=== PATIENT | male | born 1970 | race African-American/Black ===

== ENCOUNTER 2019-06-20 14:03 | Outpatient (CLI) | payer MEDICARE, MEDICAID, SELFPAY ==
[2019-06-20 16:14] LABS: Prostate Specific Antigen 0.4 ng/mL (< OR = 4.0)
== END 2019-06-20 14:04 | disposition home or self-care (01) ==
PROVIDERS: PCP Family Medicine; Visit Provider Nurse Practitioner Family
DX: R97.20 Elevated prostate specific antigen [PSA] (principal); R30.0 Dysuria
CPT/HCPCS: 36415; 84153; G0103

== ENCOUNTER 2020-10-16 09:25 | Outpatient (CLI) | payer MEDICARE, MEDICAID, SELFPAY ==
--- NOTE | ~2020-10-16 | XR_ITS ---
EXAMINATION: XR chest 2V DATE: 10/16/2020 09:49 INDICATION: Tobacco use, hypertension TECHNIQUE: PA and lateral views of the chest are obtained. COMPARISON: 04/11/2018 FINDINGS: The lungs are free of acute opacities. There is no pleural effusion or pneumothorax. The ca rdiomediastinal silhouette is normal. There is mild thoracic spondylosis. IMPRESSION: 1. No acute cardiopulmonary abnormality. Reviewed, dictated and finalized at location A.
== END 2020-10-16 09:26 | disposition home or self-care (01) ==
PROVIDERS: PCP Emergency Medicine; Visit Provider Emergency Medicine
DX: Z72.0 Tobacco use (principal); I10 Essential (primary) hypertension
CPT/HCPCS: 71046

== ENCOUNTER 2021-02-13 09:46 | Emergency (ER) | payer MEDICARE, MEDICAID, SELFPAY ==
[2021-02-13 09:50] VITALS: BP 132/83; PULSE 78; RESP 18; TEMP 36.4; O2SAT 98
[2021-02-13 10:19] LABS: Basophils Absolute Auto 0.1 K/mm3 (0.0-0.1); Basophils Percent Auto 0.6 % (0.2-1.2); Eosinophils Absolute Auto 0.1 K/mm3 (0-0.3); Eosinophils Percent Auto 1.4 % (0-4.4); Hematocrit 46.3 % (42.0-52.0); Hemoglobin 15.9 g/dL (14.0-18.0); Immature Granulocyte Absolute 0.03 K/mm3 (0.00-0.031); Immature Granulocyte Percent A 0.3 % (0-0.5); Lymphocytes Absolute Auto 1.69 K/mm3 (0.9-3.2); Lymphocytes Percent Auto 17.7 % (18.3-44.2); Mean Corpuscular HGB Conc 34.3 g/dl (32-36); Mean Corpuscular Hemoglobin 29.3 pg (26-34); Mean Corpuscular Volume 85.3 fl (80-100); Mean Platelet Volume 9.9 fl (7.4-10.4); Monocytes Percent Auto 10.6 % (2.6-8.5); Neutrophils Absolute Auto 6.7 K/mm3 (1.3-6.7); Neutrophils Percent Auto 69.4 % (45.5-73.1); Platelet Count Result 213 k/mm3 (150-375); Red Blood Count 5.43 M/mm3 (4.6-6.20); Red Cell Distribution Width 14.2 % (11.5-14.5); White Blood Count 9.6 K/mm3 (4.5-10.0)
[2021-02-13] MEDS: BELLADONNA ALK/PHENOB ELIX 10 ML, MAG HYDROX/ALUMINUM HYD/SIMETH 30 ML, LIDOCAINE HCL 2... PO (11:12)
[2021-02-13 12:04] LABS: Add Urine Microscopic? YES; Appearance Urine Clear (Clear); Bilirubin Urine Negative (Negative); Blood Urine Negative (Negative); Color Urine Yellow (Yellow); Glucose Urine UA Negative (Negative); Ketones Urine Negative (Negative); Leukocyte Esterase Ur Negative LEU/UL (Negative); Mucus Urine Rare /lpf; Nitrate Urine Negative (Negative); Protein Urine 1+ mg/dL (Negative); Specific Grav Ur 1.026 (1.001-1.035); Squamous Epithelial Cell Urine Rare /hpf (Few)
[2021-02-13 12:47] VITALS: BP 137/97; PULSE 80; RESP 14; TEMP 36.3; O2SAT 99
--- NOTE | 2021-02-13 12:50 | PC.NURSE ---
Patient tells me that he is feeling better at this time. still has pain to report but it is better than when he came into the ED.
--- NOTE | 2021-02-13 12:55 | ED.ABDPAIN ---
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 Patient states that he is seeing his primary care Dr. Reed who told him to present to the emergency department if he felt the pain was bad. He saw him this morning. Patient is being managed by GI specialist Dr. Bear Wild in [place]. He states that he was started on famotidine and dicyclomine and has noted improvement in his symptoms. He states he has also noticed improvement in his symptoms by tailoring his diet to avoid spicy and other foods that he has noted or triggers. Patient reports that he had a CT abdomen pelvis performed on 02-09-21 in [place] but he is unsure of the results. Patient denies any fevers, chills, present vomiting or nausea. Patient denies any bloody or dark stools. <Bárbara Chang PA-C - Last Filed: 02/13/21 15:15> Related Data Home Medications: Home Medications Medication Instructions Recorded Confirmed amlodipine 10 mg tablet 10 mg PO DAILY 09/24/20 09/24/20 atorvastatin 40 mg tablet 40 mg PO DAILY 09/24/20 09/24/20 haloperidol decanoate 100 mg/mL 100 mg IM ONCE 09/24/20 09/24/20 intramuscular solution metoprolol succinate 50 mg 50 mg PO DAILY 09/24/20 09/24/20 tablet,extended release 24 hr risperidone 4 mg tablet 4 mg PO BID 09/24/20 09/24/20 trazodone 100 mg tablet 100 mg PO QHS 09/24/20 09/24/20 aspirin 81 mg PO DAILY 02/13/21 benztropine PO 02/13/21 dicyclomine mg 02/13/21 famotidine PO 02/13/21 <Bárbara Chang PA-C - Last Filed: 02/13/21 15:15> Allergies/Adverse Reactions: Allergies Allergy/AdvReac Type Severity Reaction Status Date / Time lisinopril Allergy Unknown Unknown Verified 02/13/21 09:53 NKDA,NO LATEX Allergy Unknown Unknown Uncoded 09/24/20 10:24 <Bárbara Chang PA-C - Last Filed: 02/13/21 15:15> Review of Systems Review of Systems: CONSTITUTIONAL: Denies fever, chills, or sweats. EYES: Denies visual changes, redness, or discharge. ENT: Denies rhinorrhea, congestion, sore throat, or otalgia. CARDIOVASCULAR: Denies chest pain, palpitations, or edema. RESPIRATORY: Denies cough or dyspnea. GASTROINTESTINAL: Reports intermittent epigastric pain denies abdominal pain, nausea, present vomiting, or diarrhea. GENITOURINARY: Denies dysuria or hematuria. SKIN: Denies rash or itching. MUSCULOSKELETAL: Denies back pain, joint pain, or myalgia. NEUROLOGIC: Denies headache, numbness, dizziness, or weakness. PSYCHIATRIC: Denies anxiety or depression. <Bárbara Chang PA-C - Last Filed: 02/13/21 15:15> [facility] Family History Family History: Family History (Updated 09/24/20 @ 10:28 by Kristy Lu CMA) Father Asthma Sibling Diabetes mellitus Hypertension Other Depression <Bárbara Chang PA-C - Last Filed: 02/13/21 15:15> Social History Social History: Social History (Updated 09/24/20 @ 10:28 by Kristy Lu CMA) Smoking status: Current every day smoker Tobacco type: cigarettes Alcohol intake: never Substance use: never Substance use type: does not use <Bárbara Chang PA-C - Last Filed: 02/13/21 15:15> Exam Narrative: GENERAL: Well-appearing, well-nourished, and in no acute distress. Well-appearing and nontoxic. No signs of discomfort H
--- NOTE | 2021-02-13 13:08 | PC.NURSE ---
Per [place] in lab, chem panel rejected due to hemolysis.
[2021-02-13 13:24] LABS: Alanine Aminotransferase 27 U/L (4-50); Albumin Level 4.8 g/dL (3.5-5.1); Alkaline Phosphatase 125 U/L (38-126); Anion Gap 7 mmol/L (8-16); Aspartate Amino Transferase 16 U/L (17-59); Bilirubin,Total 0.4 mg/dL (0.2-1.3); Blood Urea Nitrogen 10 mg/dL (9-20); Calcium 9.5 mg/dL (8.4-10.2); Carbon Dioxide 32 mmol/L (22-30); Chloride 100 mmol/L (98-107); Estimated CRCL calculation 109 ml/min; Estimated Glomerular Filt Rate > 60; Glucose 126 mg/dL (65-110); Lipase 21 U/L (23-300); Potassium 4.2 mmol/L (3.4-5.0); Sodium 139 mmol/L (137-145)
[2021-02-13 14:14] VITALS: BP 132/91; PULSE 80; RESP 19; TEMP 36.6; O2SAT 97
== END 2021-02-13 14:14 | disposition home or self-care (01) ==
PROVIDERS: Emergency Provider Emergency Medicine; PCP Emergency Medicine
DX: K29.70 Gastritis, unspecified, without bleeding (principal); F17.210 Nicotine dependence, cigarettes, uncomplicated
CPT/HCPCS: 36415; 80053; 81001; 83690; 85025; 99283; A9270

== ENCOUNTER 2021-05-07 12:56 | Outpatient (CLI) | payer MEDICARE, MEDICAID, SELFPAY ==
--- NOTE | ~2021-05-07 | XR_ITS ---
EXAMINATION: XR chest 2V DATE: 05/07/2021 13:10 INDICATION: History of tobacco use TECHNIQUE: PA and lateral views of the chest are obtained. COMPARISON: 10/16/2020 FINDINGS: The lungs are free of acute opacities. There is no pleural effusion or pneumothorax. The ca rdiomediastinal silhouette is normal. There is mild thoracic spondylosis. IMPRESSION: 1. No acute cardiopulmonary abnormality. Reviewed, dictated and finalized at location A. NG MAKER
== END 2021-05-07 12:57 | disposition home or self-care (01) ==
PROVIDERS: PCP Emergency Medicine; Visit Provider Emergency Medicine
DX: Z87.891 Personal history of nicotine dependence (principal); M47.814 Spondylosis without myelopathy or radiculopathy, thoracic region
CPT/HCPCS: 71046

== ENCOUNTER 2022-02-03 09:20 | Outpatient (CLI) | payer MEDICARE, MEDICAID, SELFPAY ==
--- NOTE | ~2022-02-03 | XR_ITS ---
EXAMINATION: XR hip BI 2V w AP pelvis DATE: 02/03/2022 10:35 INDICATION: Pelvic fracture. TECHNIQUE: An anteroposterior view of the pelvis and 2 views of each hip were obtained. COMPARISON: None. FINDINGS: Bone alignment is normal. No fracture. There is mild osteoarthritis of the hips. IMPRESSION: 1. Mild osteoarthritis of the hips. Reviewed, dictated and finalized at location A.
[2022-02-03 11:18] LABS: Creatinine Urine 145.9 mg/dL
[2022-02-03 11:19] LABS: Creatine Kinase 100 U/L (55-170)
[2022-02-03 11:22] LABS: MALB Creatinine Ratio 16.2 mg/g (0-30); Microalbumin Urine Random 23.6 mg/L (0-16.7)
[2022-02-03 11:22] LABS: Rheumatoid Factor < 8.6 IU/ML (<12)
[2022-02-03 12:01] LABS: HIV 1/2 Ab P24 Ag Result Negative (Negative)
[2022-02-03 12:14] LABS: Hepatitis B Surface Antigen Negative (Negative)
[2022-02-03 12:20] LABS: HAV RESULT Negative (Negative); Hepatitis B Core IgM Result Negative (Negative)
[2022-02-03 12:26] LABS: Folic Acid 7.6 ng/mL (2.76->20)
[2022-02-03 12:32] LABS: Hepatitis C Virus Antibody Negative (Negative)
[2022-02-04 15:56] LABS: Rapid Plasma Reagin Non-Reactive (NonReactive)
== END 2022-02-03 09:21 | disposition home or self-care (01) ==
PROVIDERS: PCP Emergency Medicine; Visit Provider Emergency Medicine
DX: N28.9 Disorder of kidney and ureter, unspecified (principal); M19.071 Primary osteoarthritis, right ankle and foot; F20.9 Schizophrenia, unspecified; M16.0 Bilateral primary osteoarthritis of hip
CPT/HCPCS: 36415; 73521; 80074; 82043; 82306; 82550; 82607; 82746; 86038; 86430; 86592; 86703; 87491; 87591; G0432

== ENCOUNTER 2022-02-16 13:12 | Outpatient (CLI) | payer MEDICARE, MEDICAID, SELFPAY ==
[2022-02-16 14:51] LABS: HIV 1/2 Ab P24 Ag Result Negative (Negative)
[2022-02-16 14:53] LABS: Hepatitis B Surface Antigen Negative (Negative)
[2022-02-16 15:00] LABS: HAV RESULT Negative (Negative); Hepatitis B Core IgM Result Negative (Negative)
[2022-02-16 15:11] LABS: Hepatitis C Virus Antibody Negative (Negative)
== END 2022-02-16 13:13 | disposition home or self-care (01) ==
LOC: ANHLAB 13:16
PROVIDERS: PCP Emergency Medicine; Visit Provider Emergency Medicine
DX: Z00.00 Encounter for general adult medical examination without abnormal findings (principal)
CPT/HCPCS: 36415; 80074; 86703; G0432

== ENCOUNTER 2024-06-28 14:29 | Outpatient (CLI) | payer MEDICARE, MEDICAID, SELFPAY ==
--- OUTSIDE RECORDS SUMMARY | 2024-06-21 10:05 | XMS_ITS | CONTINUITY OF CARE DOCUMENT ---
Author Name andriy humbertopeter Address Unknown Organization [facility] Address [address] [place] [address] Phone [phone] Care Team Providers Care Custodian Athletic Equipment Name Role Phone Dariana DIALLO, Gabe Unavailable BRITTNEY SANTANA MD Unavailable [phone] BRITTNEY SANTANA MD Unavailable PROBLEMS Condition Status Date Provider Notes Long-term (current) use of other medications active Leon Jorgensen RN Microalbuminuria active Eyad Dunbar MD Exposure to SARS-associated coronavirus;NEG SWAB active Eyad Dunbar MD Dyspnea completed - Eyad Dunbar MD Diastolic dysfunction active Eyad Dunbar MD Sleep apnea active Eyad Dunbar MD Chest pain, atypical active Eyad Campbell Sinus tachycardia completed - Eyad Dunbar MD Schizophrenia, chronic active Eyad Dunbar MD B12 deficiency active Eyad Dunbar MD Vitamin D deficiency active Eyad Campbell HTN essential active Eyad Dunbar MD angioedema;DUE TO IRENE active Eyad Dunbar MD Tobacco dependence, continuous active Eyad Dunbar MD Hyperlipidemia; with high crp active Eyad Dunbar MD Screening active Eyad Dunbar MD neg tsh and a1c Obesity active Eyad Dunbar MD ENCOUNTERS Date Type Provider Location Encounter Diag nosis - In-person encounter Office Visit Gabe Westbrook MD [facility] - In-person encounter Office Visit Gabe Westbrook MD [facility] - In-person encounter Office Visit Eyad Dunbar MD [facility] Sinus tachycardiaChest pain, atypicalDiastolic dysfunctionDyspnea - In-person encounter Office Visit Eyad Dunbar MD [facility] ObesityScreeningHyperlipi demia; with high crpTobacco dependence, continuousangioedema;DUE TO ACEHTN essentialVitamin D [id number] deficiencySchizophrenia, chronicChest pain, atypicalSleep apnea VITAL SIGNS Date Observation Value Provider Body Mass Index (Ratio) 42.18 kg/m2 Brittney Westbrook MD blood pressure, cuff size regular [facility] blood pressure, diastolic 89 mm[Hg] Ja et blood pressure, systolic 137 mm[Hg] [facility] pulse rate 73 /min Georgi respiratory rate E&M 12 /min Georgi oxygen saturation, oximetry 95 % Georgi weight E&M 294 [lb_av] Georgi height E&M 70 [in_i] Georgi weight E&M 313 [lb_av] Kylee dsouza Body Mass Index (Ratio) 44.91 kg/m2 Brittney Westbrook MD blood pressure, cuff size large Ke rri Timueana blood pressure, diastolic 80 mm[Hg] Ke rri Timueana blood pressure, systolic 144 mm[Hg] Ker ri Timuenenfelder oxygen saturation, oximetry 98 % Izabel Gruenenfelder respiratory rate E&M 12 /min Izabel G ruenenfelder pulse rate 91 /min Izabel Gruenenfe lder weight E&M 313 [lb_av] Izabel Gruenenfe lder height E&M 70 [in_i] Izabel Gruenenfe lder Body Mass Index (Ratio) 41.89 kg/m2 Marylou Dunbar MD blood pressure, diastolic 83 mm[Hg] Ca therine Dora blood pressure, systolic 155 mm[Hg] Cat herine John oxygen saturation, oximetry 97 % Brooklyn John respiratory rate E&M 18 /min Catheri ne Dora pulse rate 102 /min Brooklyn John weight E&M 292 [lb_av] Brooklyn John blood pressure, cuff size regular Ca therine Dora height E&M 70 [in_i] Brooklyn John weight E&M 313 [lb_av] Solomon galarza Body Mass Index (Ratio) 44.91 kg/m2 Marylou Dunbar MD blood pressure, cuff size large Ke rri Gruenenfelder blood pressure, diastolic 80 mm[Hg] Ke rri Gruenenfelder blood pressure, systolic 120 mm[Hg] Kendra ri Gruenenfelder oxygen saturation, oximetry 94 % Izabel Gruenenfelder respiratory rate E&M 16 /min Izabel G ruenenfelder pulse rate 113 /min Izabel Gruenenfe lder weight E&M 313 [lb_av] Izabel Gruenenfe lder height E&M 70 [in_i] Izabel Taylorneishacharles lder ALLERGIES Allergy Name Onset Date Reaction Criticality Status LISINOPRIL Low Criticality active RESULTS Date Observation Value Provider Reference Range Interpretation Location hemoglobin A1C, blood, as % of total hemoglobin 5.6 % OF TOTAL HGB [facility] <5.7 Normal C-reactive protein, by highly sensitive test 3.3 mg/L [facility] High calcium, serum 9.4 mg/dL [facility] 8.6-10.3 Normal carbon dioxide, venous blood 29 mmol/L [facility] 20-32 Normal chloride, serum 101 mmol/L [facility] 98-110 Normal potassium, serum 4.3 mmol/L [facility] 3.5-5.3 Normal sodium, serum 138 mmol/L [facility] 135-146 Normal urea nitrogen/creatinine ratio, serum NOT APPLICABLE (calc) [facility] 6-22 Estimated Glomerular Filtration Rate (calc) 104 mL/min/{1.73_ m2} [facility] > OR = 60 Normal creatinine, serum 0.98 mg/dL [facility] 0.70-1.33 Normal urea nitrogen, blood 9 mg/dL [facility] 7-25 Normal blood glucose, random 92 mg/dL [facility] 65-99 Normal thyroid stimulating hormone, serum 2.19 u[IU]/mL [facility] 0.40-4.50 Normal free thyroxine index 2.6 [facility] 1.4-3.8 Normal thyroxine, serum, total 8.0 ug/dL [facility] 4.9-10.5 Normal triiodothyronine resin uptake 32 % [facility] 22-35 Normal microalbumin/creati nine ratio, urine 79 MCG/MG CREAT [facility] <30 High microalbumin/total urine volume 77 mg/L [facility] Units converted. See lab report for original value. Normal creatinine, random, urine 98 mg/dL [facility] 20-320 Normal cholesterol, non-HDL, total 71 MG/DL (CALC) [facility] <130 Normal cholesterol/HDL ratio, serum, percent 2.7 (calc) [facility] <5.0 Normal LDL cholesterol, serum 53 MG/DL (CALC) [facility] Normal triglyceride, serum, fasting 95 mg/dL [facility] <150 Normal HDL cholesterol, serum 43 mg/dL [facility] > OR = 40 Normal cholesterol, serum 114 mg/dL [facility] <200 Normal pro brain natriuretic peptide 19 pg/mL [facility] 0-121 HISTORY OF MEDICATION USE Medication Status Instructions Dates Provider Indications Com ments aspirin 81 mg tablet,chewable active Eyad Dunbar MD metoprolol tartrate 50 mg tablet active TAKE 1 TABLET BY MOUTH TWICE A DAY WITH MEALS Erin Fan HTN essential omeprazole 20 mg tablet,delayed release (/EC) completed once a day - Eyad Dunbar MD ASPIRIN 81 81 MG ORAL TABLET DELAYED RELEASE completed 1 tablet by mouth once a day - Eyad Dunbar MD Vitamin B-12 1,000 mcg tablet active 1 tablet once a day Izabel Youssef Risperdal 4 mg tablet active Take 1 twice a day Izabel Youssef benztropine 1 mg tablet active Take 1 twice a day Izabel Youssef metoprolol tartrate 50 mg tablet completed one tab. twice daily - Izabel Youssef cholecalciferol (vitamin D3) 50 mcg (2,000 unit) capsule active 1 tablet by mouth once a day Eyad Dunbar MD amlodipine 10 mg tablet active 1 tablet by mouth once a day Izabel Youssef Haldol Decanoate 100 mg/mL solution active 1 every two weeks Izabel Youssef trazodone 100 mg tablet active 3 every night Izabel Youssef Lipitor 40 mg tablet active 1 tablet once a day Izabel Youssef SOCIAL HISTORY Date Observation Value Provider drug use no Gabe Westbrook MD alcohol use, average drinks per day social Gabe Westbrook MD alcohol use yes Gabe Westbrook MD social history E&M S moking History: P atient currently smokes every day. P atient has been counseled to quit. Gabe Westbrook MD social history reviewed E&M revi ewed - no changes required Gabe Westbrook MD smoking/tobacco cess ation, patient education and counseling yes Gabe Westbrook MD smoking status Current every day smoker U natalia Westbrook MD social history E&M S moking History: P atient currently smokes every day. P atient has been counseled to quit. Eyad Dunbar MD social history reviewed E&M revi ewed - no changes required Eyad Dunbar MD smoking/tobacco cess ation, patient education and counseling yes Brooklyn John number of years as a smoker 33 a Brooklyn John smoking history, tot al pack/day 1 ppd Brooklyn Dora cigarette use yes Brooklyn Dora smoking status Current every day smoker C atherine John smoking/tobacco cess ation, patient education and counseling yes Eyad Dunbar MD social history E&M S moking History: P atient currently smokes every day. Eyad Dunbar MD social history reviewed E&M revi ewed - no changes required Eyad Dunbar MD number of years as a smoker 33 a Izabel Gruenenfelder smoking history, tot al pack/day 1 ppd Izabel Youssef cigarette use yes Izabel saab smoking status Current every day smoker K jennifer Youssef INSURANCE PROVIDERS Payer name Policy type / Coverage type [employer] party ID [facility] CHRONIC COMPLETE ASSURE (PPO C-SNP) Medicare [id number] [facility] Medicaid 1 [id number] ADVANCE DIRECTIVES Name Date DISCUSSED - NO DECISION MADE TREATMENT PLAN Date Name Performer [id number],C, B P today: 137/89 P rior BP: 144/80 (10/11/2022) Labs Reviewed: C reat: 0.98 (08/26/2021) C hol: 114 (08/26/2021) HDL: 43 (08/26/2021) LDL: 53 MG/DL (CALC) (08/26/2021) T (08/26/2021) His updated medication list for this problem includes: Aspirin 81 Mg Tablet,chewable (Aspirin) Amlodipine 10 Mg Tablet (Amlodipine) ..... 1 tablet by mouth once a day Metoprolol Tartrate 50 Mg Tablet (Metoprolol tartrate) ..... Take 1 tablet by mouth twice a day with meals Gabe Westbrook MD [id number],C,H is stress test showed no evidence for ischemia depsite going for only 3 minutes on the treadmill. no noted ST changes Gabe Westbrook MD [id number],C,check UACR Us yelena Westbrook MD [id number],C,T he Patient was reencouraged to stop smoking. Gabe Westbrook MD [id number],B, B P today: 144/80 P rior BP: 155/83 (08/06/2021) Labs Reviewed: C reat: 0.98 (08/26/2021) C hol: 114 (08/26/2021) HDL: 43 (08/26/2021) LDL: 53 MG/DL (CALC) (08/26/2021) T (08/26/2021) Gabe Westbrook MD [id number],C,I t is atypical and i will get his latest labs and schedule him for a stress test and an echo Gabe Westbrook MD [id number],C,76 Eyad nino MD [id number],B, Eyad Serot a [id number],S,DID NOT WANT RX OR SURGERY Eyad Dunbar MD [id number],C, H is updated medication list for this problem includes: Lipitor 40 Mg Tablet (Atorvastatin) ..... 1 tablet once a day Eyad Dunbar MD [id number],S, Eyad Serot a [id number],B, Eyad Serot a [id number],B, Eyad Serot a [id number],S, neg ct pe, NEG HOTLERW Eyad Dunbar MD [id number],S, Eyad Serot a [id number],S,NEG STRESS Ball paula Dunbar MD [id number],S,PRO 19 Eyad Dunbar MD [id number],S, Eyad Serot a [id number],S, m od t o get tietarton Eyad Dunbar MD [id number],C,mod Eyad lane MD Cardiology: B P today: 137/89 P rior BP: 144/80 (10/11/2022) Labs Reviewed: C reat: 0.98 (08/26/2021) C hol: 114 (08/26/2021) HDL: 43 (08/26/2021) LDL: 53 MG/DL (CALC) (08/26/2021) T (08/26/2021) His updated medication list for this problem includes: Aspirin 81 Mg Tablet,chewable (Aspirin) Amlodipine 10 Mg Tablet (Amlodipine) ..... 1 tablet by mouth once a day Metoprolol Tartrate 50 Mg Tablet (Metoprolol tartrate) ..... Take 1 tablet by mouth twice a day with meals Gabe Westbrook MD Cardiology:His stres s test showed no evidence for ischemia depsite going for only 3 minutes on the treadmill. no noted ST changes Gabe Westbrook MD Cardiology:check UACR Gabe brito MD Cardiology:The Patient was reenc ouraged to stop smoking. Gabe Westbrook MD Cardiology: B P today: 144/80 P rior BP: 155/83 (08/06/2021) Labs Reviewed: C reat: 0.98 (08/26/2021) C hol: 114 (08/26/2021) HDL: 43 (08/26/2021) LDL: 53 MG/DL (CALC) (08/26/2021) T (08/26/2021) Gabe Westbrook MD Cardiology:It is aty pical and i will get his latest labs and schedule him for a stress test and an echo Gabe Westbrook MD :76 Eyad Dunbar MD Cardiology Eyad Dunbar MD Cardiology:DID NOT WANT RX OR ZAMBRANO RGERY Eyad Dunbar MD Cardiology: H is updated medication list for this problem includes: Lipitor 40 Mg Tablet (Atorvastatin) ..... 1 tablet once a day Eyad Dunbar MD Cardiology Eyad Dunbar MD Cardiology Eyad Dunbar MD Cardiology Eyad Dunbar MD Cardiology: neg ct p e, NEG HOTLERW Eyad Dunbar MD Cardiology Eyad Dunbar MD Cardiology:NEG STRESS Eyad nino MD Cardiology:PRO 19 Eyad Dunbar MD Cardiology Eyad Dunbar MD Cardiology: daisy bonillatayadiel Dunbar MD sleep titration ordered:zhen Dunbar MD :pro [address] pe Eyad Dunbar MD Cardiology New Patient Eyad lane MD Cardiology New Patient Eyad Se domingo DIALLO Cardiology New Patient Eyad Se domingo DIALLO Cardiology New Patient Eyad Se domingo DIALLO Cardiology New Patient Eyadkelley lane MD Cardiology New Patient Eyad Se domingo DIALLO Cardiology New Patient Eyad Se domingo DIALLO Cardiology New Patient Eyad lane MD Cardiology New Patient Eyad lane MD Cardiology New Patient Eyad Se domingo DIALLO Cardiology New Patient :eng ct p e Eyad Dunbar MD Date Name Microalb/Creatinine Urine, Random Complete Echo Complete Echo Stress Routine TSH, free T4, total T3 LIPID PANEL CRP, high sensitivit y BASIC METABOLIC PANE L W/EGFR Microalb/Creatinine Urine, Random HEMOGLOBIN A1c Complete Echo RPM (remote patient monitoring) CT, Coronary Calcium Score Sleep Study Titratio n Stress Routine Sleep Study Home Holter Monitor 24 Hr PROBNP, N TERMINAL CT, Coronary Calcium Score Complete Echo CXR- PA/Lat HISTORY OF PROCEDURES Procedure Date Procedure Name Provider Procedure Notes S tatus BAKARI Westbrook MD completed Nika, 24 or 48 Eyad Dunbar MD co mpleted BAKARI Dunbar MD complete d
--- OUTSIDE RECORDS SUMMARY | 2024-06-21 10:06 | XMS_ITS | Data Portability ---
[facility] [address] [address] Care Team Providers Care Title Clerk Automobile Name Role Phone [facility] Psychia trist KEN MANDUJANO Slate Handler Assessment No assessment recorded. Plan of Treatment Reminders Order Date Submit Date Provider Last Modified By Organization Details Last Modified Time Details Appointments ANY 15 2024 02:00P Carlos A Gregg MD Not available Not available Not available Lab HbA1c (hemoglob in A1c), blood 2022 023 [facility], [address], [place], [address], 04/27/2023 16:02:00 lipid panel, serum 2022 023 [facility], [address], [place], [address], 04/27/2023 16:02:00 TSH, ultra-sen sitive, serum 2023 024 [facility], [address], [place], [address], 10/05/2023 17:24:19 PSA, total, serum or plasma 2023 024 [facility], [address], [place], [address], 10/05/2023 17:24:19 basic metabolic 1998 panel, serum or plasma 2023 024 [facility], [address], [place], [address], 10/05/2023 15:34:51 CBC 2023 024 [facility], [address], [place], [address], 10/05/2023 17:24:19 HbA1c (hemoglob in A1c), blood 2023 024 [facility], [address], [place], [address], 10/05/2023 17:24:19 lipid panel, serum 2023 024 [facility], [address], [place], [address], 10/05/2023 17:24:19 albumin/c reatinine , mass ratio, urine 2023 024 [facility], [address], [place], [address], 10/05/2023 17:24:19 HbA1c (hemoglob in A1c), blood 2023 024 [facility], [address], [place], [address], 03/31/2024 06:26:44 lipid panel, serum 2023 024 [facility], [address], [place], [address], 2024 12:35:44 Referral dentist referral - Poor dentition 2022 023 becka Simental, [address] [place] [address], [address], 05/27/2023 15:34:28 sleep medicine referral - KETAN 2022 023 becka Kirby MD, [address] [place], [address], 02/15/2024 10:45:02 diabetic ophthalmo logy referral - HBA1C 5.7% 2023 024 becka Matchup, [address] , [place], [address], 07/15/2023 12:46:20 Procedures None recorded. Surgeries None recorded. Imaging LDCT, chest, for lung cancer screening 2022 023 [facility] ([facility]), [address] [place], [address], 04/21/2023 14:51:07 LDCT, chest, for lung cancer screening 2023 025 [facility] (Imaging), [address], [place], [address], 06/19/2024 15:53:15 Medication Orders metformin ER 500 mg tablet,ex tended release 24 hr 2022 023 [facility], [address] [place] [address] , [address], [place], [place], [id number], 02/21/2024 12:43:22 OneTouch Ultra Test strips 2022 023 [facility], [address] [place] [address] , [address], [place], [place], [id number], 03/29/2023 12:28:28 losartan 25 mg tablet 2023 024 [facility], [address] [place] [address] , [address], [place], [place], [id number], 05/25/2023 12:30:08 Patient TargetsNo targets recorded. Patient Instructions Encounter Date Encounter Id Patient Instructions Last Modified By Organization Details Last Modified Time 11/24/2022 [id number] type 2 diabetes: care instructions oajao Not available 11/24/2022 15:43:20 Start Metformin, side effects were discussed Colonoscopy report from ? (A clinic in [place]) CXR report from Dentist Records Stop smoking Cardiology as referred Follow up in 6 weeks oajao Not available 11/24/2022 16:42:23 03/29/2023 [id number] Quitting Tobacco : Care Instructions oajao Not available 03/29/2023 12:32:03 body mass index: care instructions oajao Not available 03/29/2023 12:32:52 learning about healthy weight oajao Not available 03/29/2023 12:32:52 sleep apnea: car e instructions oajao Not available 03/29/2023 19:28:[address] Vyas i Note from the C T Tech at [facility] Sleep medicine LDCT Stop smoking Follow up in 3 months and PRN oajao Not available 03/29/2023 12:32:27 05/25/2023 [id number] type 2 diabetes: care instructions oajao Not available 05/25/2023 12:25:50 high blood pressure: care instructions oajao Not available 05/25/2023 12:25:50 learning about h igh blood pressure oajao Not available 05/25/2023 12:25:50 Schedule a follo w up appointment with your orthopedic surgeon,, Dr Ernst Start Losartan Follow up in 3-4 weeks oajao Not available 05/25/2023 12:31:00 07/15/2023 [id number] body mass index: care instructions oajao Not available 07/15/2023 13:00:55 learning about healthy weight oajao Not available 07/15/2023 13:00:55 Sleep medicine a s previously referred Labs in Sep, 2023 Follow up in 6 months and PRN oajao Not available 07/15/2023 13:00:00 The form was completed and faxed, Mr Montanez was also given a copy. I see no reason why he cannot donate plasma but the decision is the medical staff specialist's. oajao Not available 07/15/2023 14:20:47 02/21/2024 [id number] hip arthritis: c are instructions oamaggeio Not available 02/21/2024 12:48:21 Labs LDCT in 03/2024 Sleep medicine as referred Follow up in 5 months and PRN oayazmin Not available 02/21/2024 12:50:32 Reason for Referral Dentist Referral for Impaire d dentition Poor dentition Poor dentition Referring Physician: Timbo Gregg, Internal Medicine, Encounter Date: 11/24/2022 Sleep Medicine Referral for Obstructive sleep apnea syndrome KETAN Referring Physician: Timbo Gregg, Internal Medicine, Encounter Date: 03/29/2023 Diabetic Ophthalmology Refer ral for Type 2 diabetes mellitus without complication HBA1C 5.7% HBA1C 5.7% Referring Physician: Timbo Gregg Internal Medicine, Encounter Date: 05/25/2023 Results Created Date Observation Date Name Description Value Unit Range Abnormal Flag Note LastModifiedBy Organization Detail LastModifiedTime 11/25/1905/07/2021 XR, chest No observ ation record ed. [address], [place], [address], 03/29/2023 12:23:10 12/31/19 23 12/30/2022 XR, chest , 2 view No observ ation record ed. [facility] [address] [place], [address], 03/29/2023 12:23:10 02/23/20 23 02/22/2023 cardi ac stres s test No observ ation record ed. [facility] [address], [place], [address], 03/29/2023 12:23:10 02/23/20 23 02/22/2023 cardi ac stres s test No observ ation record ed. [facility] [address], [place], [address], 03/29/2023 12:23:10 02/23/20 23 02/22/2023 trans -thor acic echoc ardio gram (TTE) (PROC ) No observ ation record ed. [facility] [address], [place], [address], 03/29/2023 12:23:10 04/21/20 23 04/21/2023 LDCT, chest , for lung cance r scree benitez No observ ation record ed. [facility] [address], [place], [address], 05/25/2023 12:17:34 11/09/19 24 02/03/2022 XR, hip + pelvi s, bilat eral No observ ation record ed. [facility] [address], [place], [address], 02/21/2024 12:36:42 Result Notes None recorded. Problems Name Problem SNOMED Code Status Onset Date Resolution Date Notes Provider Name and Address Organization Details Recorded Time History of pneumonia 102291563 Active 2022 Timbo Gregg MD Attn: Corey gee,[address] [place], [address], [facility] 3 14:13:01 Type 2 diabetes mellitus without complicatio n 563740274 Active 2022 Timbo Gregg MD Attn: Corey gee,[address] [place], [address], [place] [facility] 5 10:18:59 SARS-CoV-2 vaccination declined 6680541244 Active 2022 Timbo Gregg MD Attn: Corey gee,[address] [place], [address], [facility] 3 14:32:24 Vaccination declined 0338990662 Active 2022 Timbo Gregg MD Attn: Corey gee,[address] [facility], [place], [address], [place] [facility] 3 14:32:38 Smoker 28664295 Active 2022 Timbo Gregg MD Attn: Corey gee,[address] [facility], [place], [address], [place] [facility] 3 14:32:54 Schizophren ia 78814352 Active 2022 Timbo Gregg MD Attn: Accountagustina g,[address] [facility], [place], [address], [place] [facility] 3 18:56:24 Obstructive sleep apnea syndrome 66987263 Active 2022 Timbo Gregg MD Attn: Loriagustina gee,[address] [facility], [place], [address], [place] [facility] 3 18:56:26 Family history of malignant tumor of hypopharynx 3547923756148 4106 Active 2022 Timbo Gregg MD Attn: Corey gerard,[address] [facility], [place], [address], [place] [facility] 3 15:49:14 Family history of malignant neoplasm of lung 087359522 Active 2022 Timbo Gregg MD Attn: Loriagustina gee,[address] [facility], [place], [address], [place] [facility] 3 15:49:15 Benign essential hypertensio n 5914712 Active 2023 Timbo Gregg MD Attn: Corey gee,[address] [facility], [place], [address], [place] [facility] 5 10:19:06 Influenza vaccination declined 279052559 Active 2023 Timbo Gregg MD Attn: Corey g,[address] [facility], [place], [address], [place] [facility] 4 13:00:18 Osteoarthri tis of hip 555809279 Active 2023 Timbo Gregg MD Attn: Accountagustina gee,[address], [place], [address], [facility] 13:00:20 Problem Notes None recorded. Procedures Surgical History Date Name Laterality Status Provider Name and Address Organization Details Recorded Time 07/15/19 24 Diabetic Foot Exam completed Timbo Gregg MD Attn: Accounting,[address] [facility], [place], [address], [facility] 07/15/2023 13:01:36 05/25/19 24 Diabetic Foot Exam completed Timbo Gregg MD Attn: Accounting,[address] [facility], [place], [address], [facility] 05/25/2023 13:52:53 03/29/20 23 Diabetic Foot Exam completed Timbo Gregg MD Attn: Accounting,[address] [facility], [place], [address], [facility] 03/29/2023 19:25:46 07/09/19 22 colonoscopy completed Timbo Gregg MD Attn: Accounting,[address] [facility], [place], [address], [facility] 12/07/2022 13:25:32 incision completed Tmibo Gregg MD Attn: Accounting,[address] [facility], [place], [address], [facility] 10/06/2022 14:09:42 anterior tracheostomy completed Timbo Gregg MD Attn: Accounting,[address] [facility], [place], [address], [facility] 10/06/2022 14:10:11 procedure on lymph node completed Timbo Gregg MD Attn: Accounting,[address] [facility], [place], [address], [facility] 11/24/2022 15:41:10 Imaging Results Imaging Date Name Status LastModified by Organization Details LastModified Time 05/07/2021 XR, chest completed [facility] [address], [place], [address], 03/29/2023 12:23:10 12/30/2022 XR, chest, [address] [facility] [address] [place], [address], 03/29/2023 12:23:10 02/22/2023 cardiac stress test completed [facility] [address], [place], [address], 03/29/2023 12:23:10 02/22/2023 cardiac stress test completed [facility] [address], [place], [address], 03/29/2023 12:23:10 02/22/2023 trans-thoracic echocardiogram (TTE) (PROC) completed [facility] [address], [place], [address], 03/29/2023 12:23:10 04/21/2023 LDCT, chest, for lung cancer screening completed [facility] [address] [place], [address], 05/25/2023 12:17:34 02/03/2022 XR, hip + pelvis, bilateral completed [address] [place] [address], [address], 02/21/2024 12:36:42 Procedure Notes None recorded. Medical Equipment None Reported. Allergies Allergen ID Allergen Name Allergen Category Reaction Reaction Severity Criticality Documentation Date Start Date Code Code System Note Provider Name and Address Organization Details Recorded Time [id number] lisinopri l medicatio n anaphylax is Not available high 10/06/2022 31080 RxNorm Not Available Not Available Not Available [id number] 546s4 Product containin g angiotens in-conver ting enzyme inhibitor (product) medicatio n anaphylax is severe Not available 10/06/2022 27291 009 SNOMED Not Available Not Available Not Available Medications Name Sig Start Date Stop Date Status Note LastModified by Organization Details LastModified Time atorvasta tin 40 mg tablet TAKE 1 TABLET BY MOUTH EVERY EVENING 2023 active Not Available Not Available Not Avai lable risperido ne 4 mg tablet active Not Available Not Available Not Available haloperid ol decanoate 100 mg/mL intramusc ular solution 11/24 completed Not Available Not Available Not Available triamcino lone acetonide 0.1 % topical cream active Not Available Not Available Not Available OneTouch Ultra Test strips Take 1 strip every day by [employer]. route around the clock for 90 days. active Not Available Not Available No t Available amlodipin e 10 mg tablet TAKE 1 TABLET BY MOUTH DAILY 2024 active Not Available Not Available Not Avai lable trazodone 150 mg tablet active Not Available Not Available Not Available haloperid ol 10 mg tablet active Not Available Not Available Not Available losartan 25 mg tablet TAKE 1 TABLET BY MOUTH DAILY DIRECTED active Not Available Not Available No t Available benztropi ne 1 mg tablet active Not Available Not Available Not Available metoprolo l tartrate 50 mg tablet TAKE 1 TABLET BY MOUTH TWICE A DAY WITH MEALS 2024 active Not Available Not Available Not Avai lable haloperid ol decanoate 50 mg/mL intramusc ular solution 11/24 completed Not Available Not Available Not Available hydroxyzi ne HCl 25 mg tablet active Not Available Not Available No t Available metformin ER 500 mg tablet,ex tended release 24 hr TAKE 1 TABLET BY MOUTH DAILY 02/20 completed I stopped taking the Metformi n 02/21/20 24 Not Available Not Available Not Available peg 3350-elec trolytes 236 gram-22.7 4 gram-6.74 gram-5.86 gram solution active Not Available Not Available Not Available Vitals Date Recorded Body height Provider Name an d Address Organization Details Last Updated DateTime 11/24/2022 175.26 cm Sweetie Blake MA [facility] 023 15:33:37 Date Recorded Body mass index (BMI) Body weight Provider Name and Address Organization Details Last Updated DateTime 11/24/2022 45.3 kg/m2 133387.86 g Sweetie Blake MA [facility] 11/24/2022 15:34:55 Date Recorded Heart rate Provider Name an d Address Organization Details Last Updated DateTime 11/24/2022 70 /min Sweetie Blake MA [facility] 023 15:37:04 Date Recorded Oxygen saturation Oxygen saturation in Arterial blood by Pulse oximetry Provider Name and Address Organization Details Last Updated DateTime 11/24/2022 94 % 94 % Sweetie Blake MA [facility] 11/24/2022 15:37:06 Date Recorded Respiratory rate Provider Name a nd Address Organization Details Last Updated DateTime 11/24/2022 16 /min Sweetie HaydenKARLENE hurd [facility] 023 15:37:08 Date Recorded Body height Provider Name an d Address Organization Details Last Updated DateTime 03/29/2023 175.26 cm Sweetie Blake MA [facility] 023 12:00:53 Date Recorded Body mass index (BMI) Body weight Provider Name and Address Organization Details Last Updated DateTime 03/29/2023 42.9 kg/m2 137356.66 g Sweetie Blake MA [facility] 03/29/2023 12:01:00 Date Recorded Oxygen saturation Oxygen saturation in Arterial blood by Pulse oximetry Provider Name and Address Organization Details Last Updated DateTime 03/29/2023 95 % 95 % Sweetie Blake MA [facility] 03/29/2023 12:05:07 Date Recorded Heart rate Provider Name an d Address Organization Details Last Updated DateTime 03/29/2023 84 /min Sweetie [place] [facility] 023 12:05:10 Date Recorded Respiratory rate Provider Name a nd Address Organization Details Last Updated DateTime 03/29/2023 18 /min Sweetie HaydenKARLENE hurd [facility] 023 12:05:11 Date Recorded Body height Provider Name an d Address Organization Details Last Updated DateTime 05/25/2023 175.26 cm Sweetie Blake MA [facility] 024 11:50:59 Date Recorded Body mass index (BMI) Body weight Provider Name and Address Organization Details Last Updated DateTime 05/25/2023 43.9 kg/m2 312589.93 g KARLENE [facility] 05/25/2023 11:51:11 Date Recorded Oxygen saturation Oxygen saturation in Arterial blood by Pulse oximetry Provider Name and Address Organization Details Last Updated DateTime 05/25/2023 97 % 97 % KARLENE [facility] 05/25/2023 11:52:47 Date Recorded Heart rate Provider Name an d Address Organization Details Last Updated DateTime 05/25/2023 72 /min Sweetie Blake MA [facility] 11:52:48 Date Recorded Body temperature Provider Name a nd Address Organization Details Last Updated DateTime 05/25/2023 97.8 [degF] Sweetie Blake MA [facility] 2023 11:53:19 Date Recorded Body height Provider Name an d Address Organization Details Last Updated DateTime 07/15/2023 175.26 cm Sweetie Blake MA [facility] 12:35:55 Date Recorded Body mass index (BMI) Body weight Provider Name and Address Organization Details Last Updated DateTime 07/15/2023 43.9 kg/m2 671274.93 g Sweetie Blake MA [facility] 07/15/2023 12:36:03 Date Recorded Oxygen saturation Oxygen saturation in Arterial blood by Pulse oximetry Provider Name and Address Organization Details Last Updated DateTime 07/15/2023 95 % 95 % Sweetie Blake MA [facility] 07/15/2023 12:38:09 Date Recorded Heart rate Provider Name an d Address Organization Details Last Updated DateTime 07/15/2023 74 /min Sweetie HaydenKARLENE hurd [facility] 12:38:13 Date Recorded Respiratory rate Provider Name a nd Address Organization Details Last Updated DateTime 07/15/2023 20 /min Sweetie HaydenKARLENE hurd [facility] 12:38:23 Date Recorded Body height Provider Name an d Address Organization Details Last Updated DateTime 02/21/2024 175.26 cm Sweetie Blake MA [facility] 12:32:08 Date Recorded Body mass index (BMI) Body weight Provider Name and Address Organization Details Last Updated DateTime 02/21/2024 44.7 kg/m2 326045.41 g Sweetie Blake MA [facility] 02/21/2024 12:33:30 Date Recorded Heart rate Provider Name an d Address Organization Details Last Updated DateTime 02/21/2024 72 /min Sweetie Blake KARLENE [facility] 12:34:39 Date Recorded Oxygen saturation Oxygen saturation in Arterial blood by Pulse oximetry Provider Name and Address Organization Details Last Updated DateTime 02/21/2024 95 % 95 % Sweetie Blake MA [facility] 02/21/2024 12:34:42 Date Recorded Respiratory rate Provider Name a nd Address Organization Details Last Updated DateTime 02/21/2024 18 /min Sweetie Blake MA [facility] 12:34:50 Date Recorded Systolic blood pressure Diastolic blood pressure Provider Name and Address Organization Details Last Updated DateTime 11/24/2022 116 mm[Hg] 80 mm[Hg] Sweetie Blake MA [facility] 11/24/2022 15:36:39 Date Recorded Systolic blood pressure Diastolic blood pressure Provider Name and Address Organization Details Last Updated DateTime 03/29/2023 124 mm[Hg] 80 mm[Hg] Sweetie Blake MA [facility] 03/29/2023 12:05:05 Date Recorded Systolic blood pressure Diastolic blood pressure Provider Name and Address Organization Details Last Updated DateTime 05/25/2023 130 mm[Hg] 90 mm[Hg] Sweetie [place] [facility] 05/25/2023 11:52:46 Date Recorded Systolic blood pressure Diastolic blood pressure Provider Name and Address Organization Details Last Updated DateTime 07/15/2023 126 mm[Hg] 80 mm[Hg] Sweetie Blake KARLENE [facility] 07/15/2023 12:38:14 Date Recorded Systolic blood pressure Diastolic blood pressure Provider Name and Address Organization Details Last Updated DateTime 02/21/2024 124 mm[Hg] 84 mm[Hg] Sweetie Blake MA [facility] 02/21/2024 12:34:36 Social History Question Answer Notes LastModified by Organizat ion Details LastModified Time Tobacco Smoking Status Current Some Day Smoker Sweetie Blake MA null [facility] 07/15/2023 12:36:29 What Is Your Level Of Alcohol Consumption? Occasional Information not available 10/06/2022 How Many Years Have You Consumed Alcohol? 15 Information not available 03/29/2023 What Is Your Level Of Caffeine Consumption? Moderate Information not available 10/06/2022 What Type Of Diet Are You Following? REGULAR Information not available 10/06/2022 What Was The Date Of Your Most Recent Tobacco Screening? 02/21/2024 Information not available 02/21/2024 What Is Your Current Pack Years? 30ormorepackye ars Information not available 03/29/2023 Do You Use Your Seat Belt Or Car Seat Routinely? Yes Information not available 10/06/2022 At What Age Did You Start Smoking Tobacco? 16 Information not available 03/29/2023 How Much Tobacco Do You Smoke? 1 PPD Information not available 10/06/2022 Do You Use Any Illicit Or Recreational Drugs? No Information not available 10/06/2022 Has Tobacco Cessation Counseling Been Provided? Yes Information not available 10/06/2022 On What Date Was Tobacco Cessation Counseling Provided? 02/21/2024 Information not available 02/21/2024 How Many Years Have You Smoked Tobacco? 35 Information not available 10/06/2022 Do You Or Have You Ever Used Any Other Forms Of Tobacco Or Nicotine? No Information not available 03/29/2023 Sex: Unknown Functional Status None recorded. Mental Status None recorded. Family History Nothing Reported. Medical History Condition Response Coronary Artery Disease N Other Y Atrial Fibrillation N High Blood Pressure Y Kidney or Bladder Problems N Thyroid Problems N GI Problems N Depression N COPD N Blood Clots N Skin Problems N Anemia N Heart Attack ([place]) N Anxiety Disorder Y Diabetes Y Muscle, Joint, or Bone Problems N Seizures/Epilepsy N Acid Reflux (GERD) N Cancer N Stroke N Asthma N Allergies N High Cholesterol Y Hepatitis N Liver Disease N Headaches N Heart Failure N Osteoporosis N Past Encounters Encounter ID Performer Location Encounter Start Date Encounter Closed Date Diagnosis/Indication Diagnosis SNOMED-CT Code Diagnosis ICD10 Code Diagnosis Note [id number] Timbo Gregg MD [facility] ([facility]) [address] [place] [id number] 10/06/2022 13:08:09 10/08/2022 12:20:16 General examination of patient 887332938 Z00.01 Type 2 esha betes mellitus without complication 213828472 E11.9 SARS-CoV-2 vaccination declined 3932963431 Z28.21 History of pneumonia 161 015620 Z87.01 Schizophrenia 28418582 F 20.9 Obstructiv e sleep apnea syndrome 61720219 G47.33 Screening for malignant neoplasm of prostate 347100291 Z12.5 Immunization advised 310 004647 Z71.9 Vaccination declined 893 1962459 Z28.21 Smoker 54910243 F17.200 Chest pain 01762047 R07. 9 [id number] MD [facility] (Adult Med) [address] [place] [id number] 11/24/2022 14:58:11 11/25/2022 12:17:31 Type 2 diabetes mellitus without complication 555607400 E11.9 HBA1C 6.4%Restar t Metformin ER 500 mg Family his tory of malignant neoplasm of lung 935113123 Z80.1 Family his tory of malignant tumor of hypopharynx 3657476491 4358194 Z80.8 Impaired dentition 24053 4008 K03.9 Screening for cancer 158 82214 Z19.1 CXR 2021 (The report is pending)Co lonoscopy 2021 (The report is pending)PS A 09/23/2022 nl [id number] Timbo Gregg MD [facility] (Adult Med) [address] [place] [id number] 03/29/2023 11:31:48 03/30/2023 12:52:06 Type 2 diabetes mellitus without complication 680439207 E11.9 Labs OV 11/24/2022 HBA1C 6.4%Restar t Metformin ER 500 mg Screening for cancer [id number] Z19.1 Colonoscop y 07/09/2021, Q 5 years OV 11/24/2022 CXR 2021 (The report is pending)Co lonoscopy 2021 (The report is pending)PS A 09/23/2022 nl Nicotine dependence 5629 4008 Z87.891 Body mass index 40+ - severely obese 693694842 Z68.41 Obstructiv e sleep apnea syndrome 46110023 G47.33 [id number] MD Serena Sterling (Adult Med) [address] [place] [phone] 05/25/2023 11:43:28 05/26/2023 09:34:07 Benign essential hypertension 8007892 I10 Uncontroll edAdd Losartan 25 mg po daily, side effects were discussedC ontinue Amlodipine and Metoprolol Type 2 esha betes mellitus without complication [id number] E11.9 Labs OV 11/24/2022 HBA1C 6.4%Restar t Metformin ER 500 mg [id number] MD Serena Sterling (Adult Med) [address] [place] [phone] 07/15/2023 12:00:31 07/18/2023 16:43:34 Benign essential hypertension 5112810 I10 Stable OV 05/25/2023Un controlled Add Losartan 25 mg po daily, side effects were discussedC ontinue Amlodipine and Metoprolol Type 2 esha betes mellitus without complication 563797769 E11.9 Labs OV 05/25/2023La bs OV 11/24/2022 HBA1C 6.4%Restar t Metformin ER 500 mg Medication monitoring 39 4929466 Z51.81 Screening for malignant neoplasm of prostate 324097364 Z12.5 Body mass index 40+ - severely obese 883982572 Z68.41 [id number] MD Serena Sterling (Adult Med) [address] [place] [phone] 02/21/2024 12:22:45 02/24/2024 08:11:56 Benign essential hypertension 2725768 I10 StableOV 07/15/2023S table OV 05/25/2023Un controlled Add Losartan 25 mg po daily, side effects were discussedC ontinue Amlodipine and Metoprolol Type 2 esha betes mellitus without complication [id number] E11.9 He has discontinu ed his Metformin on his own. I really don't think I need it, my sugar is okay OV 07/15/2023L abs OV 05/25/2023La bs OV 11/24/2022 HBA1C 6.4%Restar t Metformin ER 500 mg Influenza vaccination declined [id number] Z28.21 Osteoarthritis of hip 23 0756466 M16.9 History of nicotine dependence [id number] 42603305 Z87.891 [place] Tobacco QuitlineHe has failed the Nicotine patch Health Concerns Section Related Observation LastModified by Organization Detai ls LastModified Time None Recorded Concern Status LastModified by Organization Details LastModified Time None Recorded Advance Directives Directive None Recorded Payers Encounter Date Sequence Insurance Name Policy Number Policy Whitaker Covered Member ID Whitaker Member ID Guarantor Name 11/24/2022 2 [place] WHEN [place]ARE OR MEDICARE REPLACEMENT PRIMARY) Arsh Montanez [id number] Arsh Tarik 11/24/2022 1 [facility] (MEDICARE REPLACEMENT/AD VANTAGE - PPO) [id number] Arsh Montanez [id number] Arsh Montanez 03/29/2023 2 [place] MEDICARE REPLACEMENT PRIMARY) Arsh Montanez [id number] Arsh Tarik 03/29/2023 1 [facility] (MEDICARE REPLACEMENT/AD VANTAGE - PPO) [id number] Arsh Montanez [id number] Arsh Montanez 05/25/2023 2 [place] MEDICARE REPLACEMENT PRIMARY) Arsh Montanez [id number] Arsh Tarik 05/25/2023 1 [facility] (MEDICARE REPLACEMENT/AD VANTAGE - PPO) [id number] Arsh Montanez [id number] Arsh Tarik 07/15/2023 2 [place] MEDICARE REPLACEMENT PRIMARY) Arsh Montanez [id number] Arsh Tarik 07/15/2023 1 [facility] (MEDICARE REPLACEMENT/AD VANTAGE - PPO) [id number] Arsh Montanez [id number] Arsh Tarik 02/21/2024 2 [place] OR MEDICARE REPLACEMENT PRIMARY) Arsh Montanez [id number] Arsh Tarik 02/21/2024 1 [facility] (MEDICARE REPLACEMENT/AD VANTAGE - PPO) [id number] Arsh Montanez [id number] Arsh Montanez Notes Date Note Type Note Provider Name and Address Organization Details Recorded Time 11/24/2022 text/html Diabetes F/URepo rted bypatient.Labs:last A1C result: 6.4 Context:taking aspirin daily; not missing doses of medications; no side effects from medications Associated Symptoms:no weight gain; no dizziness; no sweats; no headaches; no confusion; no increased thirst; no increased appetite; no increased urination; no blurred vision; no numbness of feet; no calluses on feet;weight loss (6 lbs) I want to get checked for Cancer It was a white spot, it healed up Mr Tarik brooks, he is unable to get seen by the fitness plan coordinator unless he settles his outstanding bill. He would like to get screened for cancer, he had a lesion on the inner part of the mouth (Lower lip) that has since healed, he has a strong FHX. of cancer and he had A CXR and a colonoscopy last year. Timbo Gregg MD Attn: Accounting,[address], [place], [address], [facility] 11/24/2022 16:43:24 03/29/2023 text/html Diabetes F/URepo rted bypatient.Labs:last A1C result: 6.4 Context:normal range of home blood sugars (in the low 100s); seeing eye doctor regularly; checking feet regularly Associated Symptoms:no weight gain; no weight loss; no dizziness; no sweats; no headaches; no confusion; no increased thirst; no increased appetite; no increased urination; no blurred vision; no numbness of feet; no calluses on feetHypertension F/UReported bypatient.Associated Symptoms:no dizziness; no lightheadedness; no chest pain; no shortness of breath; no palpitations; no edema; no calf pain with exertion Lifestyle:regular exercise; limiting/avoiding salt Medications:taking medications as directed; no side effects from medication It is unclear how reliable a historian he is. Follow up My A1C was 5.8% Dr Dorsey, he said I had cancer but he didn't say where. He also said HIV but it came back negative Mr Tarik brooks, he claims that his PCP mentioned that he had cancer and HIV and later on said that he did not. He has KETAN but never followed up for his repeat tests or CPAP. He has been compliant with his medications and apparently had his eye exam Timbo Gregg MD Attn: Accounting,[address] , [place], [phone], [facility] 03/29/2023 19:30:14 05/25/2023 text/html AnkleReported bypatient.Location:jess ateral (L>R) Quality:aching Severity:moderate; pain level 2/10; worst pain 5/10 Duration:years Timing:chronic Context:cannot identify; I did it in the service, I got tackled playing football Associated Symptoms:no weakness; no numbness; no tingling; no swelling; no redness; no warmth; no ecchymosis; no catching/locking; no popping/clicking; no buckling; no grinding; no instability; no radiation down leg; no drainage; no fever; no chills; no weight loss; no change in bowel/bladder habits Previous Surgery:none Prior Imaging:x ray Previous Injections:none Previous PT:none Work Related:no Working:noDiabetes F/UReported bypatient.Labs:last A1C result: 5.7 Context:taking aspirin daily; not missing doses of medications; no side effects from medications Associated Symptoms:no weight loss; no dizziness; no sweats; no headaches; no confusion; no increased thirst; no increased appetite; no increased urination; no blurred vision; no numbness of feet; no calluses on feet;weight gain (7 lbs)Hypertension F/UReported bypatient.Associated Symptoms:no dizziness; no lightheadedness; no chest pain; no shortness of breath; no palpitations; no edema; no calf pain with exertion Lifestyle:regular exercise; limiting/avoiding salt Medications:taking medications as directed; no side effects from medication; checks blood pressure at home, range: (120/95) I sent you the letter to see if the arthritis in my knees and arthritis......[facility] to see if the problem in my left ankle has caused the other areas to deteriorate? Mr Montanez returns, he is applying for disability based on his chronic bilateral ankle pain. There was an injury to the left ankle while he was serving and the right ankle was sprained. He had seen an orthopedic surgeon at [facility] for this issue and recently requested that I provide a letter, my suggestion was that his records be forwarded. Timbo Gregg MD Attn: Accounting,[address] [place], [address], [place] [facility] 05/25/2023 13:54:31 07/15/2023 text/html Hypertension F/UReported bypatient.Associated Symptoms:no dizziness; no lightheadedness; no chest pain; no shortness of breath; no palpitations; no edema; no calf pain with exertion Lifestyle:regular exercise; limiting/avoiding salt Medications:taking medications as directed; no side effects from medication Not so bad Doing a follow up I am supposed to be doing an evaluation to see if I can get plasma drawn Timbo Gregg MD Attn: Accounting,[address] [facility], [place], [address], [facility] 07/15/2023 14:21:10 02/21/2024 text/html Diabetes F/URepo rted bypatient.Labs:last A1C result: 5.7% (10/05/2023) Context:normal range of home blood sugars (in the low 100s); seeing eye doctor regularly; checking feet regularly; taking aspirin daily; not missing doses of medications; no side effects from medications Associated Symptoms:no weight loss; no dizziness; no sweats; no headaches; no confusion; no increased thirst; no increased appetite; no increased urination; no blurred vision; no numbness of feet; no calluses on feet;weight gain (5 lbs)Medicare Annual Wellness VisitReported bypatient.Diet and Nutrition:healthy diet; discussed vitamin and supplement use Fracture Risk:no history of fractures; no recent explained fracture; no sudden unexplained fractures; no previous musculoskeletal injuries Physical Activity:good physical condition; discussed weightbearing activities; discussed exercise habits Depression Risk:never feels sad, empty, or tearful; no loss of interest in activities; no significant changes in weight; no sleep disturbances or insomnia; no agitation; no loss of energy; no feelings of worthlessness or guilt; no thoughts of suicide; no history of depression;history of mood disorders Orientation:no disorientation to time; no disorientation to date; no disorientation to place Concentration and Memory:no decreased concentrating ability; no memory lapses or loss; does not forget words Hearing:no loss of hearing Vision:worse both distance and near Activities of Daily Living:able to bathe with limited or no assistance; able to contol urination and bowels; able to dress with limited or no assistance; able to feed self with limited or no assistance; able to get out of chair or bed with limited or no assistance; able to groom with limited or no assistance; able to toilet with limited or no assistance Instrumental Activities of Daily Living:able to do house work with limited or no assistance; able to grocery shop with limited or no assistance; able to manage medications with limited or no assistance; able to manage money with limited or no assistance; able to prepare meals with limited or no assistance; able to use the phone with limited or no assistance Falls Risk Assessment:no frequent falls while walking; no fall in the past year; no fall since last visit; no dizziness/vertigo Home Safety:no unsafe david hazzards; no unsafe stairs; no unsafe gas appliances; working smoke/CO detectors; wears protective head gear for biking/high velocity; use of seatbelts; no vision or hearing loss while driving; has hand bars in the bathroom/shower; good lighting in the home No so bad I didn't do that sleep study I was trying to do something with it Mr Montanez had his HBA1C done elsewhere and it was 6.1%, he has stopped his Metformin. He was hoping to have his hip, knee and ankle pain considere service related and was to have some forms completed. 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 Timbo Gregg MD Attn: Accounting,[address] [facility], [place], [address], [facility] 02/21/2024 13:01:21
--- OUTSIDE RECORDS SUMMARY | 2024-06-21 10:06 | XMS_ITS | Patient Health Summary ---
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 This disclosure is being madepursuant to the Care Everywhere program and may not contain all information available regarding this patient. Last updated 18.[facility] Allergies * Lisinopril(Angioedema) -High Criticality Medications * Be aware that medications may not be up to date on this document. Alwaysverify current medications with the patient. * amLODIPine (Norvasc) 10 MG tablet(Started 10/13/2022) Take 1 (one) tablet by mouth once daily * haloperidol (Haldol) 10 MG tablet(Started 10/20/2022) Take 1 (one) tablet by mouth 2 times daily * hydrOXYzine HCl (Atarax) 25 MG tablet(Started 10/12/2022) Take 1 (one) tablet by mouth as directed * benztropine (Cogentin) 1 MG tablet(Started 10/12/2022) Take 1 (one) tablet by mouth as directed * atorvastatin (Lipitor) 40 MG tablet(Started 09/28/2022) Take 1 (one) tablet by mouth at bedtime * metoprolol tartrate IR (Lopressor) 50 MG tablet(Started 09/29/2022) Take 1 (one) tablet by mouth 2 times daily * risperiDONE (RisperDAL) 4 MG tablet(Started 10/08/2022) Take 1 (one) tablet by mouth 2 times daily * traZODone (Desyrel) 150 MG tablet(Started 10/12/2022) Take 2 (two) tablets by mouth nightly as needed for Insomnia * Multiple Vitamin (Multi-Vitamin Daily) TABS Ended Medications* haloperidol decanoate (Haldol Decanoate) 100 MG/ML injection (Started 10/12/2022)(Discontinued) Inject 1 mL into muscle as directed * haloperidol decanoate (Haldol Decanoate) 50 MG/ML injection(Started 10/12/2022) (Discontinued) Inject 1 mL into muscle as directed * Fish Oil-Cholecalciferol ([place]-3 Fish Oil/Vitamin D3) 8481-9815 MG-UNIT CAPS (Discontinued) Take 1,000 mg by mouth once daily * Cyanocobalamin 500 MCG(Discontinued) Dissolve 500 mcg under the tongue once daily * Cholecalciferol 50 MCG (2000 UT)(Discontinued) Take 2,000 Units by mouth once daily * aspirin EC (Ecotrin) 81 MG tablet(Discontinued) Take 1 (one) tablet by mouth once daily * Ascorbic Acid 500 MG(Discontinued) Take 500 mg by mouth once daily Active Problems Problem Noted Date Diagnosed Date Arterial hypotension 10/21/2022 10/21/2022 Arthralgia 10/21/2022 10/21/2022 Undifferentiated schizophrenia 10/21/2022 0 10/21/2022 Schizophrenia, unspecified 10/21/202210/21 Psychotic disorder 10/21/2022 10/21/2022 Schizophrenia 10/21/2022 10/21/2022 Hypersomnia with sleep apnea 10/21/202205/2022 Obesity 10/21/2022 10/21/2022 Tobacco user 10/21/2022 10/21/2022 Type 2 diabetes mellitus without complication 10/21/2022 Bipolar disorder with depression 11/18/2021 10/21/2022 Mixed hyperlipidemia 11/18/2021 10/21/2022 Morbid obesity with BMI of 40.0-44.9, adult 10/2210/21/2022 Other senior living (current) drug therapy 10/21/2022 Microalbuminuria 08/26/2021 10/21/2022 Exposure to SARS-associated coronavirus 08/12/19 22 10/21/2022 Diastolic dysfunction 11/26/2020 10/21/2022 B12 deficiency 09/25/2020 10/21/2022 Chest pain, atypical 09/25/2020 10/21/2022 Chronic schizophrenia 09/25/2020 10/21/2022 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 0 10/21/2022 Encounter for health-related screening 10/21/2022 Hypertension, essential 09/25/2020 10/22/19 23 Other and unspecified hyperlipidemia 09/25/2020 10/21/2022 Obesity 09/25/2020 10/21/2022 Sleep apnea 09/25/2020 10/21/2022 Vitamin D deficiency 09/25/2020 10/21/2022 Tobacco use disorder, continuous 09/25/2020 10/21/2022 Other specified postprocedural states 01/07/2015 History of tracheostomy 01/07/2015 10/22/19 23 Immunizations * FLU VACCINE TRI IIV3 SPLIT PF IM (FLUVIRIN)(Given 06/21/2014) * HEP A/HEP B(Given 08/20/2013, 10/09/2010, 05/25/2010) * INFLUENZA VACCINE(Given 07/20/2012, 06/03/2011) * PNEUMOCOCCAL PPV VACCINE(Given 07/20/2012) * TDAP (7yrs+)(Given 02/23/2010) Social History Tobacco Use Types Packs/Day Years Used Date Smoking Tobacco: Light Smoker Smokeless Tobacco: Never Tobacco Cessation:Ready to Q uit: Not Asked; Counseling Given: Not Answered Alcohol Use Standard Drinks/Week Comments No 0 (1 standard drink = 0.6 oz pur e alcohol) PHQ-2 Answer Date Recorded Patient Health Questionnaire-2 Score 2 06/13/2024 Sex and Gender Information Value Date Recorded Sex Assigned at Not on file Gender Identity Not on file Sexual Orientation Not on file Last Filed Vital Signs Vital Sign Reading Time Taken Comments Blood Pressure 124/80 06/13/2024 1:11 PM [employer]CHO[employer] TE[employer] Pulse 70 06/13/2024 1:11 PM [employer] Temperature 36.1 ??C (97 ??F) 06/13/2024 1:11 PM [employer] Respiratory Rate 16 06/13/2024 1:11 PM [employer] Oxygen Saturation 95% 06/13/2024 1:11 PM [employer] Inhaled Oxygen Concentration - - Weight 129.3 kg (285 lb) 06/13/2024 1:11 PM [employer] Height 175.3 cm (5' 9 ) 06/13/2024 1:11 PM [employer] Body Mass Index 42.09 06/13/2024 1:11 PM [employer] Procedures * XR PELVIS W BILAT HIP 1VW(Performed 06/13/2024) Performed for Chronic left hip pain * XR KNEE BILAT 2VW OR LESS(Performed 06/13/2024) Performed for Chronic pain of left knee * XR LUMBAR SPINE 4VW OR MORE(Performed 06/13/2024) Performed for Chronic midline low back pain without sciatica * ERYTHROCYTE SEDIMENTATION RATE(Performed 06/13/2024) Performed for Polyarthralgia * LUPUS ANTICOAGULANT PANEL W RFLX(Performed 06/13/2024) Performed for Positive TRE (antinuclear antibody) * CARDIOLIPIN ANTIBODY IGA/IGG/IGM PANEL(Performed 06/13/2024) Performed for Positive TRE (antinuclear antibody) * TRE PANEL COMPREHENSIVE(Performed 06/13/2024) Performed for Positive TRE (antinuclear antibody) * TRE BLOOD SCREEN W/REFLEX TITER(Performed 06/13/2024) Performed for Positive RTE (antinuclear antibody) * RIBOSOMAL P PROTEIN ANTIBODY(Performed 06/13/2024) Performed for Positive TRE (antinuclear antibody) * COMPLEMENT C3 C4 PANEL(Performed 06/13/2024) Performed for Positive TRE (antinuclear antibody) * XR KNEE LEFT 4VW OR MORE(Performed 10/05/2023) Performed for Bilateral hip pain * XR KNEE RIGHT 4VW OR MORE(Performed 10/05/2023) Performed for Bilateral hip pain * XR HIP LEFT 2VW OR MORE(Performed 10/05/2023) Performed for Bilateral hip pain * XR PELVIS W RIGHT HIP 2VW(Performed 10/05/2023) Performed for Bilateral hip pain * XR FOOT RIGHT WT BEARING 3VW(Performed 10/05/2023) Performed for Orthopedic aftercare * XR FOOT LEFT WT BEARING 3VW(Performed 10/05/2023) Performed for Orthopedic aftercare * XR FOOT LEFT WT BEARING 3VW(Performed 10/21/2022) Performed for Arthralgia of both ankles * XR FOOT RIGHT WT BEARING 3VW(Performed 10/21/2022) Performed for Arthralgia of both ankles * XR ANKLE LEFT 3VW OR MORE(Performed 10/21/2022) Performed for Arthralgia of both ankles * XR ANKLE RIGHT 3VW OR MORE(Performed 10/21/2022) Performed for Arthralgia of both ankles * LAB MICROBIOLOGY - HPF HISTORICAL(Performed 07/09/2011) * LAB MICROBIOLOGY - HPF HISTORICAL(Performed 07/08/2011) Results * XR Pelvis W Bilat Hip 1Vw (06/13/2024 3:34 PM H[employer]) Anatomical Region Laterality Modality Pelvis Radiographic Marissa ging 06/13/2024 5:09 PM H[employer] TE[employer]ER Impressions 06/13/2024 5:12 PM [employer] TE[employer]ER IMPRESSION: 1. ??No significant hip findings. 2. 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 Indication: M25.552: Pain in left hip G89.29: Other chronic pain Additional History: COMPARISON: None. Findings: The femoral acetabular joint spaces are symmetric and preserved. ??There are small bilateral acetabular spurs. ??Pubic symphysis and sacroiliac joints are unremarkable. ??Incidentally noted are bilateral articulations between the L5 transverse processes and the sacrum raising the possibility of Bertolotti syndrome, in the appropriate clinical scenario. Procedure Note Sarah Mchugh MD - 06/13/2024 PROCEDURE: XR PELVIS W BILAT HIP 1VW DATE/TIME OF EXAM: 06/13/2024 3:35 PM CLINICAL INFORMATION: None relevant/not provided if blank. Indication: M25.552: Pain in left hip G89.29: Other chronic pain Additional History: COMPARISON: None. Findings: The femoral acetabular joint spaces are symmetric and preserved. Thereare small bilateral acetabular spurs. Pubic symphysis and sacroiliac joints are unremarkable. Incidentally noted are bilateral articulationsbetween the L5 transverse processes and the sacrum raising the possibility of Bertolotti syndrome, in the appropriate clinical scenario. IMPRESSION: 1. No significant hip findings. 2. 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 ??No acute findings. 2. ??Mild bilateral knee primary osteoarthritis > Interpreting Provider: Sarah Mchugh MD on 06/13/2024 5:13 PM Narrative 06/13/2024 5:13 PM H[employer] S[employer] BUSINESS TE[employer]ER PROCEDURE: ??XR KNEE BILAT 2VW OR LESS DATE/TIME OF EXAM: ??06/13/2024 3:35 PM CLINICAL INFORMATION: None relevant/not provided if blank. Indication: M25.562: Pain in left knee G89.29: Other chronic pain Additional History: COMPARISON: None. FINDINGS: Findings: In both knees there is slight narrowing of the medial compartment suggesting some degree of cartilage loss. ??The remaining knee compartments are unremarkable and there is no fracture or joint effusion. Procedure Note Sarah Mchugh MD - 06/13/2024 PROCEDURE: XR KNEE BILAT 2VW OR LESS DATE/TIME OF EXAM: 06/13/2024 3:35 PM CLINICAL INFORMATION: None relevant/not provided if blank. Indication: M25.562: Pain in left knee G89.29: Other chronic pain Additional History: COMPARISON: None. FINDINGS: Findings: In both knees there is slight narrowing of the medial compartment suggesting some degree of cartilage loss. The remaining kneecompartments are unremarkable and there is no fracture or joint effusion. IMPRESSION: 1. No acute findings. 2. Mild bilateral knee primary osteoarthritis > Interpreting Provider: Sarah Mchugh MD on 06/13/2024 5:13 PM Panchito Finnegan DO DIAGNOSTIC IMAGING O RDERABLES * XR Lumbar Spine 4Vw or More (06/13/2024 3:34 PM H[employer] TE[employer]ER) Anatomical Region Laterality Modality Spine Radiographic Marissa ging 06/13/2024 5:08 PM H[employer] TE[employer]ER Impressions 06/13/2024 5:09 PM [employer] TE[employer]ER IMPRESSION: 1. ??L3-L4 grade 1-2 degenerative subluxation > Interpreting Provider: Sarah Mchugh MD on 06/13/2024 5:09 PM Narrative 06/13/2024 5:09 PM [employer] TE[employer]ER PROCEDURE: ??XR LUMBAR SPINE 4VW OR MORE DATE/TIME OF EXAM: ??06/13/2024 3:35 PM CLINICAL INFORMATION: None relevant/not provided if blank. Indication: M54.50: Low back pain, unspecified G89.29: Other chronic pain Additional History: COMPARISON: None. Findings: At L3-L4 there is 9 mm of grade 1-2 anterior subluxation of L3 relative to L4 due to chronic facet arthropathy. ??Facet hypertrophy is noted between L2 and S1. ??There is no fracture and interspace heights are preserved. Sacroiliac joints are unremarkable. Procedure Note Sarah Mchugh MD - 06/13/2024 PROCEDURE: XR LUMBAR SPINE 4VW OR MORE DATE/TIME OF EXAM: 06/13/2024 3:35 PM CLINICAL INFORMATION: None relevant/not provided if blank. Indication: M54.50: Low back pain, unspecified G89.29: Other chronic pain Additional History: COMPARISON: None. Findings: At L3-L4 there is 9 mm of grade 1-2 anterior subluxation of L3 relativeto L4 due to chronic facet arthropathy. Facet hypertrophy is noted betweenL2 and S1. There is no fracture and interspace heights are preserved. Sacroiliac joints are unremarkable. IMPRESSION: 1. L3-L4 grade 1-2 degenerative subluxation > Interpreting Provider: Sarah Mchugh MD on 06/13/2024 5:09 PM Panchito Finnegan DO DIAGNOSTIC IMAGING O RDERABLES * CARDIOLIPIN ANTIBODY IGA/IGG/IGM PANEL (06/13/2024 2:38 PM [employer]) Cardiolipin Antibody IgG <9 0 - 14 GPL U/mL [facility] ACCOUNT BILL Comment: ?Negative: ?<15 ?Indeterminate: ? 15 - 20 ?Low-Med Positive: >20 - 80 ?High Positive: ? >80 Cardiolipin Antibody IgM <9 0 - 12 MPL U/mL [facility] ACCOUNT BILL Comment: ?Negative: ?<13 ?Indeterminate: ? 13 - 20 ?Low-Med Positive: >20 - 80 ?High Positive: ? >80 Cardiolipin Antibody IgA <9 0 - 11 APL U/mL [facility] ACCOUNT BILL Comment: ?Negative: ?<12 ?Indeterminate: ? 12 - 20 ?Low-Med Positive: >20 - 80 ?High Positive: ? >80 Blood BLOOD SPECIMEN / Unknown 06/13/2024 2:38 PM H[employer] TE[employer]ER 06/13/2024 Narrative [facility] ACCOUNT BILL - 06/14/2024 5:07 PM H[employer] TE[employer]ER Performed at: ??01 - [facility] [address] [place], [place] ??[id number] Maintenance Mechanic Engine: Tacho Shoemaker PhD, Phone: ??[phone] Panchito Finnegan DO LAB - SEROLOGY ORDER EVI [facility] ACCOUNT BILL [address] [place] [address] * TRE PANEL COMPREHENSIVE (06/13/2024 2:38 PM H[employer] TE[employer]ER) Anti-dsDNA Quantitative <1 0 - 9 IU/mL [facility] ACCOUNT BILL Comment: ? Negative ?<5 ? Equivocal ??5 - 9 ? Positive ?>9 CASER IN Antibody <0.2 0.0 - 0.9 AI [facility] ACCOUNT BILL Melo (DOMENICO) Antibody <0.2 0.0 - 0.9 AI [facility] ACCOUNT BILL Antiscleroderma-70 Antibody 0.2 0.0 - 0.9 AI [facility] ACCOUNT BILL Sjogren's Antibodies (SSA) <0.2 0.0 - 0.9 AI [facility] ACCOUNT BILL Sjogren's Antibodies (SSB) <0.2 0.0 - 0.9 AI [facility] ACCOUNT BILL Antichromatin Antibodies <0.2 0.0 - 0.9 AI [facility] ACCOUNT BILL Josefina-1 Antibody <0.2 0.0 - 0.9 AI [facility] ACCOUNT BILL Centromere B Antibody <0.2 0.0 - 0.9 AI [facility] ACCOUNT BILL See Below Comment [facility] ACCOUNT BILL Comment: Autoantibody ? Disease Association ?Condition ?Frequency ? --------- Antinuclear Antibody, ?SLE, mixed connective Direct (TRE-D) ? tissue diseases ? --------- dsDNA ?SLE ?40 - 60% ? --------- Chromatin ?Drug induced SLE ?90% ? SLE ?48 - 97% ? --------- SSA (Ro) ? SLE ?25 - 35% ? Sjogren's Syndrome ? 40 - 70% ? Lupus ? 100% ? --------- SSB (La) ? SLE ? 10% ? Sjogren's Syndrome ?30% ?--------- Sm (anti-Melo) ?SLE ?15 - 30% ?--------- CASER IN ?Mixed Connective Tissue ? Disease ? 95% (U1 nRNP, ?SLE ?30 - 50% anti-ribonucleoprotein) ??Polymyositis and/or ? Dermatomyositis ? 20% ? --------- Scl-70 (antiDNA ?Scleroderma (diffuse) ?20 - 35% topoisomerase) ? Crest ? 13% ? --------- Josefina-1 ? Polymyositis and/or ? Dermatomyositis ?20 - 40% ? --------- Centromere B ? Scleroderma - Crest ? variant ? 80% Blood BLOOD SPECIMEN / Unknown 06/13/2024 2:38 PM H[employer]ER 06/13/2024 Narrative [facility] ACCOUNT BILL - 06/14/2024 3:08 PM [employer] Performed at: ??01 - [facility] [address], [place], [place] ??[id number] Maintenance Mechanic Engine: Tacho Shoemaker PhD, Phone: ??[phone] Panchito Finnegan DO LAB - SEROLOGY ORDER EVI Performing Organization Address City/State/[facility] Co de Phone Number [facility] ACCOUNT BILL [address] [place] [address] * LUPUS ANTICOAGULANT PANEL W RFLX (06/13/2024 2:38 PM [employer]) PTT-LA 37.3 0.0 - 43.5 sec [facility] ACCOUNT BILL dRVVT 30.7 0.0 - 47.0 sec [facility] ACCOUNT BILL Interpretation Comment: [facility] ACCOUNT BILL Comment:No lupus anticoagula nt was detected. Blood BLOOD SPECIMEN / Unknown 06/13/2024 2:38 PM [employer]ER 06/13/2024 Narrative [facility] ACCOUNT BILL - 06/14/2024 7:07 PM [employer]ER Performed at: ??01 - [facility] [address] ??[id number] Maintenance Mechanic Engine: Jorge Romero MD, Phone: ??[phone] Panchito Finnegan DO LAB - HEMATOLOGY ORD ERICA Performing Organization Address [facility] de Phone Number [facility] ACCOUNT BILL [address] [place] [address] * TRE BLOOD SCREEN W/REFLEX TITER (06/13/2024 2:38 PM [employer]) TRE Negative [facility] ACCOUNT BILL Comment: ? Negative ?? <1:80 ? Borderline ??1:80 ? Positive ?? >1:80 ICAP nomenclature: AC-0 For more information about Hep-2 cell patterns use ANApatterns.org, the official website for the International Consensus on Antinuclear Antibody (TRE) Patterns (ICAP). Blood BLOOD SPECIMEN / Unknown 06/13/2024 2:38 PM H[employer] TE[employer]ER 06/13/2024 Narrative [facility] ACCOUNT BILL - 06/15/2024 7:07 PM H[employer]ER Performed at: ??01 - [facility] [address] ??[id number] Maintenance Mechanic Engine: Tacho Shoemaker PhD, Phone: ??[phone] Panchito Finnegan DO LAB - CHEMISTRY BECKI BUTT Performing Organization Address [facility] Co de Phone Number [facility] ACCOUNT BILL [address] [place] [address] * (ABNORMAL) SED RATE AUTO (ESR) (06/13/2024 2:38 PM [employer]) Erythrocyte Sedimentation Rate Westergren 44(H) 0 - 30 mm/hr [facility] ACCOUNT BILL Blood BLOOD SPECIMEN / Unknown 06/13/2024 2:38 PM [employer]ER 06/13/2024 Narrative [facility] ACCOUNT BILL - 06/14/2024 7:09 AM [employer]ER Performed at: ??01 - [facility] [address] ??[id number] Maintenance Mechanic Engine: Tacho Shoemaker PhD, Phone: ??[phone] Panchito Finnegan DO LAB - HEMATOLOGY ORD ERABLES [facility] ACCOUNT BILL [address] [place] [address] * RIBOSOMAL P PROTEIN ANTIBODY (06/13/2024 2:37 PM [employer]) Antiribosomal P Antibody <0.2 0.0 - 0.9 AI [facility] ACCOUNT BILL Blood BLOOD SPECIMEN / Unknown 06/13/2024 2:37 PM [employer]ER 06/13/2024 Narrative [facility] ACCOUNT BILL - 06/14/2024 1:08 PM [employer]ER Performed at: ??01 - [facility] [address] ??[id number] Maintenance Mechanic Engine: Tacho Shoemaker PhD, Phone: ??[phone] Panchito Finnegan DO LAB - CHEMISTRY ORDE RABLES Performing Organization Address [facility] de Phone Number [facility] ACCOUNT BILL [address] [place] [address] * (ABNORMAL) COMPLEMENT C3 C4 PANEL (06/13/2024 2:37 PM [employer]) Complement C3 178(H) 82 - 167 mg/dL [facility] ACCOUNT BILL Complement C4 41(H) 12 - 38 mg/dL [facility] ACCOUNT BILL Blood BLOOD SPECIMEN / Unknown 06/13/2024 2:37 PM [employer]ER 06/13/2024 Narrative [facility] ACCOUNT BILL - 06/14/2024 1:08 PM [employer] TE[employer]ER Performed at: ??01 - [facility] [address] ??[id number] Maintenance Mechanic Engine: Tacho Shoemaker PhD, Phone: ??[phone] Panchito Finnegan DO LAB - CHEMISTRY BECKI [place] Organization Address City/State/ZIP Co de Phone Number [facility] [place] [address] * XR FOOT RIGHT WT BEARING 3VW (10/05/2023 2:07 PM CDT) Only the most recent of2 resultswithin the time period is included. Anatomical Region Laterality Modality Ankle / Foot Radiographic Marissa ging 10/05/2023 2:10 PM CDT Impressions 10/05/2023 2:14 PM CDT IMPRESSION: No acute osseous abnormality. > Interpreting Provider: Aleks Cabral MD on 10/05/2023 2:14 PM Narrative 10/05/2023 2:14 PM CDT PROCEDURE: ??XR FOOT RIGHT WT BEARING 3VW, XR KNEE LEFT 4VW OR MORE, XR KNEE RIGHT 4VW OR MORE, XR HIP LEFT 2VW OR MORE, XR PELVIS W RIGHT HIP 2VW, XR FOOT LEFT WT BEARING 3VW DATE/TIME OF EXAM: ??10/05/2023 2:07 PM CLINICAL INFORMATION: None relevant/not provided if blank. Indication: Z47.89: Orthopedic aftercare Additional History: COMPARISON: Left foot x-rays dated 10/21/2022. FINDINGS: Right hip: There is no fracture or dislocation. The joint space is normal. A subchondral cyst is suspected in the superior acetabulum. There is a small femoral head osteophyte. There is a transitional vertebra at the lumbosacral junction. Left hip: There is no fracture or dislocation. The joint space is normal. Subchondral cysts are suspected in the superior acetabulum. There is a small femoral head osteophyte. Right knee: No acute fracture or dislocation is present. The joint spaces are normal. No erosions are seen. There is no effusion. ?? There are subchondral cysts in the lateral facet of the trochlea. There is a small lateral patellar osteophyte. Left knee: No acute fracture or dislocation is present. The joint spaces are normal. No erosions are seen. There is no effusion. Right foot: No fracture or dislocation is present. The joint spaces are normal. There is a dorsal talar neck spur. The soft tissues are normal. Left foot: No fracture or dislocation is present. The joint spaces are normal. There are small osteophytes at the first metatarsophalangeal joint. The soft tissues are normal. Procedure Note Aleks Cabral MD - 10/05/2023 PROCEDURE: XR FOOT RIGHT WT BEARING 3VW, XR KNEE LEFT 4VW OR MORE, XRKNEE RIGHT 4VW OR MORE, XR HIP LEFT 2VW OR MORE, XR PELVIS W RIGHT HIP 2VW,XR FOOT LEFT WT BEARING 3VW DATE/TIME OF EXAM: 10/05/2023 2:07 PM CLINICAL INFORMATION: None relevant/not provided if blank. Indication: Z47.89: Orthopedic aftercare Additional History: COMPARISON: Left foot x-rays dated 10/21/2022. FINDINGS: Right hip: There is no fracture or dislocation. The joint space is normal. A subchondral cyst is suspected in the superior acetabulum. There is asmall femoral head osteophyte. There is a transitional vertebra at the lumbosacral junction. Left hip: There is no fracture or dislocation. The joint space is normal.Subchondral cysts are suspected in the superior acetabulum. There is a small femoral head osteophyte. Right knee: No acute fracture or dislocation is present. The joint spaces arenormal. No erosions are seen. There is no effusion. There are subchondralcysts in the lateral facet of the trochlea. There is a small lateral patellar osteophyte. Left knee: No acute fracture or dislocation is present. The joint spaces arenormal. No erosions are seen. There is no effusion. Right foot: No fracture or dislocation is present. The joint spaces are normal.There is a dorsal talar neck spur. The soft tissues are normal. Left foot: No fracture or dislocation is present. The joint spaces are normal.There are small osteophytes at the first metatarsophalangeal joint. The soft tissues are normal. IMPRESSION: No acute osseous abnormality. > Interpreting Provider: Aleks Cabral MD on 10/05/2023 2:14 PM Fabrizio Ernst MD DIAGNOSTIC IMAGING O RDERABLES * XR PELVIS W RIGHT HIP 2VW (10/05/2023 2:07 PM CDT) Anatomical Region Laterality Modality Pelvis Radiographic Marissa ging 10/05/2023 2:10 PM CDT Impressions 10/05/2023 2:14 PM CDT IMPRESSION: No acute osseous abnormality. > Interpreting Provider: Aleks Cabral MD on 10/05/2023 2:14 PM Narrative 10/05/2023 2:14 PM CDT PROCEDURE: ??XR FOOT RIGHT WT BEARING 3VW, XR KNEE LEFT 4VW OR MORE, XR KNEE RIGHT 4VW OR MORE, XR HIP LEFT 2VW OR MORE, XR PELVIS W RIGHT HIP 2VW, XR FOOT LEFT WT BEARING 3VW DATE/TIME OF EXAM: ??10/05/2023 2:07 PM CLINICAL INFORMATION: None relevant/not provided if blank. Indication: Z47.89: Orthopedic aftercare Additional History: COMPARISON: Left foot x-rays dated 10/21/2022. FINDINGS: Right hip: There is no fracture or dislocation. The joint space is normal. A subchondral cyst is suspected in the superior acetabulum. There is a small femoral head osteophyte. There is a transitional vertebra at the lumbosacral junction. Left hip: There is no fracture or dislocation. The joint space is normal. Subchondral cysts are suspected in the superior acetabulum. There is a small femoral head osteophyte. Right knee: No acute fracture or dislocation is present. The joint spaces are normal. No erosions are seen. There is no effusion. ?? There are subchondral cysts in the lateral facet of the trochlea. There is a small lateral patellar osteophyte. Left knee: No acute fracture or dislocation is present. The joint spaces are normal. No erosions are seen. There is no effusion. Right foot: No fracture or dislocation is present. The joint spaces are normal. There is a dorsal talar neck spur. The soft tissues are normal. Left foot: No fracture or dislocation is present. The joint spaces are normal. There are small osteophytes at the first metatarsophalangeal joint. The soft tissues are normal. Procedure Note Aleks Cabral MD - 10/05/2023 PROCEDURE: XR FOOT RIGHT WT BEARING 3VW, XR KNEE LEFT 4VW OR MORE, XRKNEE RIGHT 4VW OR MORE, XR HIP LEFT 2VW OR MORE, XR PELVIS W RIGHT HIP 2VW,XR FOOT LEFT WT BEARING 3VW DATE/TIME OF EXAM: 10/05/2023 2:07 PM CLINICAL INFORMATION: None relevant/not provided if blank. Indication: Z47.89: Orthopedic aftercare Additional History: COMPARISON: Left foot x-rays dated 10/21/2022. FINDINGS: Right hip: There is no fracture or dislocation. The joint space is normal. A subchondral cyst is suspected in the superior acetabulum. There is asmall femoral head osteophyte. There is a transitional vertebra at the lumbosacral junction. Left hip: There is no fracture or dislocation. The joint space is normal.Subchondral cysts are suspected in the superior acetabulum. There is a small femoral head osteophyte. Right knee: No acute fracture or dislocation is present. The joint spaces arenormal. No erosions are seen. There is no effusion. There are subchondralcysts in the lateral facet of the trochlea. There is a small lateral patellar osteophyte. Left knee: No acute fracture or dislocation is present. The joint spaces arenormal. No erosions are seen. There is no effusion. Right foot: No fracture or dislocation is present. The joint spaces are normal.There is a dorsal talar neck spur. The soft tissues are normal. Left foot: No fracture or dislocation is present. The joint spaces are normal.There are small osteophytes at the first metatarsophalangeal joint. The soft tissues are normal. IMPRESSION: No acute osseous abnormality. > Interpreting Provider: Aleks Cabral MD on 10/05/2023 2:14 PM Fabrizio Ernst MD DIAGNOSTIC IMAGING O RDERABLES * XR KNEE RIGHT 4VW OR MORE (10/05/2023 2:07 PM CDT) Anatomical Region Laterality Modality Lower Extremity Radiographic Marissa ging 10/05/2023 2:10 PM CDT Impressions 10/05/2023 2:14 PM CDT IMPRESSION: No acute osseous abnormality. > Interpreting Provider: Aleks Cabral MD on 10/05/2023 2:14 PM Narrative 10/05/2023 2:14 PM CDT PROCEDURE: ??XR FOOT RIGHT WT BEARING 3VW, XR KNEE LEFT 4VW OR MORE, XR KNEE RIGHT 4VW OR MORE, XR HIP LEFT 2VW OR MORE, XR PELVIS W RIGHT HIP 2VW, XR FOOT LEFT WT BEARING 3VW DATE/TIME OF EXAM: ??10/05/2023 2:07 PM CLINICAL INFORMATION: None relevant/not provided if blank. Indication: Z47.89: Orthopedic aftercare Additional History: COMPARISON: Left foot x-rays dated 10/21/2022. FINDINGS: Right hip: There is no fracture or dislocation. The joint space is normal. A subchondral cyst is suspected in the superior acetabulum. There is a small femoral head osteophyte. There is a transitional vertebra at the lumbosacral junction. Left hip: There is no fracture or dislocation. The joint space is normal. Subchondral cysts are suspected in the superior acetabulum. There is a small femoral head osteophyte. Right knee: No acute fracture or dislocation is present. The joint spaces are normal. No erosions are seen. There is no effusion. ?? There are subchondral cysts in the lateral facet of the trochlea. There is a small lateral patellar osteophyte. Left knee: No acute fracture or dislocation is present. The joint spaces are normal. No erosions are seen. There is no effusion. Right foot: No fracture or dislocation is present. The joint spaces are normal. There is a dorsal talar neck spur. The soft tissues are normal. Left foot: No fracture or dislocation is present. The joint spaces are normal. There are small osteophytes at the first metatarsophalangeal joint. The soft tissues are normal. Procedure Note Aleks Cabral MD - 10/05/2023 PROCEDURE: XR FOOT RIGHT WT BEARING 3VW, XR KNEE LEFT 4VW OR MORE, XRKNEE RIGHT 4VW OR MORE, XR HIP LEFT 2VW OR MORE, XR PELVIS W RIGHT HIP 2VW,XR FOOT LEFT WT BEARING 3VW DATE/TIME OF EXAM: 10/05/2023 2:07 PM CLINICAL INFORMATION: None relevant/not provided if blank. Indication: Z47.89: Orthopedic aftercare Additional History: COMPARISON: Left foot x-rays dated 10/21/2022. FINDINGS: Right hip: There is no fracture or dislocation. The joint space is normal. A subchondral cyst is suspected in the superior acetabulum. There is asmall femoral head osteophyte. There is a transitional vertebra at the lumbosacral junction. Left hip: There is no fracture or dislocation. The joint space is normal.Subchondral cysts are suspected in the superior acetabulum. There is a small femoral head osteophyte. Right knee: No acute fracture or dislocation is present. The joint spaces arenormal. No erosions are seen. There is no effusion. There are subchondralcysts in the lateral facet of the trochlea. There is a small lateral patellar osteophyte. Left knee: No acute fracture or dislocation is present. The joint spaces arenormal. No erosions are seen. There is no effusion. Right foot: No fracture or dislocation is present. The joint spaces are normal.There is a dorsal talar neck spur. The soft tissues are normal. Left foot: No fracture or dislocation is present. The joint spaces are normal.There are small osteophytes at the first metatarsophalangeal joint. The soft tissues are normal. IMPRESSION: No acute osseous abnormality. > Interpreting Provider: Aleks Cabral MD on 10/05/2023 2:14 PM Fabrizio Ernst MD DIAGNOSTIC IMAGING O RDERABLES * XR KNEE LEFT 4VW OR MORE (10/05/2023 2:07 PM CDT) Anatomical Region Laterality Modality Lower Extremity Radiographic Marissa ging 10/05/2023 2:10 PM CDT Impressions 10/05/2023 2:14 PM CDT IMPRESSION: No acute osseous abnormality. > Interpreting Provider: Aleks Cabral MD on 10/05/2023 2:14 PM Narrative 10/05/2023 2:14 PM CDT PROCEDURE: ??XR FOOT RIGHT WT BEARING 3VW, XR KNEE LEFT 4VW OR MORE, XR KNEE RIGHT 4VW OR MORE, XR HIP LEFT 2VW OR MORE, XR PELVIS W RIGHT HIP 2VW, XR FOOT LEFT WT BEARING 3VW DATE/TIME OF EXAM: ??10/05/2023 2:07 PM CLINICAL INFORMATION: None relevant/not provided if blank. Indication: Z47.89: Orthopedic aftercare Additional History: COMPARISON: Left foot x-rays dated 10/21/2022. FINDINGS: Right hip: There is no fracture or dislocation. The joint space is normal. A subchondral cyst is suspected in the superior acetabulum. There is a small femoral head osteophyte. There is a transitional vertebra at the lumbosacral junction. Left hip: There is no fracture or dislocation. The joint space is normal. Subchondral cysts are suspected in the superior acetabulum. There is a small femoral head osteophyte. Right knee: No acute fracture or dislocation is present. The joint spaces are normal. No erosions are seen. There is no effusion. ?? There are subchondral cysts in the lateral facet of the trochlea. There is a small lateral patellar osteophyte. Left knee: No acute fracture or dislocation is present. The joint spaces are normal. No erosions are seen. There is no effusion. Right foot: No fracture or dislocation is present. The joint spaces are normal. There is a dorsal talar neck spur. The soft tissues are normal. Left foot: No fracture or dislocation is present. The joint spaces are normal. There are small osteophytes at the first metatarsophalangeal joint. The soft tissues are normal. Procedure Note Aleks Cabral MD - 10/05/2023 PROCEDURE: XR FOOT RIGHT WT BEARING 3VW, XR KNEE LEFT 4VW OR MORE, XRKNEE RIGHT 4VW OR MORE, XR HIP LEFT 2VW OR MORE, XR PELVIS W RIGHT HIP 2VW,XR FOOT LEFT WT BEARING 3VW DATE/TIME OF EXAM: 10/05/2023 2:07 PM CLINICAL INFORMATION: None relevant/not provided if blank. Indication: Z47.89: Orthopedic aftercare Additional History: COMPARISON: Left foot x-rays dated 10/21/2022. FINDINGS: Right hip: There is no fracture or dislocation. The joint space is normal. A subchondral cyst is suspected in the superior acetabulum. There is asmall femoral head osteophyte. There is a transitional vertebra at the lumbosacral junction. Left hip: There is no fracture or dislocation. The joint space is normal.Subchondral cysts are suspected in the superior acetabulum. There is a small femoral head osteophyte. Right knee: No acute fracture or dislocation is present. The joint spaces arenormal. No erosions are seen. There is no effusion. There are subchondralcysts in the lateral facet of the trochlea. There is a small lateral patellar osteophyte. Left knee: No acute fracture or dislocation is present. The joint spaces arenormal. No erosions are seen. There is no effusion. Right foot: No fracture or dislocation is present. The joint spaces are normal.There is a dorsal talar neck spur. The soft tissues are normal. Left foot: No fracture or dislocation is present. The joint spaces are normal.There are small osteophytes at the first metatarsophalangeal joint. The soft tissues are normal. IMPRESSION: No acute osseous abnormality. > Interpreting Provider: Aleks Cabral MD on 10/05/2023 2:14 PM Fabrizio Ernst MD DIAGNOSTIC IMAGING O RDERABLES * XR HIP LEFT 2VW OR MORE (10/05/2023 2:07 PM CDT) Anatomical Region Laterality Modality Pelvis, Lower Extremity Radiogra phic Imaging 10/05/2023 2:10 PM CDT Impressions 10/05/2023 2:14 PM CDT IMPRESSION: No acute osseous abnormality. > Interpreting Provider: Aleks Cabral MD on 10/05/2023 2:14 PM Narrative 10/05/2023 2:14 PM CDT PROCEDURE: ??XR FOOT RIGHT WT BEARING 3VW, XR KNEE LEFT 4VW OR MORE, XR KNEE RIGHT 4VW OR MORE, XR HIP LEFT 2VW OR MORE, XR PELVIS W RIGHT HIP 2VW, XR FOOT LEFT WT BEARING 3VW DATE/TIME OF EXAM: ??10/05/2023 2:07 PM CLINICAL INFORMATION: None relevant/not provided if blank. Indication: Z47.89: Orthopedic aftercare Additional History: COMPARISON: Left foot x-rays dated 10/21/2022. FINDINGS: Right hip: There is no fracture or dislocation. The joint space is normal. A subchondral cyst is suspected in the superior acetabulum. There is a small femoral head osteophyte. There is a transitional vertebra at the lumbosacral junction. Left hip: There is no fracture or dislocation. The joint space is normal. Subchondral cysts are suspected in the superior acetabulum. There is a small femoral head osteophyte. Right knee: No acute fracture or dislocation is present. The joint spaces are normal. No erosions are seen. There is no effusion. ?? There are subchondral cysts in the lateral facet of the trochlea. There is a small lateral patellar osteophyte. Left knee: No acute fracture or dislocation is present. The joint spaces are normal. No erosions are seen. There is no effusion. Right foot: No fracture or dislocation is present. The joint spaces are normal. There is a dorsal talar neck spur. The soft tissues are normal. Left foot: No fracture or dislocation is present. The joint spaces are normal. There are small osteophytes at the first metatarsophalangeal joint. The soft tissues are normal. Procedure Note Aleks Cabral MD - 10/05/2023 PROCEDURE: XR FOOT RIGHT WT BEARING 3VW, XR KNEE LEFT 4VW OR MORE, XRKNEE RIGHT 4VW OR MORE, XR HIP LEFT 2VW OR MORE, XR PELVIS W RIGHT HIP 2VW,XR FOOT LEFT WT BEARING 3VW DATE/TIME OF EXAM: 10/05/2023 2:07 PM CLINICAL INFORMATION: None relevant/not provided if blank. Indication: Z47.89: Orthopedic aftercare Additional History: COMPARISON: Left foot x-rays dated 10/21/2022. FINDINGS: Right hip: There is no fracture or dislocation. The joint space is normal. A subchondral cyst is suspected in the superior acetabulum. There is asmall femoral head osteophyte. There is a transitional vertebra at the lumbosacral junction. Left hip: There is no fracture or dislocation. The joint space is normal.Subchondral cysts are suspected in the superior acetabulum. There is a small femoral head osteophyte. Right knee: No acute fracture or dislocation is present. The joint spaces arenormal. No erosions are seen. There is no effusion. There are subchondralcysts in the lateral facet of the trochlea. There is a small lateral patellar osteophyte. Left knee: No acute fracture or dislocation is present. The joint spaces arenormal. No erosions are seen. There is no effusion. Right foot: No fracture or dislocation is present. The joint spaces are normal.There is a dorsal talar neck spur. The soft tissues are normal. Left foot: No fracture or dislocation is present. The joint spaces are normal.There are small osteophytes at the first metatarsophalangeal joint. The soft tissues are normal. IMPRESSION: No acute osseous abnormality. > Interpreting Provider: Aleks Cabral MD on 10/05/2023 2:14 PM Fabrizio Ernst MD DIAGNOSTIC IMAGING O RDERABLES * XR FOOT LEFT WT BEARING 3VW (10/05/2023 2:07 PM CDT) Only the most recent of2 resultswithin the time period is included. Anatomical Region Laterality Modality Ankle / Foot Radiographic Marissa ging 10/05/2023 2:10 PM CDT Impressions 10/05/2023 2:14 PM CDT IMPRESSION: No acute osseous abnormality. > Interpreting Provider: Aleks Cabral MD on 10/05/2023 2:14 PM Narrative 10/05/2023 2:14 PM CDT PROCEDURE: ??XR FOOT RIGHT WT BEARING 3VW, XR KNEE LEFT 4VW OR MORE, XR KNEE RIGHT 4VW OR MORE, XR HIP LEFT 2VW OR MORE, XR PELVIS W RIGHT HIP 2VW, XR FOOT LEFT WT BEARING 3VW DATE/TIME OF EXAM: ??10/05/2023 2:07 PM CLINICAL INFORMATION: None relevant/not provided if blank. Indication: Z47.89: Orthopedic aftercare Additional History: COMPARISON: Left foot x-rays dated 10/21/2022. FINDINGS: Right hip: There is no fracture or dislocation. The joint space is normal. A subchondral cyst is suspected in the superior acetabulum. There is a small femoral head osteophyte. There is a transitional vertebra at the lumbosacral junction. Left hip: There is no fracture or dislocation. The joint space is normal. Subchondral cysts are suspected in the superior acetabulum. There is a small femoral head osteophyte. Right knee: No acute fracture or dislocation is present. The joint spaces are normal. No erosions are seen. There is no effusion. ?? There are subchondral cysts in the lateral facet of the trochlea. There is a small lateral patellar osteophyte. Left knee: No acute fracture or dislocation is present. The joint spaces are normal. No erosions are seen. There is no effusion. Right foot: No fracture or dislocation is present. The joint spaces are normal. There is a dorsal talar neck spur. The soft tissues are normal. Left foot: No fracture or dislocation is present. The joint spaces are normal. There are small osteophytes at the first metatarsophalangeal joint. The soft tissues are normal. Procedure Note Aleks Cabral MD - 10/05/2023 PROCEDURE: XR FOOT RIGHT WT BEARING 3VW, XR KNEE LEFT 4VW OR MORE, XRKNEE RIGHT 4VW OR MORE, XR HIP LEFT 2VW OR MORE, XR PELVIS W RIGHT HIP 2VW,XR FOOT LEFT WT BEARING 3VW DATE/TIME OF EXAM: 10/05/2023 2:07 PM CLINICAL INFORMATION: None relevant/not provided if blank. Indication: Z47.89: Orthopedic aftercare Additional History: COMPARISON: Left foot x-rays dated 10/21/2022. FINDINGS: Right hip: There is no fracture or dislocation. The joint space is normal. A subchondral cyst is suspected in the superior acetabulum. There is asmall femoral head osteophyte. There is a transitional vertebra at the lumbosacral junction. Left hip: There is no fracture or dislocation. The joint space is normal.Subchondral cysts are suspected in the superior acetabulum. There is a small femoral head osteophyte. Right knee: No acute fracture or dislocation is present. The joint spaces arenormal. No erosions are seen. There is no effusion. There are subchondralcysts in the lateral facet of the trochlea. There is a small lateral patellar osteophyte. Left knee: No acute fracture or dislocation is present. The joint spaces arenormal. No erosions are seen. There is no effusion. Right foot: No fracture or dislocation is present. The joint spaces are normal.There is a dorsal talar neck spur. The soft tissues are normal. Left foot: No fracture or dislocation is present. The joint spaces are normal.There are small osteophytes at the first metatarsophalangeal joint. The soft tissues are normal. IMPRESSION: No acute osseous abnormality. > Interpreting Provider: Aleks Cabral MD on 10/05/2023 2:14 PM Fabrizio Ernst MD DIAGNOSTIC IMAGING O RDERABLES * XR ANKLE LEFT 3VW OR MORE (10/21/2022 1:59 PM CDT) Anatomical Region Laterality Modality Lower Extremity Radiographic Marissa ging 10/21/2022 3:54 PM CDT Impressions 10/21/2022 3:58 PM CDT IMPRESSION: Unremarkable radiographs of the extremities as described. ?? > Interpreting Provider: Loki Owens MD on 10/21/2022 3:58 PM Narrative 10/21/2022 3:58 PM CDT PROCEDURE: ??XR FOOT LEFT WT BEARING 3VW, XR FOOT RIGHT WT BEARING 3VW, XR ANKLE LEFT 3VW OR MORE, XR ANKLE RIGHT 3VW OR MORE, DATE/TIME OF EXAM: 10/21/2022 1:59 PM, LOCATION ??[facility] INDICATION: M25.571: Arthralgia of both ankles M25.572: Arthralgia of both ankles ADDITIONAL CLINICAL INFORMATION: Ordering Provider Reason For Exam: ??Fracture COMPARISON: None. Findings: Right ankle: No fractures or dislocations seen. Mineral density is normal. Joint spaces are preserved. Corticated bony ossicles noted at the tip of the medial malleolus. ??No bony erosions or destructions are seen. ??Soft tissue swelling is noted predominantly along the lateral side of the ankle. Left ankle: No fractures or dislocations seen. Mineral density is normal. Joint spaces are preserved. ??No bony erosions or destructions are seen. Soft tissue swelling noted dominantly along the lateral and anterior segment of the ankle. ?? Right foot: No fractures or dislocations seen. Mineral density is normal. Joint spaces are preserved. ??No bony erosions or destructions are seen. ??No significant soft tissue swelling noted. ?? Left foot: No fractures or dislocations seen. Mineral density is normal. Joint spaces are preserved. ??No bony erosions or destructions are seen. ??No significant soft tissue swelling noted. ?? Procedure Note Loki Owens MD - 10/21/2022 PROCEDURE: XR FOOT LEFT WT BEARING 3VW, XR FOOT RIGHT WT BEARING 3VW,XR ANKLE LEFT 3VW OR MORE, XR ANKLE RIGHT 3VW OR MORE, DATE/TIME OF EXAM: 10/21/2022 1:59 PM, LOCATION [facility] INDICATION: M25.571: Arthralgia of both ankles M25.572: Arthralgia of both ankles ADDITIONAL CLINICAL INFORMATION: Ordering Provider Reason For Exam: Fracture COMPARISON: None. Findings: Right ankle: No fractures or dislocations seen. Mineral density is normal. Joint spaces are preserved. Corticated bony ossicles noted at the tip of the medial malleolus. No bony erosions or destructions are seen. Soft tissue swelling is noted predominantly along the lateral side of theankle. Left ankle: No fractures or dislocations seen. Mineral density is normal. Joint spaces are preserved. No bony erosions or destructions are seen. Soft tissue swelling noted dominantly along the lateral and anterior segment of the ankle. Right foot: No fractures or dislocations seen. Mineral density is normal. Joint spaces are preserved. No bony erosions or destructions are seen.No significant soft tissue swelling noted. Left foot: No fractures or dislocations seen. Mineral density is normal. Joint spaces are preserved. No bony erosions or destructions are seen.No significant soft tissue swelling noted. IMPRESSION: Unremarkable radiographs of the extremities as described. > Interpreting Provider: Loki Owens MD on 10/21/2022 3:58PM Fabrizio Ernst MD DIAGNOSTIC IMAGING O RDERABLES * XR ANKLE RIGHT 3VW OR MORE (10/21/2022 1:58 PM CDT) Anatomical Region Laterality Modality Lower Extremity Radiographic Marissa ging 10/21/2022 3:54 PM CDT Impressions 10/21/2022 3:58 PM CDT IMPRESSION: Unremarkable radiographs of the extremities as described. ?? > Interpreting Provider: Loki Owens MD on 10/21/2022 3:58 PM Narrative 10/21/2022 3:58 PM CDT PROCEDURE: ??XR FOOT LEFT WT BEARING 3VW, XR FOOT RIGHT WT BEARING 3VW, XR ANKLE LEFT 3VW OR MORE, XR ANKLE RIGHT 3VW OR MORE, DATE/TIME OF EXAM: 10/21/2022 1:59 PM, LOCATION ??[facility] INDICATION: M25.571: Arthralgia of both ankles M25.572: Arthralgia of both ankles ADDITIONAL CLINICAL INFORMATION: Ordering Provider Reason For Exam: ??Fracture COMPARISON: None. Findings: Right ankle: No fractures or dislocations seen. Mineral density is normal. Joint spaces are preserved. Corticated bony ossicles noted at the tip of the medial malleolus. ??No bony erosions or destructions are seen. ??Soft tissue swelling is noted predominantly along the lateral side of the ankle. Left ankle: No fractures or dislocations seen. Mineral density is normal. Joint spaces are preserved. ??No bony erosions or destructions are seen. Soft tissue swelling noted dominantly along the lateral and anterior segment of the ankle. ?? Right foot: No fractures or dislocations seen. Mineral density is normal. Joint spaces are preserved. ??No bony erosions or destructions are seen. ??No significant soft tissue swelling noted. ?? Left foot: No fractures or dislocations seen. Mineral density is normal. Joint spaces are preserved. ??No bony erosions or destructions are seen. ??No significant soft tissue swelling noted. ?? Procedure Note Loki Owens MD - 10/21/2022 PROCEDURE: XR FOOT LEFT WT BEARING 3VW, XR FOOT RIGHT WT BEARING 3VW,XR ANKLE LEFT 3VW OR MORE, XR ANKLE RIGHT 3VW OR MORE, DATE/TIME OF EXAM: 10/21/2022 1:59 PM, LOCATION [facility] INDICATION: M25.571: Arthralgia of both ankles M25.572: Arthralgia of both ankles ADDITIONAL CLINICAL INFORMATION: Ordering Provider Reason For Exam: Fracture COMPARISON: None. Findings: Right ankle: No fractures or dislocations seen. Mineral density is normal. Joint spaces are preserved. Corticated bony ossicles noted at the tip of the medial malleolus. No bony erosions or destructions are seen. Soft tissue swelling is noted predominantly along the lateral side of theankle. Left ankle: No fractures or dislocations seen. Mineral density is normal. Joint spaces are preserved. No bony erosions or destructions are seen. Soft tissue swelling noted dominantly along the lateral and anterior segment of the ankle. Right foot: No fractures or dislocations seen. Mineral density is normal. Joint spaces are preserved. No bony erosions or destructions are seen.No significant soft tissue swelling noted. Left foot: No fractures or dislocations seen. Mineral density is normal. Joint spaces are preserved. No bony erosions or destructions are seen.No significant soft tissue swelling noted. IMPRESSION: Unremarkable radiographs of the extremities as described. > Interpreting Provider: Loki Owens MD on 10/21/2022 3:58PM Fabrizio Ernst MD DIAGNOSTIC IMAGING O RDERABLES * LAB MICROBIOLOGY - HPF HISTORICAL (07/09/2011 5:30 AM [employer]) Only the most recent of2 resultswithin the time period is included. 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
--- OUTSIDE RECORDS SUMMARY | 2024-06-21 10:07 | XMS_ITS | Clinical Summary ---
Author Organization [facility] Address [address] [address] Care Team Providers Care Sleep Scientist Name Role Phone Timbo Gregg MD Primary Care Provider Oliverio Ladd APRN-LOADING RACK SUPERVISOR Unavailable [phone] Source Comments [facility],non-owned Affiliates and Associated Physician Practices is amultiple site organization consisting of ambulatory clinics and hospital sitesin [place], [place], [place] and [place]. This disclosure is being madepursuant to the Care Everywhere program and may not contain all information available regarding this patient. Last updated 18.[facility] Allergies Active Allergy Reactions Criticality Noted Date Comments Lisinopril Angioedema High 12/17/2014 Other reaction(s): Angioneurotic edema of larynx, Edema of the tongue, Facial swelling, Upper respiratory tract obstruction Medications * Be aware that medications may not be up to date on this document. Alwaysverify current medications with the patient. Medication Sig Dispensed Refills Start Date End Date Status amLODIPine (Norvasc) 10 MG tablet Take 1 (one) tablet by mouth once daily 10/13/2022 Active haloperidol (Haldol) 10 MG tablet Take 1 (one) tablet by mouth 2 times daily 10/20/2022 Active hydrOXYzine HCl (Atarax) 25 MG tablet Take 1 (one) tablet by mouth as directed 10/12/2022 Active benztropine (Cogentin) 1 MG tablet Take 1 (one) tablet by mouth as directed 10/12/2022 Active atorvastatin (Lipitor) 40 MG tablet Take 1 (one) tablet by mouth at bedtime 09/28/2022 Active metoprolol tartrate IR (Lopressor) 50 MG tablet Take 1 (one) tablet by mouth 2 times daily 09/29/2022 Active risperiDONE (RisperDAL) 4 MG tablet Take 1 (one) tablet by mouth 2 times daily 10/08/2022 Active traZODone (Desyrel) 150 MG tablet Take 2 (two) tablets by mouth nightly as needed for Insomnia 10/12/2022 Active Multiple Vitamin (Multi-Vitamin Daily) TABS Active haloperidol decanoate (Haldol Decanoate) 100 MG/ML injection Inject 1 mL into muscle as directed 10/12/2022 06/13/2024 Discontinued( List Clean-Up) haloperidol decanoate (Haldol Decanoate) 50 MG/ML injection Inject 1 mL into muscle as directed 10/12/2022 06/13/2024 Discontinued( List Clean-Up) Fish Oil-Cholecalcifer ol ([place]vak-3 Fish Oil/Vitamin D3) 5565-7002 MG-UNIT CAPS Take 1,000 mg by mouth once daily 06/13/2024 Discontinued( List Clean-Up) Cyanocobalamin 500 MCG Dissolve 500 mcg under the tongue once daily 06/13/2024 Discontinued( List Clean-Up) Cholecalciferol 50 MCG (2000 UT) Take 2,000 Units by mouth once daily 06/13/2024 Discontinued( List Clean-Up) aspirin EC (Ecotrin) 81 MG tablet Take 1 (one) tablet by mouth once daily 06/13/2024 Discontinued( List Clean-Up) Ascorbic Acid 500 MG Take 500 mg by mouth once daily 06/13/2024 Discontinued( List Clean-Up) Active Problems Problem Noted Date Diagnosed Date Arterial hypotension 10/21/2022 10/21/2022 Arthralgia 10/21/2022 10/21/2022 Undifferentiated schizophrenia 10/21/2022 0 10/21/2022 Schizophrenia, unspecified 10/21/202210/21 Psychotic disorder 10/21/2022 10/21/2022 Schizophrenia 10/21/2022 10/21/2022 Hypersomnia with sleep apnea 10/21/202205/2022 Obesity 10/21/2022 10/21/2022 Tobacco user 10/21/2022 10/21/2022 Type 2 diabetes mellitus without complication 10/21/2022 Bipolar disorder with depression 11/18/2021 10/21/2022 Overview (10/21/2022): Last Assessment & Plan: Continue risperidone/Cogentin at same dosage. Well controlled. Followed and managed by Psychiatry. Not suicidal/homicidal. No substance use. Mixed hyperlipidemia 11/18/2021 10/21/2022 Overview (10/21/2022): Last Assessment & Plan: Continue atorvastatin. Needs repeat lipids. Morbid obesity with BMI of 40.0-44.9, adult 10/2210/21/2022 Overview (10/21/2022): Last Assessment & Plan: BMI Follow-up includes: nutrition counseling and exercise counseling. Other group home (current) drug therapy 10/21/2022 Microalbuminuria 08/26/2021 10/21/2022 Exposure to SARS-associated coronavirus 08/12/19 22 10/21/2022 Diastolic dysfunction 11/26/2020 10/21/2022 B12 deficiency 09/25/2020 10/21/2022 Chest pain, atypical 09/25/2020 10/21/2022 Chronic schizophrenia 09/25/2020 10/21/2022 Overview (10/21/2022): Last Assessment & Plan: Adequate control on risperidone and Cogentin followed and managed by Psychiatry. Occasionally hears voices but under adequate control. No hallucinations. Not suicidal/homicidal. No substance use. 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 0 10/21/2022 Encounter for health-related screening 10/21/2022 Overview (10/21/2022): neg tsh and a1c Hypertension, essential 09/25/2020 10/22/19 23 Overview (10/21/2022): Last Assessment & Plan: Continue amlodipine/metoprolol at same dosage. Well controlled. Other and unspecified hyperlipidemia 09/25/2020 10/21/2022 Obesity 09/25/2020 10/21/2022 Sleep apnea 09/25/2020 10/21/2022 Vitamin D deficiency 09/25/2020 10/21/2022 Tobacco use disorder, continuous 09/25/2020 10/21/2022 Other specified postprocedural states 01/07/2015 History of tracheostomy 01/07/2015 10/22/19 23 Encounters Date Type Department Care Team Description 06/13/2024 2:55 PM CHIEF ENGINEER PRODUCTION - 06/13/2024 11:59 PM CHIEF ENGINEER PRODUCTION Hospital Encounter [facility] Imaging Services [address] [place] [address] Timbo Gregg MD Discharge Disposition: Home or Self Care 06/13/2024 1:20 PM CHIEF ENGINEER PRODUCTION Office Visit [facility] - Rheumatology [address], [address] [place] [address] Panchito Finnegan DO Polyarthralgia (Primary Dx); Positive TRE (antinuclear antibody); Chronic midline low back pain without sciatica; Chronic right hip pain; Chronic left hip pain; Chronic pain of left knee; Chronic pain of right knee from Last 3 Months Immunizations Name Administration Dates Next Due FLU VACCINE TRI IIV3 SPLIT PF IM (FLUVIRIN) 05/25 HEP A/HEP B 08/20/2013,10/09/2010,05/25/2010 INFLUENZA VACCINE 07/20/2012,06/03/2011 PNEUMOCOCCAL PPV VACCINE 07/20/2012 TDAP (7yrs+) 02/23/2010 Social History Tobacco Use Types Packs/Day Years [...] Comments Blood Pressure 124/80 06/13/2024 1:11 PM CHIEF ENGINEER PRODUCTION Pulse 70 06/13/2024 1:11 PM CHIEF ENGINEER PRODUCTION Temperature 36.1 ??C (97 ??F) 06/13/2024 1:11 PM CHIEF ENGINEER PRODUCTION Respiratory Rate 16 06/13/2024 1:11 PM CHIEF ENGINEER PRODUCTION Oxygen Saturation 95% 06/13/2024 1:11 PM CHIEF ENGINEER PRODUCTION Inhaled Oxygen Concentration - - Weight 129.3 kg (285 lb) 06/13/2024 1:11 PM CHIEF ENGINEER PRODUCTION Height 175.3 cm (5' 9 ) 06/13/2024 1:11 PM CHIEF ENGINEER PRODUCTION Body Mass Index 42.09 06/13/2024 1:11 PM CHIEF ENGINEER PRODUCTION Plan of Treatment Upcoming Encounters Date Type Department Care Team (Late st Contact Info) Description 06/27/2024 11:40 AM CHIEF ENGINEER PRODUCTION Office Visit [facility] - Rheumatology [address], [address] [place] [address] Panchito Finnegan, [address] [place] [address] Health Maintenance Due Date Last Done Comments COLOGUARD (AGES 45-75) - COL ON CA SCREENING 1971 COLON MONITORING 1971 COLONOSCOPY - COLON CA SCREENING 1971 CT COLONOGRAPHY - COLON CA SCREENING 1971 Colorectal Cancer Screening 1971 FIT - COLON CA SCREENING 1971 FLEX SIG - COLON CA SCREENING 1971 MENINGOCOCCAL VACCINE (1 - Risk 2-dose series) 1973 MENINGOCOCCAL (Group B) VACCINE (1 of 5 - Increased Risk) 1981 HIV SCREENING 1986 HEPATITIS C SCREENING 04/05/1989 PNEUMOCOCCAL VACCINE 50+ (2 of 2 - PCV) 07/20/2013 07/20/2012 DTAP/TDAP/TD VACCINES (2 - T d or Tdap) 02/24/2020 02/23/2010 ZOSTER VACCINE (1 of 2) 2021 DIABETES-SERUM CREATININE 09/16/20222021, 09/16/2021 DIABETES RETINOPATHY SCREENING 10/21/2022 DIABETES-FOOT EXAM WITH MONOFILAMENT 10/21/2022 DIABETES-HGB A1C 10/21/2022 COVID-19 VACCINE (1 - 2023-2 5 season) 2024 INFLUENZA VACCINE (#1) 2024 5, 07/20/2012, 06/03/2011 DIABETES - URINE PROTEIN SCREENING 05/23/2024 MEDICARE AWV ? CALENDAR YEAR 2024 HEPATITIS B VACCINE Completed 08/20/2013, 10/09/2010, 05/25/2010 HIB VACCINE Aged Out No longer eligi ble based on patient's age to complete this topic HPV VACCINE Aged Out No longer eligi ble based on patient's age to complete this topic Procedures Procedure Name Priority Date/Time Associated Diagnosis Comments XR PELVIS W BILAT HIP 1VW Routine 06/13/2024 3:34 PM CHIEF ENGINEER PRODUCTION Chronic left hip pain XR KNEE BILAT 2VW OR LESS Routine 06/13/2024 3:34 PM CHIEF ENGINEER PRODUCTION Chronic pain of left knee XR LUMBAR SPINE 4VW OR MORE Routine 06/13/2024 3:34 PM CHIEF ENGINEER PRODUCTION Chronic midline low back pain without sciatica ERYTHROCYTE SEDIMENTATION RATE Routine 06/13/2024 2:38 PM CHIEF ENGINEER PRODUCTION Polyarthralgia LUPUS ANTICOAGULANT PANEL W RFLX Routine 06/13/2024 2:38 PM CHIEF ENGINEER PRODUCTION Positive TRE (antinuclear antibody) CARDIOLIPIN ANTIBODY IGA/IGG/IGM PANEL Routine 06/13/2024 2:38 PM CHIEF ENGINEER PRODUCTION Positive TRE (antinuclear antibody) TRE PANEL COMPREHENSIVE Routine 06/13/2024 2:38 PM CHIEF ENGINEER PRODUCTION Positive TRE (antinuclear antibody) TRE BLOOD SCREEN W/REFLEX TITER Routine 06/13/2024 2:38 PM CHIEF ENGINEER PRODUCTION Positive TRE (antinuclear antibody) RIBOSOMAL P PROTEIN ANTIBODY Routine 06/13/2024 2:37 PM CHIEF ENGINEER PRODUCTION Positive TRE (antinuclear antibody) COMPLEMENT C3 C4 PANEL Routine 2:37 PM CHIEF ENGINEER PRODUCTION Positive TRE (antinuclear antibody) from Last 3 Months Results * XR Pelvis W Bilat Hip 1Vw (06/13/2024 3:34 PM CHIEF ENGINEER PRODUCTION) Anatomical Region Laterality Modality Pelvis Radiographic Marissa ging 06/13/2024 5:09 PM CHIEF ENGINEER PRODUCTION Impressions 06/13/2024 5:12 PM CHIEF ENGINEER PRODUCTION IMPRESSION: 1. ??No significant hip findings. 2. 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 ??No acute findings. 2. ??Mild bilateral knee primary osteoarthritis > Interpreting Provider: Sarah Mchugh MD on 06/13/2024 5:13 PM Narrative 06/13/2024 5:13 PM CHIEF ENGINEER PRODUCTION PROCEDURE: ??XR KNEE BILAT 2VW OR LESS [...] Spine 4Vw or More (06/13/2024 3:34 PM CHIEF ENGINEER PRODUCTION) Anatomical Region Laterality Modality Spine Radiographic Marissa ging 06/13/2024 5:08 PM CHIEF ENGINEER PRODUCTION Impressions 06/13/2024 5:09 PM CHIEF ENGINEER PRODUCTION IMPRESSION: 1. ??L3-L4 grade 1-2 degenerative subluxation > Interpreting Provider: Sarah Mchugh MD on 06/13/2024 5:09 PM Narrative 06/13/2024 5:09 PM CHIEF ENGINEER PRODUCTION PROCEDURE: ??XR LUMBAR SPINE 4VW OR MORE [...] CARDIOLIPIN ANTIBODY IGA/IGG/IGM PANEL (06/13/2024 2:38 PM CHIEF ENGINEER PRODUCTION) Cardiolipin Antibody IgG <9 0 - 14 [...] BLOOD SPECIMEN / Unknown 06/13/2024 2:38 PM CHIEF ENGINEER PRODUCTION 06/13/2024 Narrative [facility] ACCOUNT BILL - 06/14/2024 5:07 PM CHIEF ENGINEER PRODUCTION Performed at: ??01 - [facility] [address] [place], [place] ??[id number] Track Laying Supervisor: Tacho Shoemaker PhD, Phone: ??[phone] Panchito Finnegan DO LAB - SEROLOGY ORDER EVI Performing Organization Address City/State/[facility] Co de Phone Number [facility] ACCOUNT BILL [address] [place] [address] * TRE PANEL COMPREHENSIVE (06/13/2024 2:38 PM CHIEF ENGINEER PRODUCTION) Anti-dsDNA Quantitative <1 0 - 9 IU/mL [facility] ACCOUNT BILL Comment: ? Negative ?<5 ? Equivocal ??5 - 9 ? Positive ?>9 ELECTRONICS ENGINEERING PROFESSOR Antibody <0.2 0.0 - 0.9 AI [facility] [...] Sm (anti-Melo) ?SLE ?15 - 30% ?--------- ELECTRONICS ENGINEERING PROFESSOR ?Mixed Connective Tissue ? Disease ? 95% [...] BLOOD SPECIMEN / Unknown 06/13/2024 2:38 PM CHIEF ENGINEER PRODUCTION 06/13/2024 Narrative [facility] ACCOUNT BILL - 06/14/2024 3:08 PM CHIEF ENGINEER PRODUCTION Performed at: ??01 - [facility] [address] ??[id number] Track Laying Supervisor: Tacho Shoemaker PhD, Phone: ??[phone] Panchito Finnegan DO LAB - SEROLOGY ORDER EVI Performing Organization Address [facility] Co de Phone Number [facility] ACCOUNT BILL [address] [place] [address] * LUPUS ANTICOAGULANT PANEL W RFLX (06/13/2024 2:38 PM CHIEF ENGINEER PRODUCTION) PTT-LA 37.3 0.0 - 43.5 sec [facility] ACCOUNT BILL dRVVT 30.7 0.0 - 47.0 sec [facility] ACCOUNT BILL Interpretation Comment: [facility] ACCOUNT BILL Comment:No lupus anticoagula nt was detected. Blood BLOOD SPECIMEN / Unknown 06/13/2024 2:38 PM CHIEF ENGINEER PRODUCTION 06/13/2024 Narrative [facility] ACCOUNT BILL - 06/14/2024 7:07 PM CHIEF ENGINEER PRODUCTION Performed at: ??01 - [facility] [address] ??[id number] Track Laying Supervisor: Jorge Romero MD, Phone: ??[phone] Panchito Finnegan DO LAB - HEMATOLOGY ORD ERABLES Performing Organization Address City/[facility]/ZIP Co de Phone Number [facility] ACCOUNT BILL [address] [place] [address] * TRE BLOOD SCREEN W/REFLEX TITER (06/13/2024 2:38 PM CHIEF ENGINEER PRODUCTION) TRE Negative [facility] ACCOUNT BILL Comment: ? Negative ?? <1:80 ? Borderline ??1:80 ? Positive ?? >1:80 ICAP nomenclature: AC-0 For more information about Hep-2 cell patterns use ANApatterns.org, the official website for the International Consensus on Antinuclear Antibody (TRE) Patterns (ICAP). Blood BLOOD SPECIMEN / Unknown 06/13/2024 2:38 PM CHIEF ENGINEER PRODUCTION 06/13/2024 Narrative [facility] ACCOUNT BILL - 06/15/2024 7:07 PM CHIEF ENGINEER PRODUCTION Performed at: ??01 - [facility] [address] ??[id number] Track Laying Supervisor: Tacho Shoemaker PhD, Phone: ??[phone] Panchito Finnegan DO LAB - CHEMISTRY BECKI BUTT [facility] ACCOUNT BILL [address] [place] [address] * (ABNORMAL) SED RATE AUTO (ESR) (06/13/2024 2:38 PM CHIEF ENGINEER PRODUCTION) Erythrocyte Sedimentation Rate Westergren 44(H) 0 - 30 mm/hr [facility] ACCOUNT BILL Blood BLOOD SPECIMEN / Unknown 06/13/2024 2:38 PM CHIEF ENGINEER PRODUCTION 06/13/2024 Narrative [facility] ACCOUNT BILL - 06/14/2024 7:09 AM CHIEF ENGINEER PRODUCTION Performed at: ??01 - [facility] [address] ??[id number] Track Laying Supervisor: Tacho Shoemaker PhD, Phone: ??[phone] Panchito Finnegan DO LAB - HEMATOLOGY ORD ERABLES [facility] ACCOUNT BILL [address] [place] [address] * RIBOSOMAL P PROTEIN ANTIBODY (06/13/2024 2:37 PM CHIEF ENGINEER PRODUCTION) Antiribosomal P Antibody <0.2 0.0 - 0.9 AI [facility] ACCOUNT BILL Blood BLOOD SPECIMEN / Unknown 06/13/2024 2:37 PM CHIEF ENGINEER PRODUCTION 06/13/2024 Narrative [facility] ACCOUNT BILL - 06/14/2024 1:08 PM CHIEF ENGINEER PRODUCTION Performed at: ??01 - [facility] [address] ??[id number] Track Laying Supervisor: Tacho Shoemaker PhD, Phone: ??[phone] Panchito Finnegan DO LAB - CHEMISTRY BECKI BUTT Performing Organization Address [facility] Co de Phone Number [facility] ACCOUNT BILL [address] [place] [address] * (ABNORMAL) COMPLEMENT C3 C4 PANEL (06/13/2024 2:37 PM CHIEF ENGINEER PRODUCTION) Complement C3 178(H) 82 - 167 mg/dL [facility] ACCOUNT BILL Complement C4 41(H) 12 - 38 mg/dL [facility] ACCOUNT BILL Blood BLOOD SPECIMEN / Unknown 06/13/2024 2:37 PM CHIEF ENGINEER PRODUCTION 06/13/2024 Narrative [facility] ACCOUNT BILL - 06/14/2024 1:08 PM CHIEF ENGINEER PRODUCTION Performed at: ??01 - [facility] [address] ??[id number] Track Laying Supervisor: Tacho Shoemaker PhD, Phone: ??[phone] Panchito Finnegan DO LAB - CHEMISTRY ORDE RABTRICE [facility] ACCOUNT BILL [address] [place] [address] from Last 3 Months Care Teams Sleep Scientist Relationship Specialty Start Date End Date Timbo Gregg MD [address] [place] [phone] PCP - General Internal Medicine 02/15/24 Oliverio Ladd APRN-LOADING RACK SUPERVISOR [address] [place] [address] [place] [id number] Nurse Practitioner Nurse Practitioner Family 02/17/24
--- OUTSIDE RECORDS SUMMARY | 2024-06-21 10:07 | XMS_ITS | Referral Summary ---
Author Organization [facility] Address [address] [place] [address] Care Team Providers Care Traffic Signal Repairer Name Role Phone Timbo Gregg MD Primary Care Provider Oliverio Ladd APRN-STRAIGHTENING PRESS OPERATOR Unavailable [phone] Source Comments [facility],non-owned Affiliates and Associated Physician Practices is amultiple site organization consisting of ambulatory clinics and hospital sitesin [place], [place], [place] and [place]. This disclosure is being madepursuant to the Care Everywhere program and may not contain all information available regarding this patient. Last updated 18.[facility] Encounters Date Type Department Care Team Description 06/13/2024 2:55 PM DISTRIBUTION CLERK - 06/13/2024 11:59 PM DISTRIBUTION CLERK Hospital Encounter [facility] Imaging Services [address] [place] [address] Timbo Gregg MD Discharge Disposition: Home or Self Care 06/13/2024 1:20 PM DISTRIBUTION CLERK Office Visit [facility] - Rheumatology [address], [address] [place] [id number] Panchito Finnegan DO Polyarthralgia (Primary Dx); Positive TRE (antinuclear antibody); Chronic midline low back pain without sciatica; Chronic right hip pain; Chronic left hip pain; Chronic pain of left knee; Chronic pain of right knee from Last 3 Months Allergies Active Allergy Reactions Criticality Noted Date [...] 06/13/2024 Discontinued( List Clean-Up) Fish Oil-Cholecalcifer ol ([place]-3 Fish Oil/Vitamin D3) 9987-3255 MG-UNIT CAPS Take 1,000 mg by mouth [...] includes: nutrition counseling and exercise counseling. 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) drug therapy 10/21/2022 Microalbuminuria 08/26/2021 10/21/2022 [...] History of tracheostomy 01/07/2015 10/22/19 23 Immunizations Name Administration Dates Next Due FLU [...] Comments Blood Pressure 124/80 06/13/2024 1:11 PM DISTRIBUTION CLERK Pulse 70 06/13/2024 1:11 PM DISTRIBUTION CLERK Temperature 36.1 ??C (97 ??F) 06/13/2024 1:11 PM DISTRIBUTION CLERK Respiratory Rate 16 06/13/2024 1:11 PM DISTRIBUTION CLERK Oxygen Saturation 95% 06/13/2024 1:11 PM DISTRIBUTION CLERK Inhaled Oxygen Concentration - - Weight 129.3 kg (285 lb) 06/13/2024 1:11 PM DISTRIBUTION CLERK Height 175.3 cm (5' 9 ) 06/13/2024 1:11 PM DISTRIBUTION CLERK Body Mass Index 42.09 06/13/2024 1:11 PM DISTRIBUTION CLERK Plan of Treatment Upcoming Encounters Date Type Department Care Team (Late st Contact Info) Description 06/27/2024 11:40 AM DISTRIBUTION CLERK Office Visit [facility] - Rheumatology [address], [address] [place] [address] Panchito Finnegan, [address] [place] [address] Procedures Procedure Name Priority Date/Time Associated Diagnosis Comments XR PELVIS W BILAT HIP 1VW Routine 06/13/2024 3:34 PM DISTRIBUTION CLERK Chronic left hip pain XR KNEE BILAT 2VW OR LESS Routine 06/13/2024 3:34 PM DISTRIBUTION CLERK Chronic pain of left knee XR LUMBAR SPINE 4VW OR MORE Routine 06/13/2024 3:34 PM DISTRIBUTION CLERK Chronic midline low back pain without sciatica ERYTHROCYTE SEDIMENTATION RATE Routine 06/13/2024 2:38 PM DISTRIBUTION CLERK Polyarthralgia LUPUS ANTICOAGULANT PANEL W RFLX Routine 06/13/2024 2:38 PM DISTRIBUTION CLERK Positive TRE (antinuclear antibody) CARDIOLIPIN ANTIBODY IGA/IGG/IGM PANEL Routine 06/13/2024 2:38 PM DISTRIBUTION CLERK Positive TRE (antinuclear antibody) TRE PANEL COMPREHENSIVE Routine 06/13/2024 2:38 PM DISTRIBUTION CLERK Positive TRE (antinuclear antibody) TRE BLOOD SCREEN W/REFLEX TITER Routine 06/13/2024 2:38 PM DISTRIBUTION CLERK Positive TRE (antinuclear antibody) RIBOSOMAL P PROTEIN ANTIBODY Routine 06/13/2024 2:37 PM DISTRIBUTION CLERK Positive TRE (antinuclear antibody) COMPLEMENT C3 C4 PANEL Routine 2:37 PM DISTRIBUTION CLERK Positive TRE (antinuclear antibody) from Last 3 Months Results * XR Pelvis W Bilat Hip 1Vw (06/13/2024 3:34 PM DISTRIBUTION CLERK) Anatomical Region Laterality Modality Pelvis Radiographic Marissa ging 06/13/2024 5:09 PM DISTRIBUTION CLERK Impressions 06/13/2024 5:12 PM DISTRIBUTION CLERK IMPRESSION: 1. ??No significant hip findings. 2. 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 ??No acute findings. 2. ??Mild bilateral knee primary osteoarthritis > Interpreting Provider: Sarah Mchugh MD on 06/13/2024 5:13 PM Narrative 06/13/2024 5:13 PM DISTRIBUTION CLERK PROCEDURE: ??XR KNEE BILAT 2VW OR LESS [...] Spine 4Vw or More (06/13/2024 3:34 PM DISTRIBUTION CLERK) Anatomical Region Laterality Modality Spine Radiographic Marissa ging 06/13/2024 5:08 PM DISTRIBUTION CLERK Impressions 06/13/2024 5:09 PM DISTRIBUTION CLERK IMPRESSION: 1. ??L3-L4 grade 1-2 degenerative subluxation > Interpreting Provider: Sarah Mchugh MD on 06/13/2024 5:09 PM Narrative 06/13/2024 5:09 PM DISTRIBUTION CLERK PROCEDURE: ??XR LUMBAR SPINE 4VW OR MORE [...] Mchugh MD on 06/13/2024 5:09 PM Panchito Kain DO DIAGNOSTIC IMAGING O RDERABLES * CARDIOLIPIN ANTIBODY IGA/IGG/IGM PANEL (06/13/2024 2:38 PM DISTRIBUTION CLERK) Cardiolipin Antibody IgG <9 0 - 14 [...] BLOOD SPECIMEN / Unknown 06/13/2024 2:38 PM DISTRIBUTION CLERK 06/13/2024 Narrative [facility] ACCOUNT BILL - 06/14/2024 5:07 PM DISTRIBUTION CLERK Performed at: ??01 - [facility] [address] [place], [place] ??[id number] Burn Center Nurse: Tacho Shoemaker PhD, Phone: ??[phone] Panchito Finnegan DO LAB - SEROLOGY ORDER EVI [facility] ACCOUNT BILL [address] [place] [address] * TRE PANEL COMPREHENSIVE (06/13/2024 2:38 PM DISTRIBUTION CLERK) Anti-dsDNA Quantitative <1 0 - 9 IU/mL [facility] ACCOUNT BILL Comment: ? Negative ?<5 ? Equivocal ??5 - 9 ? Positive ?>9 CURTAIN SUPERVISOR Antibody <0.2 0.0 - 0.9 AI [facility] ACCOUNT BILL Kameron (DOMENICO) Antibody <0.2 0.0 - 0.9 AI [...] Sm (anti-Melo) ?SLE ?15 - 30% ?--------- CURTAIN SUPERVISOR ?Mixed Connective Tissue ? Disease ? 95% [...] BLOOD SPECIMEN / Unknown 06/13/2024 2:38 PM DISTRIBUTION CLERK 06/13/2024 Narrative [facility] ACCOUNT BILL - 06/14/2024 3:08 PM DISTRIBUTION CLERK Performed at: ??01 - [facility] ??[id number] Burn Center Nurse: Tacho Shoemaker PhD, Phone: ??[phone] Panchito Finnegan DO LAB - SEROLOGY ORDER EVI Performing Organization Address City/State/[facility] Co de Phone Number [facility] ACCOUNT BILL [address] [place] [address] * LUPUS ANTICOAGULANT PANEL W RFLX (06/13/2024 2:38 PM DISTRIBUTION CLERK) PTT-LA 37.3 0.0 - 43.5 sec [facility] ACCOUNT BILL dRVVT 30.7 0.0 - 47.0 sec [facility] ACCOUNT BILL Interpretation Comment: [facility] ACCOUNT BILL Comment:No lupus anticoagula nt was detected. Blood BLOOD SPECIMEN / Unknown 06/13/2024 2:38 PM DISTRIBUTION CLERK 06/13/2024 Narrative [facility] ACCOUNT BILL - 06/14/2024 7:07 PM DISTRIBUTION CLERK Performed at: ??01 - [facility] [address] ??[id number] Burn Center Nurse: Jorge Romero MD, Phone: ??[phone] Panchito Finnegan DO LAB - HEMATOLOGY ORD ERABLES Performing Organization Address [facility] de Phone Number [facility] ACCOUNT BILL [address] [place] [address] * TRE BLOOD SCREEN W/REFLEX TITER (06/13/2024 2:38 PM DISTRIBUTION CLERK) TRE Negative [facility] ACCOUNT BILL Comment: ? Negative ?? <1:80 ? Borderline ??1:80 ? Positive ?? >1:80 ICAP nomenclature: AC-0 For more information about Hep-2 cell patterns use ANApatterns.org, the official website for the International Consensus on Antinuclear Antibody (TRE) Patterns (ICAP). Blood BLOOD SPECIMEN / Unknown 06/13/2024 2:38 PM DISTRIBUTION CLERK 06/13/2024 Narrative [facility] ACCOUNT BILL - 06/15/2024 7:07 PM DISTRIBUTION CLERK Performed at: ??01 - [facility] [address] [place], [place] ??[id number] Burn Center Nurse: Tacho Shoemaker PhD, Phone: ??[phone] Panchito Finnegan DO LAB - CHEMISTRY BECKI BUTT Performing Organization Address [facility] Co de Phone Number [facility] ACCOUNT BILL [address] [place] [address] * (ABNORMAL) SED RATE AUTO (ESR) (06/13/2024 2:38 PM DISTRIBUTION CLERK) Erythrocyte Sedimentation Rate Westergren 44(H) 0 - 30 mm/hr [facility] ACCOUNT BILL Blood BLOOD SPECIMEN / Unknown 06/13/2024 2:38 PM DISTRIBUTION CLERK 06/13/2024 Narrative [facility] ACCOUNT BILL - 06/14/2024 7:09 AM DISTRIBUTION CLERK Performed at: ??01 - [facility] ??[id number] Burn Center Nurse: Tacho Shoemaker PhD, Phone: ??[phone] Panchito Finnegan DO LAB - HEMATOLOGY ORD ERABLES Performing Organization Address City/[facility]/ZIP Co de Phone Number [facility] ACCOUNT BILL [address] [place] [address] * RIBOSOMAL P PROTEIN ANTIBODY (06/13/2024 2:37 PM DISTRIBUTION CLERK) Pathologist [facility] Antiribosomal P Antibody <0.2 0.0 - 0.9 AI [facility] ACCOUNT BILL Blood BLOOD SPECIMEN / Unknown 06/13/2024 2:37 PM DISTRIBUTION CLERK 06/13/2024 Narrative [facility] ACCOUNT BILL - 06/14/2024 1:08 PM DISTRIBUTION CLERK Performed at: ??01 - [facility] ??[id number] Burn Center Nurse: Tacho Shoemaker PhD, Phone: ??[phone] Panchito Finnegan DO LAB - CHEMISTRY ORDE RABLES Performing Organization Address City/[facility]/ZIP Co de Phone Number [facility] ACCOUNT BILL [address] [place] [address] * (ABNORMAL) COMPLEMENT C3 C4 PANEL (06/13/2024 2:37 PM DISTRIBUTION CLERK) Complement C3 178(H) 82 - 167 mg/dL [facility] ACCOUNT BILL Complement C4 41(H) 12 - 38 mg/dL [facility] ACCOUNT BILL Blood BLOOD SPECIMEN / Unknown 06/13/2024 2:37 PM DISTRIBUTION CLERK 06/13/2024 Narrative [facility] ACCOUNT BILL - 06/14/2024 1:08 PM DISTRIBUTION CLERK Performed at: ??01 - [facility] [address] [place], [place] ??[id number] Burn Center Nurse: Tacho Shoemaker PhD, Phone: ??[phone] Panchito Finnegan DO LAB - CHEMISTRY BECKI BUTT [facility] ACCOUNT BILL [address] [place] [address] from Last 3 Months Care Teams Traffic Signal Repairer Relationship Specialty Start Date End Date Timbo Gregg MD [address] [place] [phone] PCP - General Internal Medicine 02/15/24 Oliverio Ladd APRN-STRAIGHTENING PRESS OPERATOR [address] [place] [address] [place] [address] Nurse Practitioner Nurse Practitioner [facility] 02/17/24
--- NOTE | ~2024-06-28 | CT_ITS ---
EXAMINATION:CT lung screening DATE: 06/28/2024 14:56 INDICATION: Nicotine dependence. Current smoker with 30 pack year history. TECHNIQUE: Computed tomography (CT) of the chest was performed without intravenous contrast. Automate d exposure control and iterative reconstruction technique were employed. The dose-length product (DLP ) was 256.47 mGy-cm. COMPARISON: None. FINDINGS: The lungs demonstrate mild atelectasis. No pleural effusion. The heart size is normal. No p ericardial effusion. There are coronary artery calcifications. There is bilateral gynecomastia. There is mild thoracic spondylosis. There is mild chronic anterior wedging of multiple vertebral bodies. IMPRESSION: 1. Lung-RADS category 1: Negative. Continue annual screening with noncontrast low-dose chest CT in 12 months. Reviewed, dictated and finalized at location A. PRODUCTION ASSISTANT IMPRESSION: 1. Lung-RADS category 1: Negative. Continue annual screening with noncontrast l ow-dose chest CT in 12 months.
--- OUTSIDE RECORDS SUMMARY | 2024-06-28 14:43 | XMS_ITS ---
Author Name [facility] [place] [facility] [place] [facility] [facility] [place] Address [address] [place] [address] Support Name Relationship Address Phone CLARISA BOWEN Next of Kin [address] [facility] [address] [place], [place] [id number] CLARISA BOWEN Emergency Contact [address] [place] [address] [place] [address] JORDYN HUNG Emergency Contact Unknown [phone] Insurance Providers: All historical and current Section Date Range: From patient's date of to the date document was created. This section includes the names of all active insurance providers for the patient. Insurance Provider Type of Coverage Plan Name Start of Policy Coverage End of Policy Coverage Group Number Member ID Insurance Provider's Telephone Number Policy Whitaker's Name Patient's Relationship to Policy Whitaker [facility] (WNR) MEDICARE ADVANTAGE [facility] (WNR) May 23, 2023 [id number] JOSE LEMUS PATIENT MEDICARE (WNR) MEDICARE (M) PART B Nov 21, 2011 PART B [id number] JOSE LEMUS PATIENT MEDICARE (WNR) MEDICARE (M) PART A Feb 20, 2006 PART A [id number] [phone] JOSE LEMUS PATIENT Selected Encounter This section includes the information on record at [place] for the Encounter. 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 Date/Time Primary/Secondary Diagnosis Diagnosis Name Provider Source Feb 09, 2024 11:45 AM PRIMARY Undifferentiated schizophrenia MAEGAN CABALLERO V [facility] Plan of Treatment: Future Appointments (+ 6 months) and Future Tests (+/- 45 days) The Plan of Treatment section includes future care activities for the patient from all [place] [facility]. This section includes future appointments and future orders which are active, pending or scheduled. Future Appointments This section includes appointments that were scheduled to occur 6 months from the date of the Encounter, up to a maximum of 20 appointments. The data comes from all [place] treatment facilities. Appointment Date/Time Appointment Type Appointme nt Facility Name Feb 14, 2024 10:00 AM AMBULATORY - PSYCHIATRY [facility] Feb 23, 2024 11:00 AM AMBULATORY PSYCHIATRY [facility] Mar 13, 2024 10:00 AM AMBULATORY PSYCHIATRY [facility] Apr 24, 2024 10:00 AM AMBULATORY PSYCHIATRY [facility] Jun 06, 2024 11:00 AM AMBULATORY [facility]CHIATRY [facility] Jun 20, 2024 01:00 PM AMBULATORY - PSYCHIATRY [facility] Jul 03, 2024 10:00 AM AMBULATORY PSYCHIATRY [facility] Vital Signs: All taken on the encounter date This section contains inpatient and outpatient Vital Signs collected on the date of the Encounter. Date/Time Temperature Pulse Blood Pressure Respiratory Rate SP02 Pain Height Weight Body Mass Index Source Feb 09, 2024 11:05 AM 98.1 87 129/86 22 [address] [facility] Social History: Smoking Status (Most current) and Tobacco Use (All prior to encounter date) This section includes the most current, and the historical, smoking and tobacco- related health factors from the [place] facility where the Encounter took place. Current Smoking Status This section includes the most current smoking, or tobacco-related health factor, from the [place] facility where the Encounter took place. Date/Time Current Smoking Status Comment Facil ity October 14, 2017 10:33 AM TOBACCO USER OFFERED MEDS [facility] Tobacco Use History This section includes a history of the smoking, or tobacco-related health factors, that were collected on or before the date of the Encounter. The data comes from the [place] facility where the Encounter took place. Date/Time Smoking Status/Tobacco Use Comment F acility October 14, 2017 10:33 AM CURRENT TOBACCO US ER (NOT READY TO QUIT) [facility] October 14, 2017 10:33 AM TOBACCO CESSATION REFERRAL DECLINED [facility] October 14, 2017 10:33 AM TOBACCO MEDS OFFER ED BUT DECLINED [facility] October 14, 2017 10:33 AM TOBACCO USER OFFERED MEDS [facility] May 19, 2016 08:47 AM CURRENT TOBACCO USER [facility] May 19, 2016 08:47 AM TOBACCO MEDS OFFER ED BUT DECLINED [facility] Jun 06, 2015 08:37 AM CURRENT TOBACCO USER [facility] Jun 06, 2015 08:37 AM TOBACCO MEDS OFFER ED BUT DECLINED [facility] Jun 21, 2014 11:47 AM CURRENT TOBACCO USER [facility] Jun 21, 2014 11:47 AM TOBACCO MEDS OFFER ED BUT DECLINED [facility] Jul 10, 2013 11:20 AM CURRENT TOBACCO USER [facility] Jul 10, 2013 11:[address] [facility] Jun 22, 2012 01:[address]BACCO USER [facility] Jun 22, 2012 01:00 PM TOBACCO MEDS OFFER ED BUT DECLINED [facility] Jul 19, 2011 09:34 AM CURRENT TOBACCO USER [facility] Jul 19, 2011 09:34 AM TOBACCO MEDS OFFER ED BUT DECLINED [facility] Sep 07, 2010 03:28 PM CURRENT TOBACCO USER [facility] Sep 07, 2010 03:28 PM TOBACCO MEDS OFFER ED BUT DECLINED [facility] Sep 18, 2009 02:05 [address]BACCO USER [facility] Apr 05, 2007 10:51 AM CURRENT TOBACCO USER [facility] Apr 05, 2007 10:51 AM TOB-DECLINES SMOKI NG CESSATION REFERRAL [facility] Apr 05, 2007 10:51 AM TOBACCO MEDS OFFER ED BUT DECLINED [facility] Advance Directives: All historical and current Section Date Range: From patient's date of to the date document was created. This section includes ALL of a patient's completed or amended [place] Advance and Rescinded Directives. The entries below indicate that a directive exists for the patient, but an actual copy is not included with this document. The data comes from all [place] facilities. Date Advance Directives Provider Source Feb 17, [address] [facility] Oct 22, 2003 ADVANCE DIRECTIVE KEYSHAWN VELARDE [facility] Encounter Notes: All associated encounter notes This section contains the clinical notes associated to the Encounter. Date/Time Encounter Note(s) Provider Source Feb 09, 2024 07:21 AM PSYCHIATRY NOTE: LOCAL TITLE: PSYCHIATRY [facility] STANDARD TITLE: PSYCHIATRY NOTE DATE OF NOTE: FEB 09, 2024@07:21 ENTRY DATE: FEB 09, 2024@07:21:56 AUTHOR: MAEGAN CABALLERO V EXP COSIGNER: URGENCY: STATUS: COMPLETED PSYCHIATRY [facility] Has ADDENDA [facility] - MEDICATION MANAGEMENT Name..................ALLANJOSE L RANDA Age...................53 Sex...................MALE SSN...................[id number] Service Connection.... Service Connected: 10% Rated Disabilities: LIMITED MOTION OF ANKLE (10% SC) PROBLEM LIST: 1) Arthralgia 2) Schizophrenia (SNOMED CT 17111022) 3) Psychotic Disorder NOS 4) Tobacco Use Disorder * (ICD-9-CM 305.1) 5) Schizophrenia (SNOMED CT 14377604) 6) Essential Hypertension (ICD-9-CM 401.9) 7) Health Maintenance (ICD-9-CM V65.9) 8) Primary Obesity (ICD-9-CM 278.00) 9) Other and unspecified hyperlipidemia (ICD-9-CM 272.4) 10) Vitamin D Deficiency (ICD-9-CM 268.9) 11) Other specified Hypotension (ICD-9-CM 458.8) 12) Sleep Apnea W/Hypersomnia 13) Diabetes Mellitus without mention of Complication, type II or unspecified type, OUTPATIENT MEDICATIONS: Active Outpatient Medications (including Supplies): Active Non-VA Medications Status 1) Non-VA BENZTROPINE MESYLATE 1MG TAB 1MG BY MOUTH ACTIVE TWICE A DAY 2) Non-VA CLOTRIMAZOLE 1% TOP CREAM SPARINGLY TO ACTIVE AFFECTED AREA(S) TWICE A DAY 3) Non-VA FISH OIL CAP/TAB 1 CAP/TAB BY MOUTH 6 TIMES A ACTIVE DAY 4) Non-VA HALOPERIDOL 5MG TAB 10MG BY MOUTH TWICE A DAY ACTIVE 5) Non-VA HALOPERIDOL DECANOATE 100MG/ML INJ 150MG/1.5ML ACTIVE INTRAMUSCULARLY EVERY 2 WEEKS 6) Non-VA HYDROXYZINE HCL 25MG TAB 25MG BY MOUTH ONCE A ACTIVE DAY NEEDED 7) Non-VA RISPERIDONE 4MG TAB 4MG BY MOUTH TWICE A DAY ACTIVE 8) Non-VA TRAZODONE HCL 100MG TAB 300MG BY MOUTH AT ACTIVE BEDTIME ALLERGIES: LISINOPRIL VITAL SIGNS: Height: 69 in [175.3 cm] (07/09/2022 12:08) Weight: 307 lb [139.25 kg] (07/09/2022 12:08) BMI: 45.4 Temperature: Unavailable (07/09/2022 12:08) Blood Pressure: 126/83 (07/09/2022 12:08) Pulse: 70 (07/09/2022 12:08) Respirations: 16 (07/09/2022 12:08) Patient Weight History - Last Four 1. 307.0 lbs. / 139.3 kg. on JUL 09, 2022@12:08:31 2. 289.0 lbs. / 131.1 kg. on APR 12, 2019@12:49:29 3. 273.0 lbs. / 123.8 kg. on OCTOBER 18, 2018@12:54:04 4. 285.0 lbs. / 129.3 kg. on SEP 06, 2018@09:26:07 INITIAL CONSULT: 03/22/2007 (following hospital discharge - Nancy), transfer of care 10/29/2020 (Carlos A Kothari) TRANSFER OF CARE TO THIS PROVIDER: 03/09/2022 PAST PSYCHIATRIC MEDICATION TRIALS: * lorazepam HPI/COMPLAINTS/PROBLEMS: LAST SEEN: 07/07/2023 C Caballero Reported that things were fine. No significant concerns. Does sometimes miss a dose of his medication if he fell asleep early, which causes him to feel more anxious and his chronic hallucinations to worsen, but likes having the PO medication to help calm him down. Reported general adherence with haloperidol, risperidone, benztropine BID; trazodone nightly. Sees nonVA PCP every 2-3 months with no issues. Meets [facility] weekly on Mondays. Is interested in donating plasma for additional income in the future, but not sure if paperwork will be sent to mental health to approve. Feels comfortable with current regimen and amenable to meet [facility] in 6 month for continuity of care. Just wants to be sure he has enough refills through [facility]. No other concerns today. TODAY: 02/09/2024 in person [place] Reported that things were alright. Has more quiet days especially when he takes hydroxyzine twice a day. Sometimes the voices come back but because he has the pills, he is able to keep himself busy and able to not focus on them. Continues to participate in [facility] regularly. No issues with the medication, just wants to make sure he has enough refills to last him. Denied significant concerns with adverse side effects though notes that sometimes his L hand can be tremulous (not very noticeable on AIMS) and he is well overdue for dental work (no dentures). No specific concerns today, amenable to meet in spring. Of note, discussed service writer advisor's upcoming extended leave with tentative return spring 2024. Patient aware to contact [facility] for interim concerns. MENTAL STATUS EXAM: Appearance: appears stated age, bald, glasses, poor lower dentition AAM Behavior: cooperative, polite Eye contact: fair Speech: minimal spontaneity of speech, short responses Psychomotor: no psychomotor agitation or retardation Mood: alright Affect: congruent, restricted Thought process: linear, somewhat concrete Thought content: denies suicidal ideation or homicidal ideation Perception: not seen reacting to internal stimuli, endorses chronic auditory hallucinations Cognition: AOx3 Fund of knowledge: average Insight: fair Judgment: fair SAFETY RISK ASSESSMENT: Risk factors for suicide: * chronic mental illness * Hx inpatient admissions, last 2006 * Hx overdose attempt Protective factors: * denies suicidal ideation/homicidal ideation * no history of suicide attempts * exhibits future planning * medication compliant * engaged in treatment * responsibility toward adult sons History of violence: * none Acute risk of harm to self or others is low. Chronic risk of harm to self or others is elevated 2/2 above risk factors. Pt will benefit from ongoing outpatient mental health treatment. LONG,ROHITH TOLENTINO is a 53 y/o MALE with PMH schizophrenia; DM2, HTN, KETAN. In brief, patient has a chronic history of hallucinations and paranoia with previous issues of oral medication nonadherence. He was started on HIDALGO Haldol dec ~2009 while concurrently on oral risperidone, with improvement in symptoms. Later transitioned from HIDALGO to PO in 2022 due to patient preference. Doing well on current regimen, with reported adherence to PO medication. Continues to have good insight into illness and participates with [facility]. Will continue same regimen at this time. DIAGNOSES: - schizophrenia TREATMENT PLAN: - continue haloperidol 10mg BID - previously HIDALGO Haldol dec 150mg IM q2 weeks - continue risperidone 4mg BID - continue trazodone 300mg QHS PRN insomnia - continue benztropine 1mg BID - continue hydroxyzine 25mg BID PRN anxiety medications at [facility]: [phone] FOLLOW UP: 6-7 mon F2F or [facility] SUPPORTIVE PSYCHOTHERAPY/PSYCHOEDUCATION : <16 min TIME SPENT IN ENCOUNTER (CHART REVIEW, INTERVIEW, DOCUMENTATION/ORDERS): 30 min SAFETY: is currently stable for outpatient care. Patient aware to call clinic/ED as appropriate if symptoms get worse. CONSENT: We discussed alternatives to treatment, including no treatment, as well as risks, benefits, side effects of prescribed medications. The patient understood and consented to treatment provided. Patient aware to call clinic/ED as appropriate if patient experiences side effects from medications. REMINDERS: Last F2F......................01/21 Treatment plan................ 4 C-SSRS....................... .03/21/2023 PDMP......................... .no Monitoring................... .yes - antipsychotic, reported obtaining via nonVA PCP CMP...................yes CBC...................yes A1C...................yes AIMS..................yes INSTRUCTIONS GIVEN TO PATIENT/FAMILY: * Report medication side effects promptly * No alcohol/illicit drug use with medication * Needs to be cautious with driving/use of machinery * Avoid night-time driving * If symptoms get worse, call clinic or Emergency Room as appropriate AIMS (Mental Health only): AIMS (Mental Health Instrument) The patient was evaluated for symptoms of tardive dyskinesia using the AIMS. Total score for items 1-7: 1 1. Facial and Oral Movements Muscles of facial expression, e.g., movements of forehead, eyebrows, periorbital area, cheeks. Include frowning, blinking, grimacing of upper face. None 2. Facial and Oral Movements Lips and perioral area, e.g., puckering, pouting, smacking. None 3. Facial and Oral Movements Jaw, e.g., biting, clenching, chewing, mouth opening, lateral movement. None 4. Facial and Oral Movements Tongue. Rate only increase in movement both in and out of mouth, not inability to sustain movement. None 5. Extremity Movements Upper (arms, wrists, hands, fingers). Include movements that are choreic (rapid, objectively purposeless, Irregular, spontaneous) or athetoid (slow, irregular, complex, serpentine). Do not include tremor (repetitive, regular, rhythmic movements). Minimal, may be extreme normal 6. Extremity Movements Lower (legs, knees, ankles, toes), e.g., lateral knee movement, foot tapping, heel dropping, foot squirming, Inversion and eversion of foot. None 7. Trunk Movements Neck, shoulders, hips, e.g., rocking, twisting, squirming, pelvic gyrations. Include diaphragmatic movements. None 8. Global Judgments Severity of abnormal movements. none, normal 9. Global Judgments Incapacitation due to abnormal movements. none, normal 10. Global Judgments Patient's awareness of abnormal movements. Rate only patient's report aware, no distress 11. Dental Status Current problems with teeth and/or dentures. yes 12. Dental Status Does patient usually wear dentures? no /yulissa CABALLERO MD Psychiatrist, Mental Health Signed: 02/09/2024 11:45 02/09/2024 ADDENDUM STATUS: COMPLETED Called [facility] [place]: [phone]. Provided verbal order for 6 additional 30 day refills of haloperidol, risperidone, benztropine, hydroxyzine, and trazodone. Noted that patient just requested delivery of all medications (except trazodone - reported during appt that he has excess medication at home) so he should now have enough refills until spring. /yulissa CABALLERO MD Psychiatrist, Mental Health Signed: 02/09/2024 11:47 MAEGAN CABALLERO V [facility]
--- OUTSIDE RECORDS SUMMARY | 2024-06-28 14:43 | XMS_ITS | Encounter Summary ---
Author Name [facility] [facility] [place] Address [address] [place] [address] Support Name Relationship Address Phone CLARISA BOWEN Next of Kin [address] [place], [place] [id number] CLARISA BOWEN Emergency Contact [address] [place] [address] [place] [address] JORDYN HUNG Emergency Contact Unknown [phone] Insurance Providers: All historical and current Section Date Range: From patient's date of to the date document was created. This section includes the names of all active insurance providers for the patient. Insurance Provider Type of Coverage Plan Name Start of Policy Coverage End of Policy Coverage Group Number Member ID Insurance Provider's Telephone Number Policy Whitaker's Name Patient's Relationship to Policy Whitaker [facility] (WNR) MEDICARE ADVANTAGE [facility] (WNR) May 23, 2023 [id number] JOSE LEMUS PATIENT MEDICARE (WNR) MEDICARE (M) PART B Nov 21, 2011 PART B [id number] JOSE LEMUS PATIENT MEDICARE (WNR) MEDICARE (M) PART A Feb 20, 2006 PART A [id number] [phone] JOSE LEMUS PATIENT Selected Encounter This section includes the information on record at [place] for the Encounter. 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 Date/Time Primary/Secondary Diagnosis Diagnosis Name Provider Source Jul 07, 2023 08:54 AM PRIMARY Undifferentiated schizophrenia MAEGAN CABALLERO V [facility] Plan of Treatment: Future Appointments (+ 6 months) and Future Tests (+/- 45 days) The Plan of Treatment section includes future care activities for the patient from all [place] [facility] This section includes future appointments and future orders which are active, pending or scheduled. Future Appointments This section includes appointments that were scheduled to occur 6 months from the date of the Encounter, up to a maximum of 20 appointments. The data comes from all [place] treatment facilities. Appointment Date/Time Appointment Type Appointme nt Facility Name Aug 01, 2023 11:00 AM AMBULATORY - PSYCHIATRY [facility] Aug 08, 2023 11:00 AM AMBULATORY PSYCHIATRY [facility] Aug 29, 2023 10:00 AM AMBULATORY - PSYCHIATRY [facility] Sep 12, 2023 02:00 PM AMBULATORY - PSYCHIATRY [facility] September 26, 2023 11:00 AM AMBULATORY PSYCHIATRY [facility] October 11, 2023 02:00 PM AMBULATORY - PSYCHIATRY [facility] Oct 26, 2023 11:00 AM AMBULATORY PSYCHIATRY [facility] Nov 22, 2023 10:00 AM AMBULATORY - PSYCHIATRY [facility] Nov 25, 2023 10:00 AM AMBULATORY - PSYCHIATRY [facility] Nov 28, 2023 03:00 PM AMBULATORY - PSYCHIATRY [facility] Dec 06, 2023 10:00 AM AMBULATORY - PSYCHIATRY [facility] Dec 21, 2023 01:00 PM AMBULATORY - PSYCHIATRY [facility] Jan 03, 2024 10:00 AM AMBULATORY - PSYCHIATRY [facility] Social History: Smoking Status (Most current) and Tobacco Use (All prior to encounter date) This section includes the most current, and the historical, smoking and tobacco- related health factors from the [place] facility where the Encounter took place. Current Smoking Status This section includes the most current smoking, or tobacco-related health factor, from the [place] facility where the Encounter took place. Date/Time Current Smoking Status Comment Facil ity October 14, 2017 10:33 AM TOBACCO USER OFFERED MEDS [facility] Tobacco Use History This section includes a history of the smoking, or tobacco-related health factors, that were collected on or before the date of the Encounter. The data comes from the [place] facility where the Encounter took place. Date/Time Smoking Status/Tobacco Use Comment F acility October 14, 2017 10:33 AM CURRENT TOBACCO US ER (NOT READY TO QUIT) [facility] October 14, 2017 10:33 AM TOBACCO CESSATION REFERRAL DECLINED [facility] October 14, 2017 10:33 AM TOBACCO MEDS OFFER ED BUT DECLINED [facility] October 14, 2017 10:33 AM TOBACCO USER OFFERED MEDS [facility] May 19, 2016 08:47 AM CURRENT TOBACCO USER [facility] May 19, 2016 08:47 AM TOBACCO MEDS OFFER ED BUT DECLINED [facility] Jun 06, 2015 08:37 AM CURRENT TOBACCO USER [facility] Jun 06, 2015 08:37 AM TOBACCO MEDS OFFER ED BUT DECLINED [facility] Jun 21, 2014 11:47 AM CURRENT TOBACCO USER [facility] Jun 21, 2014 11:47 AM TOBACCO MEDS OFFER ED BUT DECLINED [facility] Jul 10, 2013 11:20 AM CURRENT TOBACCO USER [facility] Jul 10, 2013 11:[address] OP SMOKING CLINIC [facility] Jun 22, 2012 01:00 PM CURRENT TOBACCO USER [facility] Jun 22, 2012 01:00 PM TOBACCO MEDS OFFER ED BUT DECLINED [facility] Jul 19, 2011 09:34 AM CURRENT TOBACCO USER [facility] Jul 19, 2011 09:34 AM TOBACCO MEDS OFFER ED BUT DECLINED [facility] Sep 07, 2010 03:28 PM CURRENT TOBACCO USER [facility] Sep 07, 2010 03:28 PM TOBACCO MEDS OFFER ED BUT DECLINED [facility] Sep 18, 2009 02:05 PM CURRENT TOBACCO USER [facility] Apr 05, 2007 10:51 AM CURRENT TOBACCO USER [facility] Apr 05, 2007 10:51 AM TOB-DECLINES SMOKI NG CESSATION REFERRAL [facility] Apr 05, 2007 10:51 AM TOBACCO MEDS OFFER ED BUT DECLINED [facility] Advance Directives: All historical and current Section Date Range: From patient's date of to the date document was created. This section includes ALL of a patient's completed or amended [place] Advance and Rescinded Directives. The entries below indicate that a directive exists for the patient, but an actual copy is not included with this document. The data comes from all [place] facilities. Date Advance Directives Provider Source Feb 17, 2007 ADVANCE DIRECTIVE ARELI DONOHUE [facility] Oct 22, 2003 ADVANCE DIRECTIVE KEYSHAWN VELARDE [facility] Encounter Notes: All associated encounter notes This section contains the clinical notes associated to the Encounter. Date/Time Encounter Note(s) Provider Source Aug 30, 2023 01:26 PM ADDENDUM: LOCAL TITLE: Addendum STANDARD TITLE: ADDENDUM DATE OF NOTE: AUG 30, 2023@13:26:06 ENTRY DATE: AUG 30, 2023@13:26:07 AUTHOR: MAEGAN CABALLERO COSIGNER: URGENCY: STATUS: COMPLETED Ok to increase hydroxyzine from 25mg daily PRN to 25mg BID PRN anxiety. Called [facility] at [phone], informed that is location for [facility] in [facility]. Patient has been filling scripts at [facility] in [place] at [phone]. Called [facility] in [place] to update prescription. Confirmed hydroxyzine prescription for 25mg BID PRN, 30 day + 5 refills. Also checked on haloperidol, risperidone, trazodone, and benztropine scripts and requested additional refills for a total of 6 month supply. /shemar/ MAEGAN CABALLERO MD Psychiatrist, Mental Health Signed: 08/30/2023 13:28 Receipt Acknowledged By: 08/30/2023 13:53 /es/ RANCHO HANNAH RN Registered Nurse, [facility] --- Original Document --- 07/07/23 PSYCHIATRY STL: [facility] - MEDICATION MANAGEMENT Name..................ALLANROHITH RANDA Age...................53 Sex...................MALE SSN...................[id number] Service Connection.... Service Connected: 10% Rated Disabilities: LIMITED MOTION OF ANKLE (10% SC) PROBLEM LIST: 1) Arthralgia 2) Schizophrenia (SNOMED CT 93883299) 3) Psychotic Disorder NOS 4) Tobacco Use Disorder * (ICD-9-CM 305.1) 5) Schizophrenia (SNOMED CT 70586880) 6) Essential Hypertension (ICD-9-CM 401.9) 7) Health [...] 03/09/2022 PAST PSYCHIATRIC MEDICATION TRIALS: * lorazepam [place] [facility]: Consent: verbally consents to a clinical video telehealth follow-up appointment. Address: [facility] [address] [place] [address] Phone number: [phone] Survey: patient alone Lock: The virtual conference room was locked. HPI/COMPLAINTS/PROBLEMS: LAST SEEN: 03/21/2023 [facility] Reported that he couldn't complain about how things have been going. Meets with [facility] weekly to check in. Thinks things have been better since switching to PO haloperidol. He is able to time the medication to when the hallucinations are worse, to calm them down. Endorsed adherence to haloperidol BID, risperidone BID, benztropine BID, trazodone at night. If the voices are still bothersome even after taking his medication, he will take a hydroxyzine which helps. Overall feels like things are fine, no concerns with mood. Just wants to make sure he has refills for [facility]. No significant concerns today. TODAY: 07/07/2023 [facility] Reported that things were fine. No significant [...] every 2-3 months with no issues. [facility]. Is interested in donating plasma for additional income in the future, but not sure if paperwork will be sent to mental health to approve. Feels comfortable with current regimen and amenable to meet F2F in 6 month for continuity of care. Just wants to be sure he has enough refills through [facility]. No other concerns today. MENTAL STATUS EXAM: Appearance: appears stated age, bald, glasses AAM Behavior: cooperative, polite Eye contact: fair Speech: minimal spontaneity of speech, short responses Psychomotor: no psychomotor agitation or retardation Mood: good Affect: congruent, restricted Thought process: linear, somewhat [...] good insight into illness and participates with [facility]. Will continue same regimen at this time. DIAGNOSES: - schizophrenia TREATMENT PLAN: - continue haloperidol 10mg BID - previously HIDALGO Haldol dec 150mg IM q2 weeks - continue risperidone 4mg BID - continue trazodone 300mg QHS - continue benztropine 1mg BID - continue hydroxyzine 25mg daily PRN anxiety medications at [facility]: [phone] FOLLOW UP: 6 mon F2F SUPPORTIVE PSYCHOTHERAPY/PSYCHOEDUCAT ION: <16 min TIME SPENT IN ENCOUNTER (CHART REVIEW, INTERVIEW, DOCUMENTATION/ORDERS): 30 min SAFETY: [place] is currently stable for outpatient care. Patient aware to call clinic/ED as appropriate if symptoms get worse. CONSENT: We discussed alternatives to treatment, including no treatment, as well as risks, benefits, side effects of prescribed medications. The patient understood and consented to treatment provided. Patient aware to call clinic/ED as appropriate if patient experiences side effects from medications. REMINDERS: Last F2F......................0 07/09/2022 Treatment plan................2023 C-SSRS.................... ....03/21/2023 PDMP...................... ....no Monitoring................ ....yes - antipsychotic, reported obtaining via nonVA PCP CMP...................yes CBC...................yes A1C...................yes AIMS..................yes INSTRUCTIONS GIVEN TO PATIENT/FAMILY: * Report medication side effects promptly * No alcohol/illicit drug use with medication * Needs to be cautious with driving/use of machinery * Avoid night-time driving * If symptoms get worse, call clinic or Emergency Room as appropriate /yulissa CABALLERO MD Psychiatrist, Mental Health Signed: 07/07/2023 08:51 08/29/2023 ADDENDUM STATUS: COMPLETED [place] calls today at the request of [facility], he indicates that they recommended he contact in regard to current script of Hydroxyzine. [place] is currently prescribed: hydroxyzine 25mg daily PRN anxiety He reports that he has been taking this two times per day at 10:00am and 5pm. If approved, he is requesing new script at increased dose be called in to [facility] at [phone]. /shemar/ RANCHO HANNAH RN Registered Nurse, [facility] Signed: 08/29/2023 16:18 Receipt Acknowledged By: 08/30/2023 13:26 /yulissa CABALLERO MD Psychiatrist, Mental Health MAEGAN CABALLERO V [facility] Aug 29, 2023 04:10 PM ADDENDUM: LOCAL TITLE: Addendum STANDARD TITLE: ADDENDUM DATE OF NOTE: AUG 29, 2023@16:10:30 ENTRY DATE: AUG 29, 2023@16:10:30 AUTHOR: RANCHO HANNAH COSIGNER: URGENCY: STATUS: COMPLETED calls today at the request of [facility], he indicates that they recommended he contact MD in regard to current script of Hydroxyzine. [place] is currently prescribed: hydroxyzine 25mg daily PRN anxiety He reports that he has been taking this two times per day at 10:00am and 5pm. If approved, he is requesing new script at increased dose be called in to [facility] at [phone]. /es/ RANHCO HANNAH RN Registered Nurse, [facility] Signed: 08/29/2023 16:18 Receipt Acknowledged By: 08/30/2023 13:26 /es/ MAEGAN CABALLERO MD Psychiatrist, Mental Health --- Original Document --- 07/07/23 PSYCHIATRY STL: [facility] - MEDICATION MANAGEMENT Name..................ROHITH LEMUS Age...................53 Sex...................MALE SSN...................[id number] Service Connection.... Service Connected: 10% Rated Disabilities: LIMITED MOTION OF ANKLE (10% SC) PROBLEM LIST: 1) Arthralgia 2) Schizophrenia (SNOMED CT 15507931) 3) Psychotic Disorder NOS 4) Tobacco Use Disorder * (ICD-9-CM 305.1) 5) Schizophrenia (SNOMED CT 67133919) 6) Essential Hypertension (ICD-9-CM 401.9) 7) Health [...] 03/09/2022 PAST PSYCHIATRIC MEDICATION TRIALS: * lorazepam [place] [facility]ALTH: Consent: [place] verbally consents to a clinical video telehealth follow-up appointment. Address: [address] [place] [address] Phone number: [phone] Survey: patient alone Lock: The virtual conference room was locked. HPI/COMPLAINTS/PROBLEMS: LAST SEEN: 03/21/2023 [facility] Reported that he couldn't complain about how things have been going. Meets with [facility] weekly to check in. Thinks things have been better since switching to PO haloperidol. He is able to time the medication to when the hallucinations are worse, to calm them down. Endorsed adherence to haloperidol BID, risperidone BID, benztropine BID, trazodone at night. If the voices are still bothersome even after taking his medication, he will take a hydroxyzine which helps. Overall feels like things are fine, no concerns with mood. Just wants to make sure he has refills for [facility]. No significant concerns today. TODAY: 07/07/2023 [facility] Reported that things were fine. No significant [...] every 2-3 months with no issues. Meets [facility] weekly on Mondays. Is interested in donating plasma for additional income in the future, but not sure if paperwork will be sent to mental health to approve. Feels comfortable with current regimen and amenable to meet F in 6 month for continuity of care. Just wants to be sure he has enough refills through [facility]. No other concerns today. MENTAL STATUS EXAM: Appearance: appears stated age, bald, glasses AAM Behavior: cooperative, polite Eye contact: fair Speech: minimal spontaneity of speech, short responses Psychomotor: no psychomotor agitation or retardation Mood: good Affect: congruent, restricted Thought process: linear, somewhat [...] good insight into illness and participates with [facility]. Will continue same regimen at this time. DIAGNOSES: - schizophrenia TREATMENT PLAN: - continue haloperidol 10mg BID - previously HIDALGO Haldol dec 150mg IM q2 weeks - continue risperidone 4mg BID - continue trazodone 300mg QHS - continue benztropine 1mg BID - continue hydroxyzine 25mg daily PRN anxiety medications at [facility]: [phone] FOLLOW UP: 6 mon F2F SUPPORTIVE PSYCHOTHERAPY/PSYCHOEDUCAT ION: <16 min TIME SPENT IN ENCOUNTER (CHART REVIEW, INTERVIEW, DOCUMENTATION/ORDERS): 30 min SAFETY: [place] is currently stable for outpatient care. Patient aware to call clinic/ED as appropriate if symptoms get worse. CONSENT: We discussed alternatives to treatment, including no treatment, as well as risks, benefits, side effects of prescribed medications. The patient understood and consented to treatment provided. Patient aware to call clinic/ED as appropriate if patient experiences side effects from medications. REMINDERS: Last F2F......................0 07/09/2022 Treatment plan................2023 C-SSRS.................... ....03/21/2023 PDMP...................... ....no Monitoring................ ....yes - antipsychotic, reported obtaining via nonVA PCP CMP...................yes CBC...................yes A1C...................yes AIMS..................yes INSTRUCTIONS GIVEN TO PATIENT/FAMILY: * Report medication side effects promptly * No alcohol/illicit drug use with medication * Needs to be cautious with driving/use of machinery * Avoid night-time driving * If symptoms get worse, call clinic or Emergency Room as appropriate /shemar/ MAEGAN CABALLERO MD Psychiatrist, Mental Health Signed: 07/07/2023 08:51 08/30/2023 ADDENDUM STATUS: UNSIGNED You may not VIEW this UNSIGNED Addendum. RANCHO HANNAH [facility] Jul 07, 2023 07:12 AM PSYCHIATRY NOTE: LOCAL TITLE: PSYCHIATRY STL STANDARD TITLE: PSYCHIATRY NOTE DATE OF NOTE: JUL 07, 2023@07:12 ENTRY DATE: JUL 07, 2023@07:12:09 AUTHOR: MAEGAN CABALLERO V EXP COSIGNER: URGENCY: STATUS: COMPLETED PSYCHIATRY STL Has [facility]DA [facility] - MEDICATION MANAGEMENT Name..................ROHITH LEMUS Age...................53 Sex...................MALE SSN...................[id number] Service Connection.... Service Connected: 10% Rated Disabilities: LIMITED MOTION OF ANKLE (10% SC) PROBLEM LIST: 1) Arthralgia 2) Schizophrenia (SNOMED CT 97869947) 3) Psychotic Disorder NOS 4) Tobacco Use Disorder * (ICD-9-CM 305.1) 5) Schizophrenia (SNOMED CT 99517917) 6) Essential Hypertension (ICD-9-CM 401.9) 7) Health [...] 03/09/2022 PAST PSYCHIATRIC MEDICATION TRIALS: * lorazepam [facility]: Consent: verbally consents to a clinical video telehealth follow-up appointment. Address: [address] [place] [address] [place] [address] Phone number: [phone] Survey: patient alone Lock: The virtual conference room was locked. HPI/COMPLAINTS/PROBLEMS: LAST SEEN: 03/21/2023 [facility] Reported that he couldn't complain about how things have been going. Meets with [facility] weekly to check in. Thinks things have been better since switching to PO haloperidol. He is able to time the medication to when the hallucinations are worse, to calm them down. Endorsed adherence to haloperidol BID, risperidone BID, benztropine BID, trazodone at night. If the voices are still bothersome even after taking his medication, he will take a hydroxyzine which helps. Overall feels like things are fine, no concerns with mood. Just wants to make sure he has refills for [facility]. No significant concerns today. TODAY: 07/07/2023 [facility] Reported that things were fine. No [...] every 2-3 months with no issues. Meets [facility] weekly on Mondays. Is interested in donating plasma for additional income in the future, but not sure if paperwork will be sent to mental health to approve. Feels comfortable with current regimen and amenable to meet F in 6 month for continuity of care. Just wants to be sure he has enough refills through [facility]. No other concerns today. MENTAL STATUS EXAM: Appearance: appears stated age, bald, glasses AAM Behavior: cooperative, polite Eye contact: fair Speech: minimal spontaneity of speech, short responses Psychomotor: no psychomotor agitation or retardation Mood: good Affect: congruent, restricted Thought process: linear, somewhat [...] good insight into illness and participates with [facility]. Will continue same regimen at this time. DIAGNOSES: - schizophrenia TREATMENT PLAN: - continue haloperidol 10mg BID - previously HIDALGO Haldol dec 150mg IM q2 weeks - continue risperidone 4mg BID - continue trazodone 300mg QHS - continue benztropine 1mg BID - continue hydroxyzine 25mg daily PRN anxiety medications at [facility]: [phone] FOLLOW UP: 6 mon F2F SUPPORTIVE PSYCHOTHERAPY/PSYCHOEDUCAT ION: <16 min TIME SPENT IN ENCOUNTER (CHART [...] experiences side effects from medications. REMINDERS: Last F2F......................0 07/09/2022 Treatment plan................2023 C-SSRS.................... ....03/21/2023 PDMP...................... ....no Monitoring................ ....yes - antipsychotic, reported obtaining via nonVA PCP CMP...................yes CBC...................yes A1C...................yes AIMS..................yes INSTRUCTIONS GIVEN TO PATIENT/FAMILY: * Report medication side effects promptly * No alcohol/illicit drug use with medication * Needs to be cautious with driving/use of machinery * Avoid night-time driving * If symptoms get worse, call clinic or Emergency Room as appropriate /shemar/ MAEGAN CABALLERO MD Psychiatrist, Mental Health Signed: 07/07/2023 08:51 08/29/2023 ADDENDUM STATUS: COMPLETED [place] calls today at the request of [facility], he indicates that they recommended he contact MD in regard to current script of Hydroxyzine. [place] is currently prescribed: hydroxyzine 25mg daily PRN anxiety He reports that he has been taking this two times per day at 10:00am and 5pm. If approved, he is requesing new script at increased dose be called in to [facility] at [phone]. /shemar/ RANCHO HANNAH RN Registered Nurse, [facility] Signed: 08/29/2023 16:18 Receipt Acknowledged By: 08/30/2023 13:26 /yulissa CABALLERO MD Psychiatrist, Mental Health 08/30/2023 ADDENDUM STATUS: COMPLETED Ok to increase hydroxyzine from 25mg daily PRN to 25mg BID PRN anxiety. Called [facility] at [phone], informed that is location for [facility] in [facility]. Patient has been filling scripts at [facility] in [place] at [phone]. Called [facility] in [place] to update prescription. Confirmed hydroxyzine prescription for 25mg BID PRN, 30 day + 5 refills. Also checked on haloperidol, risperidone, trazodone, and benztropine scripts and requested additional refills for a total of 6 month supply. /shemar/ MAEGAN CABALLERO MD Psychiatrist, Mental Health Signed: 08/30/2023 13:28 Receipt Acknowledged By: * AWAITING SIGNATURE * RANCHO HANNAH ANH V [facility]
--- OUTSIDE RECORDS SUMMARY | 2024-06-28 14:44 | XMS_ITS | Referral Summary ---
Author Organization [facility] Address [address] [place] [address] Care Team Providers Care [place] Name Role Phone Timbo Gregg MD Primary Care Provider Oliverio Ladd APRN-RIVET CATCHER Unavailable [phone] Source Comments [facility],non-owned Affiliates and Associated Physician Practices is amultiple site organization consisting of ambulatory clinics and hospital sitesin [place], [place], [place] and [place]. This disclosure is being madepursuant to the Care Everywhere program and may not contain all information available regarding this patient. Last updated 18.[facility] Encounters Date Type Department Care Team Description 06/13/2024 2:55 PM SODA FOUNTAIN CLERK - 06/13/2024 11:59 PM SODA FOUNTAIN CLERK Hospital Encounter [facility] Imaging Services [address] [place] [address] Timbo Gregg MD Discharge Disposition: Home or Self Care 06/13/2024 1:20 PM SODA FOUNTAIN CLERK Office Visit [facility] - Rheumatology [address], [address] [place] [id number] Panchito Finnegan DO Polyarthralgia (Primary Dx); Positive [...] 06/13/2024 Discontinued( List Clean-Up) Fish Oil-Cholecalcifer ol (Jasper-3 Fish Oil/Vitamin D3) [id number] MG-UNIT CAPS Take 1,000 mg by mouth [...] includes: nutrition counseling and exercise counseling. Other general helper (current) drug therapy 10/21/2022 Microalbuminuria 08/26/2021 10/21/2022 [...] Comments Blood Pressure 124/80 06/13/2024 1:11 PM SODA FOUNTAIN CLERK Pulse 70 06/13/2024 1:11 PM SODA FOUNTAIN CLERK Temperature 36.1 C (97 F) 06/13/2024 1:11 PM SODA FOUNTAIN CLERK Respiratory Rate 16 06/13/2024 1:11 PM SODA FOUNTAIN CLERK Oxygen Saturation 95% 06/13/2024 1:11 PM SODA FOUNTAIN CLERK Inhaled Oxygen Concentration - - Weight 129.3 kg (285 lb) 06/13/2024 1:11 PM SODA FOUNTAIN CLERK Height 175.3 cm (5' 9 ) 06/13/2024 1:11 PM SODA FOUNTAIN CLERK Body Mass Index 42.09 06/13/2024 1:11 PM SODA FOUNTAIN CLERK Plan of Treatment Upcoming Encounters Date Type Department Care Team (Late st Contact Info) Description 07/03/2024 11:00 AM SODA FOUNTAIN CLERK Office Visit [facility] - Rheumatology [address], [address] [place] [address] Panchito Finnegan, [address] [place] [address] Procedures Procedure Name Priority Date/Time Associated Diagnosis Comments XR PELVIS W BILAT HIP 1VW Routine 06/13/2024 3:34 PM SODA FOUNTAIN CLERK Chronic left hip pain XR KNEE BILAT 2VW OR LESS Routine 06/13/2024 3:34 PM SODA FOUNTAIN CLERK Chronic pain of left knee XR LUMBAR SPINE 4VW OR MORE Routine 06/13/2024 3:34 PM SODA FOUNTAIN CLERK Chronic midline low back pain without sciatica ERYTHROCYTE SEDIMENTATION RATE Routine 06/13/2024 2:38 PM SODA FOUNTAIN CLERK Polyarthralgia LUPUS ANTICOAGULANT PANEL W RFLX Routine 06/13/2024 2:38 PM SODA FOUNTAIN CLERK Positive TRE (antinuclear antibody) CARDIOLIPIN ANTIBODY IGA/IGG/IGM PANEL Routine 06/13/2024 2:38 PM SODA FOUNTAIN CLERK Positive TRE (antinuclear antibody) TRE PANEL COMPREHENSIVE Routine 06/13/2024 2:38 PM SODA FOUNTAIN CLERK Positive TRE (antinuclear antibody) TRE BLOOD SCREEN W/REFLEX TITER Routine 06/13/2024 2:38 PM SODA FOUNTAIN CLERK Positive TRE (antinuclear antibody) RIBOSOMAL P PROTEIN ANTIBODY Routine 06/13/2024 2:37 PM SODA FOUNTAIN CLERK Positive TRE (antinuclear antibody) COMPLEMENT C3 C4 PANEL Routine 2:37 PM SODA FOUNTAIN CLERK Positive TRE (antinuclear antibody) from Last 3 Months Results * XR Pelvis W Bilat Hip 1Vw (06/13/2024 3:34 PM SODA FOUNTAIN CLERK) Anatomical Region Laterality Modality Pelvis Radiographic Marissa ging 06/13/2024 5:09 PM SODA FOUNTAIN CLERK Impressions 06/13/2024 5:12 PM SODA FOUNTAIN CLERK IMPRESSION: 1. No significant hip findings. 2. 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 Indication: M25.552: Pain in left hip G89.29: Other chronic pain Additional History: COMPARISON: None. Findings: The femoral acetabular joint spaces are symmetric and preserved. There are small bilateral acetabular spurs. Pubic symphysis and sacroiliac joints are unremarkable. Incidentally noted are bilateral articulations between the L5 [...] Bilat 2Vw or Less (06/13/2024 3:34 PM SODA FOUNTAIN CLERK) Anatomical Region Laterality Modality Lower Extremity Radiographic Marissa ging 06/13/2024 5:12 PM SODA FOUNTAIN CLERK Impressions 06/13/2024 5:13 PM SODA FOUNTAIN CLERK IMPRESSION: 1. No acute findings. 2. Mild bilateral knee primary osteoarthritis > Interpreting Provider: Sarah Mchugh MD on 06/13/2024 5:13 PM Narrative 06/13/2024 5:13 PM SODA FOUNTAIN CLERK PROCEDURE: XR KNEE BILAT 2VW OR LESS DATE/TIME OF EXAM: 06/13/2024 3:35 PM CLINICAL INFORMATION: None relevant/not provided if blank. Indication: M25.562: Pain in left knee G89.29: Other chronic pain Additional History: COMPARISON: None. FINDINGS: Findings: In both knees there is slight narrowing of the medial compartment suggesting some degree of cartilage loss. The remaining knee compartments are unremarkable and there [...] Spine 4Vw or More (06/13/2024 3:34 PM SODA FOUNTAIN CLERK) Anatomical Region Laterality Modality Spine Radiographic Marissa ging 06/13/2024 5:08 PM SODA FOUNTAIN CLERK Impressions 06/13/2024 5:09 PM SODA FOUNTAIN CLERK IMPRESSION: 1. L3-L4 grade 1-2 degenerative subluxation > Interpreting Provider: Sarah Mchugh MD on 06/13/2024 5:09 PM Narrative 06/13/2024 5:09 PM SODA FOUNTAIN CLERK PROCEDURE: XR LUMBAR SPINE 4VW OR MORE DATE/TIME OF EXAM: 06/13/2024 3:35 PM CLINICAL INFORMATION: None relevant/not provided if blank. Indication: M54.50: Low back pain, unspecified G89.29: Other chronic pain Additional History: COMPARISON: None. Findings: At L3-L4 there is 9 mm of grade 1-2 anterior subluxation of L3 relative to L4 due to chronic facet arthropathy. Facet hypertrophy is noted between L2 and S1. There is no fracture and [...] CARDIOLIPIN ANTIBODY IGA/IGG/IGM PANEL (06/13/2024 2:38 PM SODA FOUNTAIN CLERK) Cardiolipin Antibody IgG <9 0 - 14 GPL U/mL [facility] ACCOUNT BILL Comment: Negative: <15 Indeterminate: 15 - 20 Low-Med Positive: >20 - 80 High Positive: >80 Cardiolipin Antibody IgM <9 0 - 12 MPL U/mL [facility] ACCOUNT BILL Comment: Negative: <13 Indeterminate: 13 - 20 Low-Med Positive: >20 - 80 High Positive: >80 Cardiolipin Antibody IgA <9 0 - 11 APL U/mL [facility] ACCOUNT BILL Comment: Negative: <12 Indeterminate: 12 - 20 Low-Med Positive: >20 - 80 High Positive: >80 Blood BLOOD SPECIMEN / Unknown 06/13/2024 2:38 PM SODA FOUNTAIN CLERK 06/13/2024 Narrative [facility] ACCOUNT BILL - 06/14/2024 5:07 PM SODA FOUNTAIN CLERK Performed at: - [facility] [id number] Taxi Truck Driver: Tacho Shoemaker PhD, Phone: [phone] Panchito Finnegan DO LAB - SEROLOGY ORDER EVI [facility] ACCOUNT BILL [address] [place] [address] * TRE PANEL COMPREHENSIVE (06/13/2024 2:38 PM SODA FOUNTAIN CLERK) Anti-dsDNA Quantitative <1 0 - 9 IU/mL [facility] ACCOUNT BILL Comment: Negative <5 Equivocal 5 - 9 Positive >9 DRY YARD WORKER Antibody <0.2 0.0 - 0.9 AI [facility] ACCOUNT BILL Melo (DOMENICO) Antibody <0.2 0.0 - 0.9 AI [facility] ACCOUNT BILL Antiscleroderma-70 Antibody 0.2 0.0 - 0.9 AI [facility] ACCOUNT BILL Sjogren's Antibodies (SSA) <0.2 0.0 - 0.9 AI [facility] ACCOUNT RICHARD Sjogren's Antibodies (SSB) <0.2 0.0 - 0.9 AI [facility] ACCOUNT BILL Antichromatin Antibodies <0.2 0.0 - 0.9 AI [facility] ACCOUNT RICHARD Josefina-1 Antibody <0.2 0.0 - 0.9 AI [facility] ACCOUNT RICHARD Centromere B Antibody <0.2 0.0 - 0.9 AI [facility] ACCOUNT RICHARD See Below Comment [facility] ACCOUNT BILL Comment: Autoantibody Disease Association Condition Frequency --------- Antinuclear Antibody, SLE, mixed connective Direct (TRE-D) tissue diseases --------- dsDNA SLE 40 - 60% --------- Chromatin Drug induced SLE 90% SLE 48 - 97% --------- SSA (Ro) SLE 25 - 35% Sjogren's Syndrome 40 - 70% Lupus 100% --------- SSB (La) SLE 10% Sjogren's Syndrome 30% --------- Sm (anti-Melo) SLE 15 - 30% --------- DRY YARD WORKER Mixed Connective Tissue Disease 95% (U1 nRNP, SLE 30 - 50% anti-ribonucleoprotein) Polymyositis and/or Dermatomyositis 20% --------- Scl-70 (antiDNA Scleroderma (diffuse) 20 - 35% topoisomerase) Crest 13% --------- Josefina-1 Polymyositis and/or Dermatomyositis 20 - 40% --------- Centromere B Scleroderma - Crest variant 80% Blood BLOOD SPECIMEN / Unknown 06/13/2024 2:38 PM SODA FOUNTAIN CLERK 06/13/2024 Narrative [facility] ACCOUNT BILL - 06/14/2024 3:08 PM SODA FOUNTAIN CLERK Performed at: 01 - [facility] [id number] Tax[employer] Truck Driver: Tacho Shoemaker PhD, Phone: [phone] Panchito Finnegan DO LAB - SEROLOGY ORDER EVI [facility] ACCOUNT BILL [address] [place] [address] * LUPUS ANTICOAGULANT PANEL W RFLX (06/13/2024 2:38 PM SODA FOUNTAIN CLERK) PTT-LA 37.3 0.0 - 43.5 sec [facility] ACCOUNT BILL dRVVT 30.7 0.0 - 47.0 sec [facility] ACCOUNT BILL Interpretation Comment: [facility] ACCOUNT BILL Comment:No lupus anticoagula nt was detected. Blood BLOOD SPECIMEN / Unknown 06/13/2024 2:38 PM SODA FOUNTAIN CLERK 06/13/2024 Narrative [facility] ACCOUNT BILL - 06/14/2024 7:07 PM SODA FOUNTAIN CLERK Performed at: - [facility] [address] [id number] Taxi Truck Driver: Jorge Romero MD, Phone: [phone] Panchito Finnegan DO LAB - HEMATOLOGY ORD ERABLES Performing Organization Address [facility] Co de Phone Number [facility] ACCOUNT BILL [address] [place] [address] * TRE BLOOD SCREEN W/REFLEX TITER (06/13/2024 2:38 PM SODA FOUNTAIN CLERK) TRE Negative [facility] ACCOUNT BILL Comment: Negative <1:80 Borderline 1:80 Positive >1:80 ICAP nomenclature: AC-0 For more information about Hep-2 cell patterns use ANApatterns.org, the official website for the International Consensus on Antinuclear Antibody (TRE) Patterns (ICAP). Blood BLOOD SPECIMEN / Unknown 06/13/2024 2:38 PM SODA FOUNTAIN CLERK 06/13/2024 Narrative [facility] ACCOUNT BILL - 06/15/2024 7:07 PM SODA FOUNTAIN CLERK Performed at: - [facility] [place] [address] [place], [place] [id number] Tax[employer] Truck Driver: Tacho Shoemaker PhD, Phone: [phone] Panchito Finnegan DO LAB - CHEMISTRY ORDE RABLES Performing Organization Address City/[facility]/ZIP Co de Phone Number [facility] ACCOUNT BILL [address] [place] [address] * (ABNORMAL) SED RATE AUTO (ESR) (06/13/2024 2:38 PM SODA FOUNTAIN CLERK) Erythrocyte Sedimentation Rate Westergren 44(H) 0 - 30 mm/hr [facility] ACCOUNT BILL Blood BLOOD SPECIMEN / Unknown 06/13/2024 2:38 PM SODA FOUNTAIN CLERK 06/13/2024 Narrative [facility] ACCOUNT BILL - 06/14/2024 7:09 AM SODA FOUNTAIN CLERK Performed at: [address] [place] [id number] Tax[employer] Driver: Tacho Shoemaker PhD, Phone: [phone] Panchito Finnegan DO LAB - HEMATOLOGY ORD ERABLES Performing Organization Address [facility] Co de Phone Number [facility] ACCOUNT BILL [address] [place] [address] * RIBOSOMAL P PROTEIN ANTIBODY (06/13/2024 2:37 PM SODA FOUNTAIN CLERK) Pathologist [facility] Antiribosomal P Antibody <0.2 0.0 - 0.9 AI [facility] ACCOUNT BILL Blood BLOOD SPECIMEN / Unknown 06/13/2024 2:37 PM SODA FOUNTAIN CLERK 06/13/2024 Narrative [facility] ACCOUNT BILL - 06/14/2024 1:08 PM SODA FOUNTAIN CLERK Performed at: [address] [place] [id number] Tax[employer] Driver: Tacho Shoemaker PhD, Phone: [phone] Panchito Finnegan DO LAB - CHEMISTRY ORDE RABLES Performing Organization Address [facility] Co de Phone Number [facility] ACCOUNT BILL [address] [place] [address] * (ABNORMAL) COMPLEMENT C3 C4 PANEL (06/13/2024 2:37 PM SODA FOUNTAIN CLERK) Complement C3 178(H) 82 - 167 mg/dL [facility] ACCOUNT BILL Complement C4 41(H) 12 - 38 mg/dL [facility] ACCOUNT BILL Blood BLOOD SPECIMEN / Unknown 06/13/2024 2:37 PM SODA FOUNTAIN CLERK 06/13/2024 Narrative [facility] ACCOUNT BILL - 06/14/2024 1:08 PM SODA FOUNTAIN CLERK Performed at: - [facility] [address] [place], [place] [id number] Taxi Truck Driver: Tacho Shoemaker PhD, Phone: [phone] Panchito Finnegan DO LAB - CHEMISTRY BECKI BUTT [facility] ACCOUNT BILL [address] [place] [address] from Last 3 Months Care Teams [place] Relationship Specialty Start Date End Date Timbo Gregg MD [address] [place] [phone] PCP - General Internal Medicine 02/15/24 Oliverio Ladd APRN-RIVET CATCHER [address] [place] [address] [place] [address] Nurse Practitioner Nurse Practitioner Family 02/17/24
--- OUTSIDE RECORDS SUMMARY | 2024-06-28 14:44 | XMS_ITS | Continuity of Care Document ---
Author Name [facility] Organization [facility] Care Team Providers Care Strip Catcher Name Role Phone [facility] Unavailable Unavailable Problems Combined list of problems from Department of [facility] and [facility] Affairs facilities. It does not include entries that were removed or entered in error. Problem Status Onset Date Problem Type Date of Resolution Comments Source Arthralgia Active Condition [facility] Diabetes Mellitus without mention of Complication, type II or unspecified type, Active Condition [facility] Essential Hypertension (ICD-9-CM 401.9) Active Condition [facility] Health Maintenance (ICD-9-CM V65.9) Active Condition [facility] Nicotine dependence (SNOMED CT 17124872) Active Condition [facility] Other and unspecified hyperlipidemia (ICD-9-CM 272.4) Active Condition [facility] Other specified Hypotension (ICD-9-CM 458.8) Active Condition [facility] Primary Obesity (ICD-9-CM 278.00) Active Condition [facility] Psychotic Disorder NOS Active Condition [facility] Schizophrenia (SNOMED CT 10209817) Active Condition [facility] Sleep Apnea W/Hypersomnia Active Condition [facility] Vitamin D Deficiency (ICD-9-CM 268.9) Active Condition [facility] Diabetes Mellitus Type I with Ketoacidosis Inactive Condition 10/08/2011 [facility] Diagnosis: ICD-10-CM 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 Medication Details Route Status Patient Instructions Prescription Expires Prescription Number Last Dispense Date Ordering Provider Order Date Order Qty Source BENZTROPINE MESYLATE 1MG TAB TAKE ONE TABLET BY MOUTH TWICE A DAY ORAL ACTIVE CARLSON,MAEGAN V 2021 [facility] CLOTRIMAZOL E 1% CREAM,TOP APPLY SPARINGL Y TO AFFECTED AREA(S) TWICE A DAY TOPICA L ACTIVE Carolin SINGH 2013 [facility] FISH OIL CAP/TAB TAKE 1 CAP/TAB BY MOUTH 6 TIMES A DAY ORAL ACTIVE NIESHA ROGEL F 2012 [facility] HALOPERIDOL 5MG TAB TAKE TWO TABLETS BY MOUTH TWICE A DAY ORAL ACTIVE CARLSON,MAEGAN V 2022 [facility] HALOPERIDOL DECANOATE 100MG/ML INJ INJECT 150MG/1. 5ML INTRAMUS CULARLY EVERY 2 WEEKS INTRAM CUBEL R JOSE ECHEVERRIA 2020 [facility] HYDROXYZINE HCL 25MG TAB TAKE ONE TABLET BY MOUTH ONCE A DAY NEEDED ORAL ACTIVE CARLSON,MAEGAN V 2022 [facility] RISPERIDONE 4MG TAB TAKE ONE TABLET BY MOUTH TWICE A DAY ORAL ACTIVE CARLSON,MAEGAN V 2021 [facility] RISPERIDONE 4MG TAB TAKE ONE TABLET BY MOUTH TWICE A DAY ORAL ACTIVE CARLSON,MAEGAN V 2021 [facility] TRAZODONE HCL 100MG TAB TAKE THREE TABLETS BY MOUTH AT BEDTIME ORAL ACTIVE CARLSON,MAEGAN V 2021 [facility] Allergies, Adverse Reactions, Alerts Combined list of allergies from Department of Defense and Veterans Affairs facilities. It does not include entries that were removed or entered in error. Substance Category Reaction Severity Reaction type Status Date Reported Comments Source Lisinopril Drug allergy (disorder) Upper Respiratory Tract Obstruction , Angioneurot ic edema of larynx, Facial swelling, Edema Of The Tongue active 5 [facility] LISINOPRIL Propensity to adverse reactions to drug (finding) Upper respiratory tract obstruction , Angioneurot ic edema of larynx, Facial swelling, Edema of the tongue SEVERE active 5 [facility] Immunizations Combined list of available immunizations from the Department of [facility] and [facility] facilities. Immunization Series Date Given Administered By Site Reaction Lot Number CVX Code Drug Herpetologist Status Comments Source INFLUENZA, SEASONAL, INJECTABLE, PRESERVATIVE FREE 2014 140 complet ed [facility] HEP A-HEP B 2013 104 complet ed [facility] INFLUENZA, UNSPECIFIED FORMULATION 2012 88 complet ed [facility] PNEUMOCOCCAL, UNSPECIFIED FORMULATION 2012 109 complet ed [facility] INFLUENZA, UNSPECIFIED FORMULATION 2011 88 complet ed [facility] HEP A-HEP B 2010 104 complet ed [facility] HEP A-HEP B 2010 104 complet ed [facility] TDAP 2009 115 complet ed Left Deltoid [facility] Vital Signs Combined list of inpatient and outpatient Vital Signs from [facility] of [facility], ranging from 12 months to all on record, depending upon the facility. Vital Sign Value Date Comments Source SYSTOLIC BLOOD PRESSURE 129 02/09/2024 11:05:58 [facility] DIASTOLIC BLOOD PRESSURE 86 02/09/2024 11:05:58 [facility] PULSE OXIMETRY 93 02/09/2024 11:05:58 [facility] WEIGHT 300 02/09/2024 11:05:58 [facility] BMI 44 kg/m2 02/09/2024 11:05:58 [facility] PAIN 4 02/09/2024 11:05:58 [facility] HEIGHT 69 02/09/2024 11:05:58 [facility] TEMPERATURE 98.1 02/09/2024 11:05:58 [facility] PULSE 87 02/09/2024 11:05:58 [facility] RESPIRATION 22 02/09/2024 11:05:58 [facility] Encounters Combined list of: 1) Encounters from Department of [facility] Affairs facilities going backup to the last 18 months, not all [place] inpatient encounters are included; 2) Encounters from the Department of [facility] facilities going backup to 280 months. Location Location Details Encounter Type Encounter Number Reason For Visit Attending Provider ADM Date DC Date Status Disposition Source [facility] PSYTX W PT 60 MINUTES [id number] Diagnos is: ICD-10- CM F20.3 Undiffe rentiat ed schizop hrenia FINTEL,TRA CEY R 12/30 [facility] PSYTX W PT 60 MINUTES [id number] [id number] Diagnos is: ICD-10- CM F20.9 Schizop hrenia, unspeci fied FINTEL,TRA CEY R 01/03 [facility] PSYTX W PT 60 MINUTES [id number] [id number] Diagnos is: ICD-10- CM F20.9 Schizop hrenia, unspeci fied FINTEL,TRA CEY R 01/11 [facility] PSYTX W PT 60 MINUTES [id number] [id number] Diagnos is: ICD-10- CM F20.9 Schizop hrenia, unspeci fied FINTEL,TRA CEY R 01/17 [facility] Outpatient Encounter [id number] FINTEL,TRA CEY R 01/27 [facility] PSYTX W PT 60 MINUTES [id number] [id number] Diagnos is: ICD-10- CM F20.3 Undiffe rentiat ed schizop hrenia FINTEL,TRA CEY R 01/31 [facility] N [facility] PSYTX W PT 60 MINUTES [id number] [id number] Diagnos is: ICD-10- CM F20.9 Schizop hrenia, unspeci fied FINTEL,TRA CEY R 02/21 [facility] Outpatient Encounter [id number] 03/14 [facility] N [facility] PSYTX W PT 60 MINUTES [id number] [id number] Diagnos is: ICD-10- CM F20.9 Schizop hrenia, unspeci fied FINTEL,TRA CEY R 03/14 [facility] OFFICE O/P EST LOW 20-29 MIN [id number] Diagnos is: ICD-10- CM F20.3 Undiffe rentiat ed schizop hrenia CARLSON,MAEGAN V 03/21 [facility] PSYTX W PT 60 MINUTES [id number] Diagnos is: ICD-10- CM F20.9 Schizop hrenia, unspeci fied FINTEL,TRA CEY R 03/21 [facility] N [facility] PSYTX W PT 60 MINUTES [id number] [id number] Diagnos is: ICD-10- CM F20.3 Undiffe rentiat ed schizop hrenia FINTEL,REYNOLD CEY R 03/28 [facility] Outpatient Encounter [id number] REYNOLD GONZALEZ CEY R 04/20 [facility] PSYTX W PT 60 MINUTES [id number] [id number] Diagnos is: ICD-10- CM F20.3 Undiffe rentiat ed schizop lisa GNOZALEZ,TRA CEY R 04/29 [facility] PSYTX W PT 60 MINUTES [id number] [id number] Diagnos is: ICD-10- CM F20.3 Undiffe rentiat ed robertop lisa GONZALEZ,TRA CEY R 05/02 [facility] Outpatient Encounter [id number] 05/09 [facility] PSYTX W PT 60 MINUTES [id number] [id number] Diagnos is: ICD-10- CM F20.3 Undiffe rentiat ed schizop lisa GONZALEZ,REYNOLD CEY R 05/19 [facility] Outpatient Encounter [id number] CARLOSTRA CEY R 05/31 [facility] Outpatient Encounter [id number] CARLOS,TRA CEY R 06/01 [facility] PSYTX W PT 60 MINUTES [id number] [id number] Diagnos is: ICD-10- CM F20.3 Undiffe rentiat ed schizop hrenia FINTEL,TRA CEY R 06/13 [facility] PSYTX W PT 60 MINUTES [id number] [id number] Diagnos is: ICD-10- CM F20.9 Schizop hrenia, unspeci fied FINTEL,TRA CEY R 06/20 [facility] PSYTX W PT 60 MINUTES [id number] [id number] Diagnos is: ICD-10- CM F20.9 Schizop hrenia, unspeci fied FINTEL,TRA CEY R 06/27 [facility] PSYTX W PT 60 MINUTES [id number] [id number] Diagnos is: ICD-10- CM F20.3 Undiffe rentiat ed schizop hrenia FINTEL,TRA CEY R 07/04 [facility] OFFICE O/P EST MOD 30 MIN [id number] [id number] Diagnos is: ICD-10- CM F20.3 Undiffe rentiat ed schizop hrenia CARLSON,MAEGAN V 07/07 [facility] PSYTX W PT 60 MINUTES [id number] [id number] Diagnos is: ICD-10- CM F20.9 Schizop hrenia, unspeci fied FINTEL,TRA CEY R 07/31 [facility] PSYTX W PT 60 MINUTES [id number] [id number] Diagnos is: ICD-10- CM F20.9 Schizop hrenia, unspeci fied FINTEL,TRA CEY R 08/07 [facility] PSYTX W PT 60 MINUTES [id number] [id number] Diagnos is: ICD-10- CM F20.3 Undiffe rentiat ed schizop hrpallavi GONZALEZ,TRA CEY R 08/28 [facility] PSYTX W PT 60 MINUTES [id number] [id number] Diagnos is: ICD-10- CM F20.3 Undiffe rentiat ed schizop hrpallavi GONZALEZ,TRA CEY R 09/11 [facility] PSYTX W PT 60 MINUTES [id number] [id number] Diagnos is: ICD-10- CM F20.3 Undiffe rentiat ed schizop lisa SAENZTEL,TRA CEY R 09/25 [facility] Outpatient Encounter [id number] CARLOS,REYNOLD CEY R 10/10 [facility] Outpatient Encounter [id number] 10/[address] [facility] PSYTX W PT 60 MINUTES [id number] [id number] Diagnos is: ICD-10- CM F20.3 Undiffe rentiat ed schizop hrpallavi SAENZTEL,TRA CEY R 10/25 [facility] Outpatient Encounter [id number] REYNOLD GONZALEZY R 11/21 [facility] Outpatient Encounter [id number] REYNOLD GONZALEZ R 11/24 [facility] Outpatient Encounter [id number] REYNOLD GONZALEZ CEY R 11/27 [facility] Outpatient Encounter [id number] REYNOLD GONZALEZ CEY R 12/05 [facility] PSYTX W PT 60 MINUTES [id number] [id number] Diagnos is: ICD-10- CM F20.3 Undiffe rentiat ed schizop hrenia CARLOS,TRA CEY R 12/20 [facility] PSYTX W PT 60 MINUTES [id number] [id number] Diagnos is: ICD-10- CM F20.9 Schizop hrenia, unspeci fied FINTEL,TRA CEY R 01/02 [facility] PSYTX W PT 60 MINUTES [id number] [id number] Diagnos is: ICD-10- CM F20.9 Schizop hrenia, unspeci fied FINTEL,TRA CEY R 01/16 [facility] Outpatient Encounter [id number] 01/26 [facility] Outpatient Encounter [id number] 01/[address] [facility] PSYTX W PT 60 MINUTES [id number] [id number] Diagnos is: ICD-10- CM F20.9 Schizop hrenia, unspeci fied FINTEL,TRA CEY R 01/30 [facility] Outpatient Encounter [id number] GANGA NELSON M 02/[address] [facility] OFFICE O/P EST MOD 30 MIN [id number] [id number] Diagnos is: ICD-10- CM F20.3 Undiffe rentiat ed schizop hrenia CARLSON,MAEGAN V 02/08 [facility] PSYTX W PT 60 MINUTES [id number] [id number] Diagnos is: ICD-10- CM F20.3 Undiffe rentiat ed schizop hrpallavi GONZALEZ,TRA CEY R 02/13 [facility] GROUP PSYCHOTHER APY [id number] [id number] Diagnos is: ICD-10- CM F20.3 Undiffe rentiat ed schizop hrenia DANYTEL,TRA CEY R 02/22 [facility] Outpatient Encounter [id number] 02/27 [facility] PSYTX W PT 60 MINUTES [id number] [id number] Diagnos is: ICD-10- CM F20.3 Undiffe rentiat ed schizop hrenia DANYTEL,TRA CEY R 03/13 [facility] PSYTX W PT 60 MINUTES [id number] [id number] Diagnos is: ICD-10- CM F20.3 Undiffe rentiat ed schizop hrenia DANYTEL,TRA CEY R 04/24 [facility] Outpatient Encounter [id number] 05/08 [facility] Outpatient Encounter [id number] 005 05/09 [facility] PSYTX W PT 60 MINUTES [id number] [id number] Diagnos is: ICD-10- CM F20.3 Undiffe rentiat ed schizop hrpallavi REYNOLD GONZALEZ R 06/06 [facility] Outpatient Encounter [id number] Steve REYNOLD GONZALEZ R 06/20 [facility] Social History Combined list of available smoking, tobacco, and other social history from Department of Defense and Veterans Affairs facilities. Social History Type Response Date Comment Sour e Tobacco smoking status [place]-TOBAC[place] US[place] EVERY DAY 02/09/2024 [facility] History of tobacco use VA-TOBACCO USE WI 30 MIN OF WAKEUP 02/09/2024 [facility] History of tobacco use TOBACCO USER OFFE RED MEDS 10/14/2017 [facility] History of tobacco use CURRENT TOBACCO USER 05/19/2016 [facility] History of tobacco use CURRENT TOBACCO USER 06/06/2015 [facility] History of tobacco use CURRENT TOBACCO USER 06/21/2014 [facility] History of tobacco use TOBACCO OFF[facility]ED [facility] 07/10/2013 [facility] History of tobacco use CURRENT TOBACCO USER 06/22/2012 [facility] History of tobacco use CURRENT TOBACCO USER 07/19/2011 [facility] History of tobacco use CURRENT TOBACCO USER 09/07/2010 [facility] History of tobacco use CURRENT TOBACCO USER 09/18/2009 [facility] History of tobacco use CURRENT TOBACCO USER 04/05/2007 [facility] History of tobacco use CURRENT TOBACCO USER 11/15/2000 [facility] History of tobacco use CURRENT SMOKER 08/12/2000 [facility] This section is an empty social history section. [facility] Plan of Care List of future care activities from Department of [facility] facilities. Additional future care activities may be listed in the Assessment and Plan section. Date/Time Care Activity Care Activity Detail Facili ty 07/03/2024 [facility]BUL[facility] 09/07/2024 AMBULAT[facility] - [facility] Advance Directives List of completed, amended, or rescinded Advance Directives on record at [facility] facilities. An actual copy of the Directive is not included. Date Advance Directive Provider Source 02/17/2007 ADVANCE DIRECTIVE ARELI DONOHUE [facility] 10/22/2003 ADVANCE DIRECTIVE KEYSHAWN VELARDE [facility]
--- OUTSIDE RECORDS SUMMARY | 2024-06-28 14:44 | XMS_ITS ---
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 09/07/22. SUMMARY OF SERVICES/PROGRESS TO DATE: Since admission, nayla has engaged in weekly recovery coaching/therapy to address psychotic symptoms using the CBT for psychosis protocol. Nayla has completed most action plans asssigned over course of treatment. He has been receptive/responsive to interventions in session but has struggled to apply skills outside of session, preferring instead to take anti- anxiety meds when AH worsen throughout the day. Provider has frequently encouraged nayla to utilize CBTp skills in addition to using medication. Nayla is generally stable, but remains psychotic at baseline despite compliance with meds. Provider assessed nayla's interest in attending CBTP group in the new quarter, but nayla again declined groups. Provider will continue to encourage group participation. Annual Program Participation Review Reviewed the following with : [x] [facility] Services, including program updates [x] [place] Handbook which includes the following: *[facility] [place] and Values/Program expectations *Patient Rights and Responsibilities *Grievance Process *Discharge Criteria *Program participation expectations *Health and Safety Procedures *[place] Feedback *[facility] Contact Numbers *[place] Resource Listings [x] An updated handbook was offered to the . (will mail to [place]) [x] accepts risk and responsibilities associated with continued [facility] program participation. [facility]RA Updates or Changes: none [ ] [place] requested the following natural supports be included in treatment: [ ] ROIs sent to scanning for inclusion in the medical record. HEALTH & SAFETY REVIEW The following health and safety issues were reviewed during session: Primary Care Provider: [ ] VA Provider: [x] Non-VA provider: Private PCP, last appt in 2023 [ ] No provider: N/A Date of last visit with above provider: If the [place] has no provider or it has been more than 12 months since the last visit, please encourage/assist the [place] with scheduling PCP appointment. Does the report any urgent medical needs, such as: Left sided chest pain with sweating, shortness of breath, or nausea: Worsening shortness of breath: No Persistent swelling in your feet: No Blood in urine/stool: No Unexplained weight loss: No Coughing up blood: No Other: [x] none reported If yes to any of the above: N/A [ ] Advised to go to the ED. Outcome: [ ] Other: Does the [place] report chronic pain? Yes ? hip, knees, ankles If so, on a scale of one to ten (1 being the least and 10 being the worst) how does the [place] rate pain? 2-3 Does the [place] want a referral to help manage pain? [a score >4 and not well managed pain=recommendation for a pain assessment and referral to PCP.] Does the report any of the following issues: 1. Have you lost or gained 10 pounds or more in the last 3 months without trying? [ ] yes [x] no 2. Have you gained 10 pounds or more in the last 2 weeks due to fluid?: [ ] yes [x] no 3. Has food intake declined due to loss of appetite, digestive problems, dental problems or swallowing difficulty?: [ ] yes [x] no 4. Food Allergies: [ ] yes [x] no If answers yes to any of the nutrition risk screening questions, inform or assist the patient to call [phone], to schedule an appointment with a dietitian or consult Dietetic Services. 5. Eating habits or behaviors that may be indicators of an eating disorder, such as binging or inducing vomiting? [ ] yes [x] no If answers yes , enter a Dietetic Services- Dietetics Outpt Disordered eating consult. PLAN N/A [ ] Entered consult [ ] Assisted with scheduling appointment. Date: [ ] Reminded of upcoming appointment. Date: [ ] [place] declined primary care appointment. Reason: [ ] declined dietetic appointment. Reason: [ ] Other: Behavioral Health: Does the have an active High Risk Flag: No Does the have an Active Behavioral Flag? No Does the [place] have access to a gun*? No If [place] owns a gun: How is the gun stored?: N/A [ ] Provided education to [place] on gun safety, including safe storage of weapons and availability of free gun lock. [ ] accepts gun lock. [ ] Declines gun lock at this time CLINICAL REMINDERS DUE: [x]PTSD Screen [x]MST Screen [x]Depression Screen []AUDIT-C []Homeless/Food Insecurity [x]Suicide Screen Assessment for SI/HI: Risk factors presented include: one attempt between [id number] (cut wrists). No medical attention, history of hospitalizations for SI, Schizophrenia dx Protective factors include: family support, buddhism beliefs, in mental health tx, takes psych meds History of violence, suicide, etc. - include current and historic): see above, no other violence *Upon review of known risk/protective factors: [x] [place] did not appear to be at imminent risk of harm to self or others. [ ] is judged in need of further evaluation regarding appropriate/safe level of care. Emergency protocols are initiated. Specifically: N/A agrees to manage these concerns by: [x} Attending all behavioral health appointments [x] Taking medications as prescribed [ ] Attend/ begin substance abuse treatment [ ] Participate in support groups [x] Follow my suicide safety plan [x] Meeting regularly with my chemical recovery operator [ ] Other: N/A [x] Vet informed if he had a life threatening emergency, [place] should call 911 and go to the nearest emergency department. [place] also aware that if if he/she is in an emotional crisis the vet can call the crisis hotline 24 hours per day at , press 1 for Veterans. Personal Safety: agrees to manage these concerns by: [x] Maintain environmental awareness in community [x] Discuss any safety concerns with case supervisor [x] Keep list of emergency contacts [x] Practice safe storage of any firearm [x] Practice fire safety [ ] Other: N/A [facility] Recovery Planning [x] Reviewed and discussed measurement based care questionnaire outcomes WHODAS (desired direction lower) 12/07/22 - 03/15/23 - 06/16/2308/26/23 - 37 ISMI (desired direction lower) 12/07/22 - 3 03/15/23 - 2.4 06/16/23 - 2.4 08/26/23 - 2.7 SWEMW (desired direction higher) 12/07/22 - 03/15/23 - 06/16/23 - 18 08/26/23 - 14 PHQ-9 (desired direction lower) 12/07/22 - 12 03/15/23 - 06/16/23 - 08/26/23 - Comments: increase in WHODAS score and decrease in SWEMW score may be related to recent health concerns. Depressive symptoms have decreased overall. Goals/Objectives reviewed during session: Problem: Wellness Dimension: Cognition Goal: [place] stated goal(s): I want the inside voices to get quieter . Objective: stated objective(s): Vet will report decreased impact of AH by self-report and results of WHODAS. Projected Target Date: 03/15/2024 Intervention: Supportive individual counseling with [facility] Providers: ROLAND BLEVINS Time Frame: One time per week for 1 year Treating Specialty: [facility]-Trauma Recovery Program Renewal Date: 09/07/2023 Entered Treatment: 09/07/2022 @ 05:56PM Anticipated Discharge: None Actual Discharge: None Intervention: I will participate in medication management in [facility] to manage my symptoms and monitor my response Time Frame: PRN Treating Specialty: [facility]-Trauma Recovery Program Renewal Date: 09/07/2023 Entered Treatment: 09/07/2022 @ 05:56PM Anticipated Discharge: None Actual Discharge: None [ ] Resolved [x] Improvement Shown - vet reports that voices are quieter and that he is using CBTp skills learned in [facility]. Some worsening of scores on measures may be related to health concerns. And, depressive symptoms have improved. [ ] Unresolved (no improvement shown) [ ] No Longer Appropriate: Intervention/Plan: INTERVENTION HI Supportive Psychotherapy Psychoeducation re: Program Updates and Review of Program Expectations/Health and Safety GOAL(S) ADDRESSED THIS SESSION [facility] Program Education Health and Safety Review Behavioral Health and Risk Assessment Discussion of Treatment Goals Review of Progress since [facility] Admission Review of Readiness for Discharge/Graduation PROGRESS TOWARDS GOALS AND RESPONSE TO INTERVENTION was responsive to HI interventions and actively engaged in session. PLAN [x] Continued participation in [facility] is clinically appropriate. Progress and changes to goals, objectives, and interventions are documented in the treatment plan. [x] Meet with [facility] team as outlined in treatment plan and as needed. { } The has an updated copy of his/her goals and objectives { } The was offered a copy of his/her goals and objectives [x] RTC with automotive service writer for: RTC in 2 weeks /shemar/ PATRICK Ortiz Signed: 08/31/2023 17:19 Receipt Acknowledged By: 09/05/2023 00:00 /es/ AUDREY CEE, ROUTE DELIVERY MANAGER, NURSE SANE [facility] Ward Clerk 09/01/2023 08:00 /es/ Leopoldo Duke [facility] Certified Clerk 09/01/2023 12:20 /es/ RANCHO HANNAH RN Registered Nurse, [facility] 09/09/2023 09:22 /es/ KRISTOPHER ORTIZ PhD Psychologist [facility] 09/12/2023 08:33 /es/ Amanda Asher, Ph.D. Clinical Psychologist 09/01/2023 08:33 /es/ DEBBY KELLEY [facility] OCCUPATIONAL THERAPIST (NEO, OTR/L) 09/01/2023 07:18 /es/ MAEGAN CARLSON MD Psychiatrist, Mental Health ROLAND BLEVINS [facility] Aug 28, 2023 03:38 PM ADDENDUM: LOCAL TITLE: Addendum STANDARD TITLE: ADDENDUM DATE OF NOTE: AUG 28, 2023@15:38:50 ENTRY DATE: AUG 28, 2023@15:38:51 AUTHOR: ROLAND BLEVINS EXP COSIGNER: URGENCY: STATUS: COMPLETED Follow-up NEPEC ready for entry. No changes during review period. /PATRICK Hansen Signed: 08/28/2023 15:39 Receipt Acknowledged By: 09/14/2023 11:13 /shemar/ PHILLIP MCCARTY Retoucher [employer] --- Original Document --- 08/26/23 MENTAL HEALTH DIAGNOSTIC STUDY: Assessments were sent to the [place] via text/email. These assessments were completed by ROHITH LEMUS on their own device on 08/26/2023 2:27:55 PM. PATIENT HEALTH QUESTIONNAIRE-9 (PHQ-9) The patient reported some symptoms of depression; symptoms are not consistent with a major depressive episode. Patient reported being bothered by the following over the last 2 weeks: 1. Little interest or pleasure: Several Days 2. Feeling down, depressed or hopeless: Several Days 3. Trouble sleeping: Several Days 4. Tired, low energy: Several Days 5. Poor appetite, over-eating: Not at all 6. Feelings of failure, guilt: Several Days 7. Trouble concentrating: Nearly every day 8. Motor retardation, agitation: Several Days 9. Thoughts better off /hurting self: Several Days PHQ-9 total score = 10 1-4 = minimal symptoms 5-9= mild symptoms 10-14= moderate symptoms 15-19= moderately severe symptoms 20-27= severe depressive symptoms The patient stated that the depressive symptoms made it very difficult to work, take care of things at home, or get along with others. PHQ-9 Total Score (past 180 days): 08/26/2023 10 06/16/2023 12 03/15/2023 11 WORLD HEALTH ORGANIZATION DISABILITY ASSESSMENT SCHEDULE 2.0 12-ITEM (WHODAS 2.0 12-ITEM) The patient reported the following levels of difficulty in the past 30 days: S1. Standing for long periods such as 30 minutes? Extreme or cannot do S2. Taking care of your household responsibilities? Severe S3. Learning a new task, for example, learning how to get to a new place? Moderate S4. Joining in community activities in the same way as anyone else can? Extreme or cannot do S5. How much have you been emotionally affected by your health problems? Severe S6. Concentrating on doing something for ten minutes? Severe S7. Walking a long distance such as a kilometer [or equivalent]? Extreme or cannot do S8. Washing your whole body? Moderate S9. Getting dressed? Moderate S10. Dealing with people you do not know? Extreme or cannot do S11. Maintaining a friendship? Moderate S12. Your day-to-day work? Extreme or cannot do In the past 30 days: H1. How many days were these difficulties present? 15 H2. How many days were you totally unable to carry out your usual activities or work because of any health condition? 24 H3. Not counting the days that you were totally unable, for how many days did you cut back or reduce your usual activities or work because of any health condition? 24 WHODAS 2.0-12 Total Score: 37 Higher scores indicate increased likelihood of a disability due to health conditions including diseases, illnesses, injuries, mental or emotional problems, and problems with alcohol or drugs. WHODAS 2.0-12 Score (past 180 days): 08/26/2023 37 06/16/2023 30 03/15/2023 23 INTERNALIZED STIGMA OF MENTAL ILLNESS (ISMI-10) The patient reported agreeing with the statements below as follows: 1. Mentally ill people tend to be violent: Agree 2. People with mental illness make important contributions to society: Agree 3. I don't socialize as much as I used to because my mental illness might make me look or behave weird : Strongly Agree 4. Having a mental illness has spoiled my life: Agree 5. I stay away from social situations in order to protect my family or friends from embarrassment: Strongly Agree 6. People without mental illness could not possibly understand me: Disagree 7. People ignore me or take me less seriously just because I have a mental illness: Disagree 8. I can't contribute anything to society because I have a mental illness: Disagree 9. I can have a good, fulfilling life, despite my mental illness: Disagree 10. Others think that I can't achieve much in life because I have a mental illness: Disagree Score: 2.7 Scores range from 1 - 4. Higher scores indicate greater internalized stigma. ISMI-10 Score (past 180 days): 08/26/2023 2.7 06/16/2023 2.4 03/15/2023 2.4 SHORT [place] MENTAL WELLBEING SCALE (SWEMWBS) The patient reported the following over the last two weeks: I have been feeling optimistic about the future: None of the time I have been feeling useful: Some of the time I have been feeling relaxed: Rarely I have been dealing with problems well: Rarely I have been thinking clearly: None of the time I have been feeling close to other people: Rarely I have been able to make up my own mind about things: Some of the time Raw Score = 14 Metric Score = 15.32 Raw Scores range from 7 to 35. Higher scores indicate greater positive mental wellbeing. 28-35 = high mental wellbeing 21-27 = average mental wellbeing 18-20 = possible depression 17 or less = probable depression SWEMWBS Raw Score (past 180 days): 08/26/2023 14 06/16/2023 18 03/15/2023 14 SWEMWBS Metric Score (past 180 days): 08/26/2023 15.32 06/16/2023 17.43 03/15/2023 15.32 [facility] PARTICIPATION (CP) MEASURE [VA MOD.] (TCUP) In the past 30 days, how often did you go to a restaurant or coffee shop? Number of days: 0 Did you do this activity? Not Enough Is this activity important to you? No In the past 30 days, how often did you attend restorationist, oriental orthodox, or place of christianity? Number of days: 0 Did you do this activity? Not Enough Is this activity important to you? Yes In the past 30 days, how often did you go to a park or recreation center? Number of days: 0 Did you do this activity? Not Enough Is this activity important to you? No In the past 30 days, how often did you go to a social group (book club, [employer], hobby group, etc.)? Number of days: 0 Did you do this activity? Not Enough Is this activity important to you? Yes In the past 30 days, how often did you go to a theater or cultural event (including local school or club events, exhibits or presentations) in the community? Number of days: 0 Did you do this activity? Not Enough Is this activity important to you? No In the past 30 days, how often did you go to a gym, health or exercise club, including pool or participate in a sports event (including bowling, tennis, miniature golf)? Number of days: 0 Did you do this activity? Not Enough Is this activity important to you? Yes In the past 30 days, how often did you use public transport? Number of days: 0 Did you do this activity? Not Enough Is this activity important to you? Yes In the past 30 days, how often did you go to watch a sporting event (e.9., football, baseball, hockey, tennis, etc.)? Number of days: 0 Did you do this activity? Not Enough Is this activity important to you? No In the past 30 days, how often did you go to a community fair, block republican, community cleanup day, or other community event or activity? Number of days: 0 Did you do this activity? Not Enough Is this activity important to you? Yes In the past 30 days, how often did you entertain family or friends in your home or visit family or friends in their home? Number of days: 2 Did you do this activity? Not Enough Is this activity important to you? Yes In the past 30 days, how often do you go to a yañez shop, beauty salon, nail salon, spa, etc.? Number of days: 0 Did you do this activity? Not Enough Is this activity important to you? Yes In the past 30 days, how often did you get together in the community or attend an event or celebration with family or friends (for example, a wedding, bar mitzvah, birthday republican)? Number of days: 0 Did you do this activity? Not Enough Is this activity important to you? Yes In the past 30 days, how often did you take a class for leisure or life skills (for example, classes for cooking, art, crafts, ceramics, or photography)? Number of days: 0 Did you do this activity? Not Enough Is this activity important to you? Yes In the past 30 days, how often did you go to run errands (for example, go to a post office, bank, laundromat)? Number of days: 12 Did you do this activity? Enough Is this activity important to you? Yes In the past 30 days, how often did you go shopping at a grocery store, convenience store, shopping center, mall, other retail store, flea market, or garage sale? Number of days: 1 Did you do this activity? Not Enough Is this activity important to you? Yes In the past 30 days, how often did you work for pay? Number of days: 0 Did you do this activity? Enough Is this activity important to you? No In the past 30 days, how often did you go to the library? Number of days: 0 Did you do this activity? Not Enough Is this activity important to you? Yes In the past 30 days, how often did you go to a school, earn a degree or certificate? Number of days: 0 Did you do this activity? Enough Is this activity important to you? Yes In the past 30 days, how often did you attend a political event? Number of days: 0 Did you do this activity? Enough Is this activity important to you? No In the past 30 days, how often did you participate in volunteer activities? Number of days: 0 Did you do this activity? Enough Is this activity important to you? Yes In the past 30 days, how often did you go to a movie? Number of days: 0 Did you do this activity? Enough Is this activity important to you? No In the past 30 days, how often did you go to a zoo, botanical garden, or museum? Number of days: 0 Did you do this activity? Not Enough Is this activity important to you? Yes /shemar/ ROLAND BLEVINS PsychologistPATRICK Signed: 08/28/2023 15:38 ROLAND BLEVINS [facility] Aug 26, 2023 05:52 PM MENTAL HEALTH DIAGNOSTIC STUDY NOTE: LOCAL TITLE: MENTAL HEALTH DIAGNOSTIC STUDY STANDARD TITLE: MENTAL HEALTH DIAGNOSTIC STUDY NOTE DATE OF NOTE: AUG 26, 2023@17:52:12 ENTRY DATE: AUG 26, 2023@17:52:12 AUTHOR: ROLAND BLEVINS EXP COSIGNER: URGENCY: STATUS: COMPLETED MENTAL HEALTH DIAGNOSTIC STUDY Has ADDENDA Assessments were sent to the via text/email. These assessments were completed by ROHITH LEMUS on their own device on 08/26/2023 2:27:55 PM. PATIENT HEALTH QUESTIONNAIRE-9 (PHQ-9) The patient reported some symptoms of depression; symptoms are not consistent with a major depressive episode. Patient reported being bothered by the following over the last 2 weeks: 1. Little interest or pleasure: Several Days 2. Feeling down, depressed or hopeless: Several Days 3. Trouble sleeping: Several Days 4. Tired, low energy: Several Days 5. Poor appetite, over-eating: Not at all 6. Feelings of failure, guilt: Several Days 7. Trouble concentrating: Nearly every day 8. Motor retardation, agitation: Several Days 9. Thoughts better off /hurting self: Several Days PHQ-9 total score = 10 1-4 = minimal symptoms 5-9= mild symptoms 10-14= moderate symptoms 15-19= moderately severe symptoms 20-27= severe depressive symptoms The patient stated that the depressive symptoms made it very difficult to work, take care of things at home, or get along with others. PHQ-9 Total Score (past 180 days): 08/26/2023 10 06/16/2023 12 03/15/2023 11 WORLD HEALTH ORGANIZATION DISABILITY ASSESSMENT SCHEDULE 2.0 12-ITEM (WHODAS 2.0 12-ITEM) The patient reported the following levels of difficulty in the past 30 days: S1. Standing for long periods such as 30 minutes? Extreme or cannot do S2. Taking care of your household responsibilities? Severe S3. Learning a new task, for example, learning how to get to a new place? Moderate S4. Joining in community activities in the same way as anyone else can? Extreme or cannot do S5. How much have you been emotionally affected by your health problems? Severe S6. Concentrating on doing something for ten minutes? Severe S7. Walking a long distance such as a kilometer [or equivalent]? Extreme or cannot do S8. Washing your whole body? Moderate S9. Getting dressed? Moderate S10. Dealing with people you do not know? Extreme or cannot do S11. Maintaining a friendship? Moderate S12. Your day-to-day work? Extreme or cannot do In the past 30 days: H1. How many days were these difficulties present? 15 H2. How many days were you totally unable to carry out your usual activities or work because of any health condition? 24 H3. Not counting the days that you were totally unable, for how many days did you cut back or reduce your usual activities or work because of any health condition? 24 WHODAS 2.0-12 Total Score: 37 Higher scores indicate increased likelihood of a disability due to health conditions including diseases, illnesses, injuries, mental or emotional problems, and problems with alcohol or drugs. WHODAS 2.0-12 Score (past 180 days): 08/26/2023 37 06/16/2023 30 03/15/2023 23 INTERNALIZED STIGMA OF MENTAL ILLNESS (ISMI-10) The patient reported agreeing with the statements below as follows: 1. Mentally ill people tend to be violent: Agree 2. People with mental illness make important contributions to society: Agree 3. I don't socialize as much as I used to because my mental illness might make me look or behave weird : Strongly Agree 4. Having a mental illness has spoiled my life: Agree 5. I stay away from social situations in order to protect my family or friends from embarrassment: Strongly Agree 6. People without mental illness could not possibly understand me: Disagree 7. People ignore me or take me less seriously just because I have a mental illness: Disagree 8. I can't contribute anything to society because I have a mental illness: Disagree 9. I can have a good, fulfilling life, despite my mental illness: Disagree 10. Others think that I can't achieve much in life because I have a mental illness: Disagree Score: 2.7 Scores range from 1 - 4. Higher scores indicate greater internalized stigma. ISMI-10 Score (past 180 days): 08/26/2023 2.7 06/16/2023 2.4 03/15/2023 2.4 SHORT [place] MENTAL WELLBEING SCALE (SWEMWBS) The patient reported the following over the last two weeks: I have been feeling optimistic about the future: None of the time I have been feeling useful: Some of the time I have been feeling relaxed: Rarely I have been dealing with problems well: Rarely I have been thinking clearly: None of the time I have been feeling close to other people: Rarely I have been able to make up my own mind about things: Some of the time Raw Score = 14 Metric Score = 15.32 Raw Scores range from 7 to 35. Higher scores indicate greater positive mental wellbeing. 28-35 = high mental wellbeing 21-27 = average mental wellbeing 18-20 = possible depression 17 or less = probable depression SWEMWBS Raw Score (past 180 days): 08/26/2023 14 06/16/2023 18 03/15/2023 14 SWEMWBS Metric Score (past 180 days): 08/26/2023 15.32 06/16/2023 17.43 03/15/2023 15.32 [facility] PARTICIPATION (CP) MEASURE [VA MOD.] (TCUP) In the past 30 days, how often did you go to a restaurant or coffee shop? Number of days: 0 Did you do this activity? Not Enough Is this activity important to you? No In the past 30 days, how often did you attend restorationist, oriental orthodox, or place of christianity? Number of days: 0 Did you do this activity? Not Enough Is this activity important to you? Yes In the past 30 days, how often did you go to a park or recreation center? Number of days: 0 Did you do this activity? Not Enough Is this activity important to you? No In the past 30 days, how often did you go to a social group (book club, [employer], hobby group, etc.)? Number of days: 0 Did you do this activity? Not Enough Is this activity important to you? Yes In the past 30 days, how often did you go to a theater or cultural event (including local school or club events, exhibits or presentations) in the community? Number of days: 0 Did you do this activity? Not Enough Is this activity important to you? No In the past 30 days, how often did you go to a gym, health or exercise club, including pool or participate in a sports event (including bowling, tennis, miniature golf)? Number of days: 0 Did you do this activity? Not Enough Is this activity important to you? Yes In the past 30 days, how often did you use public transport? Number of days: 0 Did you do this activity? Not Enough Is this activity important to you? Yes In the past 30 days, how often did you go to watch a sporting event (e.9., football, baseball, hockey, tennis, etc.)? Number of days: 0 Did you do this activity? Not Enough Is this activity important to you? No In the past 30 days, how often did you go to a community fair, block republican, community cleanup day, or other community event or activity? Number of days: 0 Did you do this activity? Not Enough Is this activity important to you? Yes In the past 30 days, how often did you entertain family or friends in your home or visit family or friends in their home? Number of days: 2 Did you do this activity? Not Enough Is this activity important to you? Yes In the past 30 days, how often do you go to a yañez shop, beauty salon, [facility] [facility] salon, spa, etc.? Number of days: 0 Did you do this activity? Not Enough Is this activity important to you? Yes In the past 30 days, how often did you get together in the community or attend an event or celebration with family or friends (for example, a wedding, bar mitzva, birthday republican)? Number of days: 0 Did you do this activity? Not Enough Is this activity important to you? Yes In the past 30 days, how often did you take a class for leisure or life skills (for example, classes for cooking, art, crafts, ceramics, or photography)? Number of days: 0 Did you do this activity? Not Enough Is this activity important to you? Yes In the past 30 days, how often did you go to run errands (for example, go to a post office, bank, laundromat)? Number of days: 12 Did you do this activity? Enough Is this activity important to you? Yes In the past 30 days, how often did you go shopping at a grocery store, convenience store, shopping center, mall, other retail store, flea market, or garage sale? Number of days: 1 Did you do this activity? Not Enough Is this activity important to you? Yes In the past 30 days, how often did you work for pay? Number of days: 0 Did you do this activity? Enough Is this activity important to you? No In the past 30 days, how often did you go to the library? Number of days: 0 Did you do this activity? Not Enough Is this activity important to you? Yes In the past 30 days, how often did you go to a school, earn a degree or certificate? Number of days: 0 Did you do this activity? Enough Is this activity important to you? Yes In the past 30 days, how often did you attend a political event? Number of days: 0 Did you do this activity? Enough Is this activity important to you? No In the past 30 days, how often did you participate in volunteer activities? Number of days: 0 Did you do this activity? Enough Is this activity important to you? Yes In the past 30 days, how often did you go to a movie? Number of days: 0 Did you do this activity? Enough Is this activity important to you? No In the past 30 days, how often did you go to a zoo, botanical garden, or museum? Number of days: 0 Did you do this activity? Not Enough Is this activity important to you? Yes /shemar/ PATRICK Ortiz Signed: 08/28/2023 15:38 08/28/2023 ADDENDUM STATUS: COMPLETED Follow-up [facility] ready for entry. No changes during review period. /PATRICK Hansen Signed: 08/28/2023 15:39 Receipt Acknowledged By: * AWAITING SIGNATURE * PHILLIP MCCARTY TRACEY R [facility]
--- OUTSIDE RECORDS SUMMARY | 2024-06-28 14:44 | XMS_ITS | Patient Health Summary ---
Author Organization [facility] Address [address] [place] [address] Care Team Providers Care Freight Car Builder Name Role Phone Timbo Gregg MD Primary Care Provider Oliverio Ladd APRN-STRATEGIC MARKETING SPECIALIST Unavailable [phone] Note from [facility] [place] [place]non-owned Affiliates and Associated Physician Practices is amultiple site organization consisting of ambulatory clinics and hospital sitesin [place], [place], [place] and [place]. This disclosure is being madepursuant to the Care Everywhere program and may not contain all information available regarding this patient. Last updated 18.[facility] Allergies * Lisinopril(Angioedema) -High Criticality Medications * [...] into muscle as directed * Fish Oil-Cholecalciferol ([place]-3 Fish Oil/Vitamin D3) 3726-8294 MG-UNIT CAPS (Discontinued) Take 1,000 mg by [...] with BMI of 40.0-44.9, adult 10/2210/21/2022 Other custodial (current) drug therapy 10/21/2022 Microalbuminuria 08/26/2021 10/21/2022 [...] Comments Blood Pressure 124/80 06/13/2024 1:11 PM PIANO MOVER Pulse 70 06/13/2024 1:11 PM PIANO MOVER Temperature 36.1 C (97 F) 06/13/2024 1:11 PM PIANO MOVER Respiratory Rate 16 06/13/2024 1:11 PM PIANO MOVER Oxygen Saturation 95% 06/13/2024 1:11 PM PIANO MOVER Inhaled Oxygen Concentration - - Weight 129.3 kg (285 lb) 06/13/2024 1:11 PM PIANO MOVER Height 175.3 cm (5' 9 ) 06/13/2024 1:11 PM PIANO MOVER Body Mass Index 42.09 06/13/2024 1:11 PM PIANO MOVER Procedures * XR PELVIS W BILAT HIP [...] SCREEN W/REFLEX TITER(Performed 06/13/2024) Performed for Positive TRE (antinuclear antibody) * RIBOSOMAL P PROTEIN ANTIBODY(Performed [...] W Bilat Hip 1Vw (06/13/2024 3:34 PM PIANO MOVER) Anatomical Region Laterality Modality Pelvis Radiographic Marissa ging 06/13/2024 5:09 PM PIANO MOVER Impressions 06/13/2024 5:12 PM PIANO MOVER IMPRESSION: 1. No significant hip findings. 2. 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 No acute findings. 2. Mild bilateral knee primary osteoarthritis > Interpreting Provider: Sarah Mchugh MD on 06/13/2024 5:13 PM Narrative 06/13/2024 5:13 PM PIANO MOVER PROCEDURE: XR KNEE BILAT 2VW OR LESS [...] Spine 4Vw or More (06/13/2024 3:34 PM PIANO MOVER) Anatomical Region Laterality Modality Spine Radiographic Marissa ging 06/13/2024 5:08 PM PIANO MOVER Impressions 06/13/2024 5:09 PM PIANO MOVER IMPRESSION: 1. L3-L4 grade 1-2 degenerative subluxation > Interpreting Provider: Sarah Mchugh MD on 06/13/2024 5:09 PM Narrative 06/13/2024 5:09 PM PIANO MOVER PROCEDURE: XR LUMBAR SPINE 4VW OR MORE [...] CARDIOLIPIN ANTIBODY IGA/IGG/IGM PANEL (06/13/2024 2:38 PM PIANO MOVER) Cardiolipin Antibody IgG <9 0 - 14 [...] BLOOD SPECIMEN / Unknown 06/13/2024 2:38 PM PIANO MOVER 06/13/2024 Narrative [facility] ACCOUNT BILL - 06/14/2024 5:07 PM PIANO MOVER Performed at: 01 - [facility] [address] [id number] Sales Clerk Supervisor: Tacho Shoemaker PhD, Phone: [phone] Panchito Finnegan DO LAB - SEROLOGY ORDER EVI [facility] ACCOUNT BILL [address] [place] [address] * TRE PANEL COMPREHENSIVE (06/13/2024 2:38 PM PIANO MOVER) Anti-dsDNA Quantitative <1 0 - 9 IU/mL [facility] ACCOUNT BILL Comment: Negative <5 Equivocal 5 - 9 Positive >9 PLUG SHAPER HAND Antibody <0.2 0.0 - 0.9 AI [facility] ACCOUNT BILL Melo (DOMENICO) Antibody <0.2 0.0 - 0.9 AI [facility] ACCOUNT BILL Antiscleroderma-70 Antibody 0.2 0.0 - 0.9 AI [facility] ACCOUNT BILL Sjogren's Antibodies (SSA) <0.2 0.0 - 0.9 AI [facility] ACCOUNT BILL Sjogren's Antibodies (SSB) <0.2 0.0 - 0.9 AI [facility] ACCOUNT RICHARD Antichromatin Antibodies <0.2 0.0 - 0.9 AI [facility] Josefina-1 Antibody <0.2 0.0 - 0.9 AI [facility] Centromere B Antibody <0.2 0.0 - 0.9 AI [facility] ACCOUNT [facility] See Below Comment [facility] ACCOUNT [facility] Comment: Autoantibody Disease Association Condition Frequency --------- Antinuclear Antibody, SLE, mixed connective Direct (TRE-D) tissue diseases --------- dsDNA SLE 40 - 60% --------- Chromatin Drug induced SLE 90% SLE 48 - 97% --------- SSA (Ro) SLE 25 - 35% Sjogren's Syndrome 40 - 70% Lupus 100% --------- SSB (La) SLE 10% Sjogren's Syndrome 30% --------- Sm (anti-Melo) SLE 15 - 30% --------- PLUG SHAPER HAND Mixed Connective Tissue Disease 95% (U1 nRNP, SLE 30 - 50% anti-ribonucleoprotein) Polymyositis and/or Dermatomyositis 20% --------- Scl-70 (antiDNA Scleroderma (diffuse) 20 - 35% topoisomerase) Crest 13% --------- Josefina-1 Polymyositis and/or Dermatomyositis 20 - 40% --------- Centromere B Scleroderma - Crest variant 80% Blood BLOOD SPECIMEN / Unknown 06/13/2024 2:38 PM PIANO MOVER 06/13/2024 Narrative [facility] ACCOUNT BILL - 06/14/2024 3:08 PM PIANO MOVER Performed at: 01 - [facility] [address] [place], [place] [id number] Sales Clerk Supervisor: Tacho Shoemaker PhD, Phone: [phone] Panchito Finnegan DO LAB - SEROLOGY ORDER EVI [facility] ACCOUNT BILL [address] [place] [address] * LUPUS ANTICOAGULANT PANEL W RFLX (06/13/2024 2:38 PM PIANO MOVER) PTT-LA 37.3 0.0 - 43.5 sec [facility] ACCOUNT BILL dRVVT 30.7 0.0 - 47.0 sec [facility] ACCOUNT BILL Interpretation Comment: [facility] ACCOUNT BILL Comment:No lupus anticoagula nt was detected. Blood BLOOD SPECIMEN / Unknown 06/13/2024 2:38 PM PIANO MOVER 06/13/2024 Narrative [facility] ACCOUNT BILL - 06/14/2024 7:07 PM PIANO MOVER Performed at: - [facility] [address] [id number] Sales Clerk Supervisor: Jorge Romero MD, Phone: [phone] Panchito Finnegan DO LAB - HEMATOLOGY ORD ERABLES Performing Organization Address [facility] Co de Phone Number [facility] ACCOUNT BILL [address] [place] [address] * TRE BLOOD SCREEN W/REFLEX TITER (06/13/2024 2:38 PM PIANO MOVER) TRE Negative [facility] ACCOUNT BILL Comment: Negative <1:80 Borderline 1:80 Positive >1:80 ICAP nomenclature: AC-0 For more information about Hep-2 cell patterns use ANApatterns.org, the official website for the International Consensus on Antinuclear Antibody (TRE) Patterns (ICAP). Blood BLOOD SPECIMEN / Unknown 06/13/2024 2:38 PM PIANO MOVER 06/13/2024 Narrative [facility] ACCOUNT BILL - 06/15/2024 7:07 PM PIANO MOVER Performed at: - [facility] [address] [id number] Sales Clerk Supervisor: Tacho Shoemaker PhD, Phone: [phone] Panchito Finnegan DO LAB - CHEMISTRY BECKI BUTT Performing Organization Address City/[facility]/ZIP Co de Phone Number [facility] ACCOUNT BILL [address] [place] [address] * (ABNORMAL) SED RATE AUTO (ESR) (06/13/2024 2:38 PM PIANO MOVER) Erythrocyte Sedimentation Rate Westergren 44(H) 0 - 30 mm/hr [facility] ACCOUNT BILL Blood BLOOD SPECIMEN / Unknown 06/13/2024 2:38 PM PIANO MOVER 06/13/2024 Narrative [facility] ACCOUNT BILL - 06/14/2024 7:09 AM PIANO MOVER Performed at: [address] [place] [id number] Sales Clerk Supervisor: Tacho Shoemaker PhD, Phone: [phone] Panchito Finnegan DO LAB - HEMATOLOGY ORD ERABLES Performing Organization Address City/[facility] Co de Phone Number [facility] ACCOUNT BILL [address] [place] [address] * RIBOSOMAL P PROTEIN ANTIBODY (06/13/2024 2:37 PM PIANO MOVER) Pathologist [facility] Antiribosomal P Antibody <0.2 0.0 - 0.9 AI [facility] ACCOUNT BILL Blood BLOOD SPECIMEN / Unknown 06/13/2024 2:37 PM PIANO MOVER 06/13/2024 Narrative [facility] ACCOUNT BILL - 06/14/2024 1:08 PM PIANO MOVER Performed at: [address] [place] [id number] Sales Clerk Supervisor: Tacho Shoemaker PhD, Phone: [phone] Panchito Finnegan DO LAB - CHEMISTRY ORDE RABLES Performing Organization Address [facility] Co de Phone Number [facility] ACCOUNT BILL [address] [place] [address] * (ABNORMAL) COMPLEMENT C3 C4 PANEL (06/13/2024 2:37 PM PIANO MOVER) Pathologist [facility] Complement C3 178(H) 82 - 167 mg/dL [facility] ACCOUNT BILL Complement C4 41(H) 12 - 38 mg/dL [facility] ACCOUNT BILL Blood BLOOD SPECIMEN / Unknown 06/13/2024 2:37 PM PIANO MOVER 06/13/2024 Narrative [facility] ACCOUNT BILL - 06/14/2024 1:08 PM PIANO MOVER Performed at: [address] [place], [place] [address], [place], [place] [id number] Sales Clerk Supervisor: Tacho Shoemaker PhD, Phone: [phone] Panchito Finnegan DO LAB - CHEMISTRY BECKI BUTT [facility] ACCOUNT RICHARD [address] [place] [address] * XR FOOT RIGHT WT BEARING 3VW (10/05/2023 2:07 PM CDT) Only the most recent of2 resultswithin the time period is included. Anatomical Region Laterality Modality Ankle / Foot Radiographic Marissa ging 10/05/2023 2:10 PM CDT Impressions 10/05/2023 2:14 PM CDT IMPRESSION: No acute osseous abnormality. > Interpreting Provider: Aleks Cabral MD on 10/05/2023 2:14 PM Narrative 10/05/2023 2:14 PM CDT PROCEDURE: XR FOOT RIGHT WT BEARING 3VW, [...] seen. There is no effusion. There are subchondral cysts in the lateral [...] PM Narrative 10/05/2023 2:14 PM CDT PROCEDURE: XR FOOT RIGHT WT BEARING 3VW, [...] seen. There is no effusion. There are subchondral cysts in the lateral [...] PM Narrative 10/05/2023 2:14 PM CDT PROCEDURE: XR FOOT RIGHT WT BEARING 3VW, [...] seen. There is no effusion. There are subchondral cysts in the lateral [...] PM Narrative 10/05/2023 2:14 PM CDT PROCEDURE: XR FOOT RIGHT WT BEARING 3VW, [...] seen. There is no effusion. There are subchondral cysts in the lateral [...] PM Narrative 10/05/2023 2:14 PM CDT PROCEDURE: XR FOOT RIGHT WT BEARING 3VW, [...] seen. There is no effusion. There are subchondral cysts in the lateral [...] PM Narrative 10/05/2023 2:14 PM CDT PROCEDURE: XR FOOT RIGHT WT BEARING 3VW, [...] seen. There is no effusion. There are subchondral cysts in the lateral [...] PM Narrative 10/21/2022 3:58 PM CDT PROCEDURE: XR FOOT LEFT WT BEARING 3VW, XR FOOT RIGHT WT BEARING 3VW, XR ANKLE LEFT 3VW OR MORE, XR ANKLE RIGHT 3VW OR MORE, DATE/TIME OF EXAM: 10/21/2022 1:59 PM, LOCATION [facility] INDICATION: M25.571: Arthralgia of both [...] No bony erosions or destructions are seen. No significant soft tissue swelling noted. Left foot: No fractures or dislocations seen. Mineral density is normal. Joint spaces are preserved. No bony erosions or destructions are seen. No significant soft tissue swelling noted. Procedure Note Loki Owens MD - 10/21/2022 PROCEDURE: XR FOOT LEFT WT BEARING 3VW, XR FOOT RIGHT WT BEARING 3VW,XR ANKLE LEFT 3VW OR MORE, XR ANKLE RIGHT 3VW OR MORE, DATE/TIME OF EXAM: 10/21/2022 1:59 PM, LOCATION [facility] INDICATION: M25.571: Arthralgia of both [...] PM Narrative 10/21/2022 3:58 PM CDT PROCEDURE: XR FOOT LEFT WT BEARING 3VW, XR FOOT RIGHT WT BEARING 3VW, XR ANKLE LEFT 3VW OR MORE, XR ANKLE RIGHT 3VW OR MORE, DATE/TIME OF EXAM: 10/21/2022 1:59 PM, LOCATION [facility] INDICATION: M25.571: Arthralgia of both [...] No bony erosions or destructions are seen. No significant soft tissue swelling noted. Left foot: No fractures or dislocations seen. Mineral density is normal. Joint spaces are preserved. No bony erosions or destructions are seen. No significant soft tissue swelling noted. Procedure Note Loki Owens MD - 10/21/2022 PROCEDURE: XR FOOT LEFT WT BEARING 3VW, XR FOOT RIGHT WT BEARING 3VW,XR ANKLE LEFT 3VW OR MORE, XR ANKLE RIGHT 3VW OR MORE, DATE/TIME OF EXAM: 10/21/2022 1:59 PM, LOCATION [facility] INDICATION: M25.571: Arthralgia of both [...] MICROBIOLOGY - HPF HISTORICAL (07/09/2011 5:30 AM PIANO MOVER) Only the most recent of2 resultswithin the time period is included. 07/09/2011 5:30 AM PIANO MOVER Narrative [facility] - 07/09/2011 5:30 AM PIANO MOVER Raghav Nagy MD LAB - MICROBIOLOG Y ORDERABLES [facility] Care Teams Freight Car Builder Relationship Specialty Start Date End Date Timbo Gregg MD [address] [place], [place] [phone] PCP - General Internal Medicine 02/15/24 Oliverio Ladd APRN-STRATEGIC MARKETING SPECIALIST [address] [place] [address] [place] [id number] Nurse Practitioner Nurse Practitioner Family 02/17/24
--- OUTSIDE RECORDS SUMMARY | 2024-06-28 14:44 | XMS_ITS | CONTINUITY OF CARE DOCUMENT ---
Author Name andriy humbertopeter Address Unknown Organization [facility] Address [address] [place] [address] Phone [phone] Care Team Providers Care Cataloging Assistant Name Role Phone Dariana DIALLO, Gabe Unavailable BRITTNEY SANTANA MD Unavailable BRITTNEY SANTANA MD Unavailable PROBLEMS Condition Status Date Provider Notes Long-term (current) use of other medications active Leon Jorgensen RN Microalbuminuria active Eyad Dunbar MD Exposure to SARS-associated coronavirus;NEG SWAB active Eyad Dunbar MD HTN essential active Eyad Dunbar MD Chest pain, atypical active Eyad Campbell Dyspnea completed - Eyad Dunbar MD Diastolic dysfunction active Eyad Dunbar MD Sleep apnea active Eyad Dunbar MD Sinus tachycardia completed - Eyad Dunbar MD Schizophrenia, chronic active Eyad Dunbar MD B12 deficiency active Eyad Dunbar MD Vitamin D deficiency active Eyad Campbell angioedema;DUE TO IRENE active Eyad Dunbar MD Tobacco dependence, continuous active Eyad Dunbar MD Hyperlipidemia; with high crp active Eyad Dunbar MD Screening active Eyad Dunbar MD neg tsh and a1c Obesity active Eyad Dunbar MD ENCOUNTERS Date Type Provider Location Encounter Diag nosis - In-person encounter Office Visit Gabe Westbrook MD [facility] - In-person encounter Office Visit Gabe Westbrook MD [facility] - In-person encounter Office Visit Eyad Dunbar MD [facility] Sinus tachycardiaChest pain, atypicalDiastolic dysfunctionDyspnea - In-person encounter Office Visit Eyad Dunbar MD [facility] ObesityScreeningHyperlipi demia; with high crpTobacco dependence, continuousangioedema;DUE TO ACEHTN essentialVitamin D [id number] deficiencySchizophrenia, chronicChest pain, atypicalSleep apnea VITAL SIGNS Date Observation Value Provider Body Mass Index (Ratio) 42.18 kg/m2 Brittney Westbrook MD blood pressure, cuff size regular [facility] blood pressure, diastolic 89 mm[Hg] Ja et blood pressure, systolic 137 mm[Hg] [facility] pulse rate 73 /min Georgi respiratory rate [...] blood pressure, diastolic 83 mm[Hg] Ca therine Banco blood pressure, systolic 155 mm[Hg] Cat herine John oxygen saturation, oximetry 97 % Brooklyn John respiratory rate E&M 18 /min Catheri ne Banco pulse rate 102 /min Brooklyn John weight E&M 292 [lb_av] Brooklyn John blood pressure, cuff size regular Ca therine Banco height E&M 70 [in_i] Brooklyn John weight E&M 313 [lb_av] Solomon galarza Body Mass Index (Ratio) 44.91 kg/m2 Mayrlou Dunbar MD blood pressure, cuff size large [...] atient has been counseled to quit. Eyad Dubnar MD social history reviewed E&M revi ewed - no changes required Eyad Dunbar MD smoking/tobacco cess ation, patient education and counseling yes Brooklyn John number of years as a smoker 33 a Brooklyn John smoking history, tot al pack/day 1 ppd Brooklyn Banco cigarette use yes Brooklyn John smoking status Current every day smoker C [...] Payer name Policy type / Coverage type [place] red democrat ID [facility]RON[facility] COMPLETE [facility]URE (PPO C-SNP) Medicare [id number] [facility] SERVICES Medicaid 1 [id number] ADVANCE DIRECTIVES Name Date DISCUSSED - NO DECISION MADE TREATMENT PLAN Date Name Performer [id number],C, B P today: 137/89 P rior BP: [...] a day with meals Gabe Westbrook MD [id number],C,H is stress test showed no evidence for ischemia depsite going for only 3 minutes on the treadmill. no noted ST changes Gabe Westbrook MD [id number],C,check UACR Us yelena Westbrook MD [id number],C,T he Patient was reencouraged to stop smoking. Gabe Westbrook MD [id number],B, B P today: 144/80 P rior BP: 155/83 (08/06/2021) Labs Reviewed: C reat: 0.98 (08/26/2021) C hol: 114 (08/26/2021) HDL: 43 (08/26/2021) LDL: 53 MG/DL (CALC) (08/26/2021) T (08/26/2021) Gabe Westbrook MD [id number],C,I t is atypical and i will get his latest labs and schedule him for a stress test and an echo Gabe Westbrook MD [id number],C,76 Eyad nino MD [id number],B, Eyad Serot a [id number],S,DID NOT WANT RX OR SURGERY Eyad Dunbar MD [id number],C, H is updated medication list for this problem includes: Lipitor 40 Mg Tablet (Atorvastatin) ..... 1 tablet once a day Eyad Dunbar MD [id number],S, Eyad Serot a [id number],B, Eyad Serot a [id number],B, Eyad Serot a [id number],S, neg ct pe, NEG HOTLERW Eyad Dunbar MD [id number],S, Eyad Serot a [id number],S,NEG STRESS Ball paula Dunbar MD [id number],S,PRO 19 Eyad Dunbar MD [id number],S, Eyad Serot a [id number],S, m od t o get tietarton Eyad Dunbar MD [id number],C,mod Eyad lane MD Cardiology: B P today: [...] Dunbar MD Cardiology:DID NOT WANT RX OR ZAMBRNAO RGERY Eyad Dunbar MD Cardiology: H is [...] Cardiology Eyad Dunbar MD Cardiology: daisy bonillatayadiel Dunabr MD sleep titration ordered:zhen Dunbar MD :pro [...]
--- OUTSIDE RECORDS SUMMARY | 2024-06-28 14:44 | XMS_ITS | Data Portability ---
[facility] Organization [facility] Address [address] [place] [address] Care Team Providers Care Skein Winding Operator Name Role Phone [facility] Psychia trist KEN MANDUJANO Radio Installer Automobile Assessment No assessment recorded. Plan of Treatment Reminders Order Date Submit Date Provider Last Modified By Organization Details Last Modified Time Details Appointments ANY 15 2024 02:00P Carlos A Gregg MD Not available Not available Not available Lab HbA1c (hemoglob in A1c), blood 2022 023 IMOGENE [facility], [address], [place], [address], 04/27/2023 16:02:00 lipid panel, serum 2022 023 ALLEY [facility], [address], [place], [address], 04/27/2023 16:02:00 TSH, ultra-sen sitive, serum 2023 024 [facility], [address], [place], [address], 10/05/2023 17:24:19 PSA, total, serum or plasma 2023 024 [facility], [address], [address], [place], [address], 10/05/2023 17:24:19 basic metabolic 1998 panel, serum or plasma 2023 024 ALLEY [facility], [address], [address], [place], [address], 10/05/2023 15:34:51 CBC 2023 024 shame[facility], [address], [address], [place], [address], 10/05/2023 17:24:19 HbA1c (hemoglob in A1c), blood 2023 024 shameka [facility], [address], [address], [place], [address], 10/05/2023 17:24:19 lipid panel, serum 2023 024 shameka [facility], [address], [address], [place], [address], 10/05/2023 17:24:19 albumin/c reatinine , mass ratio, urine 2023 024 shameka [facility], [address], [address], [place], [address], 10/05/2023 17:24:19 HbA1c (hemoglob in A1c), blood 2023 024 ALLEY [facility], [address], [address], [place], [address], 03/31/2024 06:26:44 lipid panel, serum 2023 024 shameka [facility], [address], [place], [address], 2024 12:35:44 Referral dentist referral - Poor dentition 2022 023 becka Simental, [address] [place] [address], [address], 05/27/2023 15:34:28 sleep medicine referral - KETAN 2022 023 becka Kirby MD, [address] [place], [address], 02/15/2024 10:45:02 diabetic ophthalmo logy referral - HBA1C 5.7% 2023 024 becka [facility], [address] , [place], [address], 07/15/2023 12:46:20 Procedures None recorded. Surgeries None recorded. Imaging LDCT, chest, for lung cancer screening 2022 023 [facility] ([facility] Scheduling), [address] [place], [address], 04/21/2023 14:51:07 LDCT, chest, for lung cancer screening [address] (Imaging), [address] [facility] [address], [place], [address], 06/27/2024 10:09:49 Medication Orders metformin ER 500 mg tablet,ex tended release 24 hr 2022 023 [facility], [address] [place] [address] , [address], [place], [place], [id number], 02/21/2024 12:43:22 OneTouch Ultra Test strips 2022 023 [facility], [address] [place] [address] , [address], [place], [place], [id number], 03/29/2023 12:28:28 losartan 25 mg tablet [address] , [address], [place], [place], [id number], 05/25/2023 12:30:08 Patient TargetsNo targets recorded. Patient Instructions Encounter Date Encounter Id Patient Instructions Last Modified By Organization Details Last Modified Time 11/24/2022 [id number] type 2 diabetes: care instructions oajao Not available 11/24/2022 15:43:20 Start Metformin, side effects were discussed Colonoscopy report from ? (A clinic in [place]) CXR report from Dentist Records Stop smoking Cardiology as referred Follow up in 6 weeks oajao Not available 11/24/2022 16:42:23 03/29/2023 [id number] Quitting Tobacco : Care Instructions oajao Not available 03/29/2023 12:32:03 body mass index: care instructions oajao Not available 03/29/2023 12:32:52 learning about healthy weight oajao Not available 03/29/2023 12:32:52 sleep apnea: car e instructions oajao Not available 03/29/2023 19:28:[address] Vyas i Note from the Pediatric Physician Assistant at [facility] Sleep medicine LDCT Stop smoking Follow up in 3 months and PRN oajao Not available 03/29/2023 12:32:27 05/25/2023 [id number] type 2 diabetes: care instructions oajao Not available 05/25/2023 12:25:50 high blood pressure: care instructions oajao Not available 05/25/2023 12:25:50 learning about h igh blood pressure oajao Not available 05/25/2023 12:25:50 Schedule a follo w up appointment with your orthopedic surgeon,, Dr Ernst Start Losartan Follow up in 3-4 weeks oajao Not available 05/25/2023 12:31:00 07/15/2023 [id number] body mass index: care instructions oajao Not [...] plasma but the decision is the medical research assistant's. oajao Not available 07/15/2023 14:20:47 02/21/2024 [id number] hip arthritis: c are instructions oamaggieo Not available 02/21/2024 12:48:21 Labs LDCT in [...] XR, chest No observ ation record ed. [address], [place], [address], 03/29/2023 12:23:10 12/31/19 23 12/30/2022 XR, chest , 2 view No observ ation record ed. [facility] [address] [place], [address], 03/29/2023 12:23:10 02/23/20 23 02/22/2023 cardi ac stres s test No observ ation record ed. [facility] [address], [place], [address], 03/29/2023 12:23:10 02/23/20 23 02/22/2023 cardi ac stres s test No observ ation record ed. [facility] [address], [place], [address], 03/29/2023 12:23:10 02/23/20 23 02/22/2023 trans -thor acic echoc ardio gram (TTE) (PROC ) No observ ation record ed. [facility] [address], [place], [address], 03/29/2023 12:23:10 04/21/20 23 04/21/2023 LDCT, chest , for lung cance r scree benitez No observ ation record ed. [facility] [address], [place], [address], 05/25/2023 12:17:34 11/09/19 24 02/03/2022 XR, hip + pelvi s, bilat eral No observ ation record ed. [facility] [address], [place], [address], 02/21/2024 12:36:42 Result Notes None recorded. Problems Name Problem SNOMED Code Status Onset Date Resolution Date Notes Provider Name and Address Organization Details Recorded Time History of pneumonia 635952372 Active 2022 Timbo Gregg MD Attn: Corey gee,[address] [place], [address], [facility] 3 14:13:01 Type 2 diabetes mellitus without complicatio n 984462276 Active 2022 Timbo Gregg MD Attn: Corey gee,[address] [place], [address], [facility] 5 10:18:59 SARS-CoV-2 vaccination declined 8029422784 Active 2022 Timbo Gregg MD Attn: Corey gee,[address] [place], [address], [facility] 3 14:32:24 Vaccination declined 7705661395 Active 2022 Timbo Gregg MD Attn: Corey gee,[address] [place], [address], [place] [facility] 3 14:32:38 Smoker 13696361 Active 2022 Timbo Gregg MD Attn: Corey gee,[address] [facility], [place], [address], [place] [facility] 3 14:32:54 Schizophren ia 44789297 Active 2022 Timbo Gregg MD Attn: Accountagustina gee,[address] [facility], [place], [address], [place] [facility] 3 18:56:24 Obstructive sleep apnea syndrome 04930332 Active 2022 Timbo Gregg MD Attn: Loriagustina gee,[address] [facility], [place], [address], [place] [facility] 3 18:56:26 Family history of malignant tumor of hypopharynx 6920467602575 4106 Active 2022 Timbo Gregg MD Attn: Corey gerard,[address] [facility], [place], [address], [place] [facility] 3 15:49:14 Family history of malignant neoplasm of lung 314673758 Active 2022 Timbo Gregg MD Attn: Loriagustina gee,[address] [facility], [place], [address], [place] [facility] 3 15:49:15 Benign essential hypertensio n 8622116 Active 2023 Timbo Gregg MD Attn: Corey gee,[address] [facility], [place], [address], [place] [facility] 5 10:19:06 Influenza vaccination declined 451777582 Active 2023 Timbo Gregg MD Attn: Corey g,[address] [facility], [place], [address], [place] [facility] 4 13:00:18 Osteoarthri tis of hip 696336956 Active 2023 Timbo Gregg MD Attn: Accountin gerard,[address], [place], [address], [facility] 13:00:20 Problem Notes None recorded. Procedures Surgical History Date Name Laterality Status Provider Name and Address Organization Details Recorded Time 07/15/19 24 Diabetic Foot Exam completed Timbo Gregg MD Attn: Accounting,[address] [facility], [place], [address], [facility] 07/15/2023 13:01:36 05/25/19 24 Diabetic Foot Exam completed Timbo Gregg MD Attn: Accounting,[address] [facility], [place], [address], [facility] 05/25/2023 13:52:53 03/29/20 23 Diabetic Foot Exam completed Timbo Gregg MD Attn: Accounting,[address] [facility], [place], [address], [facility] 03/29/2023 19:25:46 07/09/19 22 colonoscopy completed Timbo Gregg MD Attn: Accounting,[address] [facility], [place], [address], [facility] 12/07/2022 13:25:32 incision completed Timbo Gregg MD Attn: Accounting,[address] [facility], [place], [address], [facility] 10/06/2022 14:09:42 anterior tracheostomy completed Timbo Gregg MD Attn: Accounting,[address] [facility], [place], [address], [facility] 10/06/2022 14:10:11 procedure on lymph node completed Timbo Gregg MD Attn: Accounting,[address] [facility], [place], [address], [facility] 11/24/2022 15:41:10 Imaging Results Imaging Date Name Status LastModified by Organization Details LastModified Time 05/07/2021 XR, chest completed [facility] [address], [place], [address], 03/29/2023 12:23:10 12/30/2022 XR, chest, 2 view completed [facility] [address] [place], [address], 03/29/2023 12:23:10 02/22/2023 cardiac stress test completed [facility] [address], [place], [address], 03/29/2023 12:23:10 02/22/2023 cardiac stress test completed [facility] [address], [place], [address], 03/29/2023 12:23:10 02/22/2023 trans-thoracic echocardiogram (TTE) (PROC) completed [facility] [address], [place], [address], 03/29/2023 12:23:10 04/21/2023 LDCT, chest, for lung cancer screening completed [facility] [address] [place], [address], 05/25/2023 12:17:34 02/03/2022 XR, hip + pelvis, bilateral completed [facility] [address] [facility] [address], [address], 02/21/2024 12:36:42 Procedure Notes None recorded. Medical Equipment None Reported. Allergies Allergen ID Allergen Name Allergen Category Reaction Reaction Severity Criticality Documentation Date Start Date Code Code System Note Provider Name and Address Organization Details Recorded Time 576506 lisinopri l medicatio n anaphylax is Not available high 10/06/2022 52934 RxNorm Not Available Not Available Not Available 347397 Product containin g angiotens in-conver ting enzyme inhibitor (product) medicatio n anaphylax is severe Not available 10/06/2022 48514 009 SNOMED Not Available Not Available Not [...] strips Take 1 strip every day by miscell. route around the clock for 90 days. [...] Not Available Vitals Date Recorded Body height Body mass index (BMI) Body weight Heart rate Oxygen saturation Oxygen saturation in Arterial blood by Pulse oximetry Respiratory rate Systolic blood pressure Diastolic blood pressure Provider Name and Address Organization Details Last Updated DateTime 3 175.26 cm 45.3 kg/m2 358487. 86 g 70 /min 94 % 94 % 16 /min 116 mm[Hg] 80 mm[Hg] Sweetie Blake [place] - [facility] 3 15:36:39 Date Recorded Body height Body mass index (BMI) Body weight Oxygen saturation Oxygen saturation in Arterial blood by Pulse oximetry Heart rate Respiratory rate Systolic blood pressure Diastolic blood pressure Provider Name and Address Organization Details Last Updated DateTime 3 175.26 cm 42.9 kg/m2 505354. 66 g 95 % 95 % 84 /min 18 /min 124 mm[Hg] 80 mm[Hg] Sweetie Blake MA [place] - [facility] 3 12:05:05 Date Recorded Body height Body mass index (BMI) Body weight Oxygen saturation Oxygen saturation in Arterial blood by Pulse oximetry Heart rate Body temperature Systolic blood pressure Diastolic blood pressure Provider Name and Address Organization Details Last Updated DateTime 4 175.26 cm 43.9 kg/m2 012134. 93 g 97 % 97 % 72 /min 97.8 [degF] 130 mm[Hg] 90 mm[Hg] Sweetie Blake MA [facility] 4 11:52:46 Date Recorded Body height Body mass index (BMI) Body weight Oxygen saturation Oxygen saturation in Arterial blood by Pulse oximetry Heart rate Respiratory rate Systolic blood pressure Diastolic blood pressure Provider Name and Address Organization Details Last Updated DateTime 4 175.26 cm 43.9 kg/m2 167668. 93 g 95 % 95 % 74 /min 20 /min 126 mm[Hg] 80 mm[Hg] Sweetie Blake MA [facility] 4 12:38:14 Date Recorded Body height Body mass index (BMI) Body weight Heart rate Oxygen saturation Oxygen saturation in Arterial blood by Pulse oximetry Respiratory rate Systolic blood pressure Diastolic blood pressure Provider Name and Address Organization Details Last Updated DateTime 4 175.26 cm 44.7 kg/m2 886541. 41 g 72 /min 95 % 95 % 18 /min 124 mm[Hg] 84 mm[Hg] Sweetie Blake MA [place] - [facility] 4 12:34:36 Social History Question Answer Notes LastModified by Organizat ion Details LastModified Time Tobacco Smoking Status Current Some Day Smoker KARLENE Casanova [facility] 07/15/2023 12:36:29 What Is Your Level Of [...] Response Coronary Artery Disease N Other Y High Blood Pressure Y Atrial Fibrillation N Thyroid Problems N Kidney or Bladder Problems N Blood Clots N COPD N Depression N GI Problems N Skin Problems N Anemia N Heart Attack (OR) N Anxiety Disorder Y Diabetes Y Muscle, Joint, or Bone Problems N Seizures/Epilepsy N Acid Reflux (GERD) N Cancer N Stroke N Asthma N Allergies N High Cholesterol Y Hepatitis N Liver Disease N Headaches N Heart Failure N Osteoporosis N Past Encounters Encounter ID Performer Location Encounter Start Date Encounter Closed Date Diagnosis/Indication Diagnosis SNOMED-CT Code Diagnosis ICD10 Code Diagnosis Note [id number] MD Serena Sterling (Adult Med) [address] [place] [id number] 10/06/2022 13:08:09 10/08/2022 12:20:16 General examination of patient 355434956 Z00.01 Type 2 esha betes mellitus without complication 073722588 E11.9 SARS-CoV-2 vaccination declined 7423255870 Z28.21 History of pneumonia 161 328113 Z87.01 Schizophrenia 08376208 F 20.9 Obstructiv e sleep apnea syndrome 06399358 G47.33 Screening for malignant neoplasm of prostate 003391741 Z12.5 Immunization advised 310 269784 Z71.9 Vaccination declined 930 3569345 Z28.21 Smoker 20460237 F17.200 Chest pain 35949139 R07. 9 [id number] MD Serena Sterling (Adult Med) [address] [place] [phone] 11/24/2022 14:58:11 11/25/2022 12:17:31 Type 2 diabetes mellitus without complication 214726175 E11.9 HBA1C 6.4%Restar t Metformin ER 500 mg Family his tory of malignant neoplasm of lung 717223294 Z80.1 Family his tory of malignant tumor of hypopharynx 8821608427 3014317 Z80.8 Impaired dentition 22720 4008 K03.9 Screening for cancer 158 91721 Z19.1 CXR 2021 (The report is pending)Co lonoscopy 2021 (The report is pending)PS A 09/23/2022 nl [id number] MD Serena Sterling (Adult Med) [address] [place] [phone] 03/29/2023 11:31:48 03/30/2023 12:52:06 Type 2 diabetes mellitus without complication 232306548 E11.9 Labs OV 11/24/2022 HBA1C 6.4%Restar t Metformin ER 500 mg Screening for cancer 158 91776 Z19.1 Colonoscop y 07/09/2021, Q 5 years OV 11/24/2022 CXR 2021 (The report is pending)Co lonoscopy 2021 (The report is pending)PS A 09/23/2022 nl Nicotine dependence 5629 4008 Z87.891 Body mass index 40+ - severely obese 513446861 Z68.41 Obstructiv e sleep apnea syndrome 31211557 G47.33 [id number] MD Serena Sterling (Adult Med) [address] [place] [phone] 05/25/2023 11:43:28 05/26/2023 09:34:07 Benign essential hypertension 1425328 I10 Uncontroll edAdd Losartan 25 mg po daily, side effects were discussedC ontinue Amlodipine and Metoprolol Type 2 esha betes mellitus without complication 556131932 E11.9 Labs OV 11/24/2022 HBA1C 6.4%Restar t Metformin ER 500 mg [id number] MD Serena Sterling (Adult Med) [address] [place] [phone] 07/15/2023 12:00:31 07/18/2023 16:43:34 Benign essential hypertension 9014772 I10 Stable OV 05/25/2023Un controlled Add Losartan 25 mg po daily, side effects were discussedC ontinue Amlodipine and Metoprolol Type 2 esha betes mellitus without complication 901298383 E11.9 Labs OV 05/25/2023La bs OV 11/24/2022 HBA1C 6.4%Restar t Metformin ER 500 mg Medication monitoring 39 0043908 Z51.81 Screening for malignant neoplasm of prostate 631399992 Z12.5 Body mass index 40+ - severely obese 524386947 Z68.41 [id number] Timbo Gregg MD [facility] (Adult Med) [address] [place] [phone] 02/21/2024 12:22:45 02/24/2024 08:11:56 Benign essential hypertension 2154879 I10 StableOV 07/15/2023S table OV 05/25/2023Un controlled Add Losartan 25 mg po daily, side effects were discussedC ontinue Amlodipine and Metoprolol Type 2 esha betes mellitus without complication 503980173 E11.9 He has discontinu ed his Metformin on his own. I really don't think I need it, my sugar is okay OV 07/15/2023L abs OV 05/25/2023La bs OV 11/24/2022 HBA1C 6.4%Restar t Metformin ER 500 mg Influenza vaccination declined 523700424 Z28.21 Osteoarthritis of hip 23 1117425 M16.9 History of nicotine dependence 7702415685 96991646 Z87.891 [place] Tobacco QuitlineHe has failed the [...] MEDICARE OR MEDICARE REPLACEMENT PRIMARY) Arsh Montanez [id number] Arsh Montanez 11/24/2022 1 [facility] (MEDICARE REPLACEMENT/AD VANTAGE - PPO) [id number] Arsh Montanez [id number] Arsh Tarik 03/29/2023 2 [place] WHEN MEDICARE OR MEDICARE REPLACEMENT PRIMARY) Arsh Montanez [id number] Arsh Tarik 03/29/2023 1 [employer] (MEDICARE REPLACEMENT/AD VANTAGE - PPO) [id number] Arsh Montanez [id number] Arsh Tarik 05/25/2023 2 [place] OR MEDICARE REPLACEMENT PRIMARY) Arsh Montanez [id number] Arsh Montanez 05/25/2023 1 [facility] (MEDICARE REPLACEMENT/AD VANTAGE - PPO) [id number] Arsh Montanez [id number] Arsh Tarik 07/15/2023 2 [place] WHEN [place] OR MEDICARE REPLACEMENT PRIMARY) Arsh Montanez [id number] Arsh Montanez 07/15/2023 1 [facility] (MEDICARE REPLACEMENT/AD VANTAGE - PPO) [id number] Arsh Montanez [id number] Arsh Montanez 02/21/2024 2 [place] OR MEDICARE REPLACEMENT PRIMARY) Arsh Montanez [id number] Arsh Montanez 02/21/2024 1 [facility] (MEDICARE REPLACEMENT/AD VANTAGE - PPO) [id number] Arsh Montanez [id number] Arsh Montanez Notes Date Note Type Note [...] a white spot, it healed up Mr Montanez returns, he is unable to get seen by the real estate administrative assistant unless he settles his outstanding bill. He would like to get screened for cancer, he had a lesion on the inner part of the mouth (Lower lip) that has since healed, he has a strong FHX. of cancer and he had A CXR and a colonoscopy last year. Timbo Gregg MD Attn: Accounting,[address] [facility], [place], [address], [facility] 11/24/2022 16:43:24 03/29/2023 text/html Diabetes F/URepo rted [...] exam Timbo Gregg MD Attn: Accounting,[address] [facility], [place], [address], [facility] 03/29/2023 19:30:14 05/25/2023 text/html AnkleReported bypatient.Location:[facility] ateral (L>R) Quality:aching Severity:moderate; pain level 2/10; [...] He had seen an orthopedic surgeon at [facility] for this issue and recently requested that I provide a letter, my suggestion was that his records be forwarded. Timbo Gregg MD Attn: Accounting,[address] [place], [address], [facility] 05/25/2023 13:54:31 07/15/2023 text/html Hypertension F/UReported bypatient.Associated [...] MD Attn: Accounting,[address] , [place], [address], [place] [facility] 07/15/2023 14:21:10 02/21/2024 text/html Diabetes [...] and he has an appointment with the manager home. Timbo Gregg MD Attn: Accounting,[address] [place], [address], [facility] 02/21/2024 13:01:21
--- OUTSIDE RECORDS SUMMARY | 2024-06-28 14:44 | XMS_ITS | Data Portability ---
Author Organization [facility] Keep Me Certified, Main Office Address [address] [place] [address] Care Team Providers Care Shore Working Supervisor Name Role Phone EUGENIA KATE Primary Care Provider KATE ZAMORA Referring Provider [phone] Assessment No assessment recorded. Plan of Treatment Reminders Order Date Submit Date Provider Last Modified By Organization Details Last Modified Time Details Appointments None recorded. Lab vitamin D, 25-hydroxy, total, serum [address] (Lab), [address] [place], [address], 3 15:03:55 TRE + rf (antinuclea r antibodies + rheumatoid factor), quantitativ e, serum [address] (Lab), [address] [place], [address], 3 15:03:14 CBC w/ auto diff [address] (Lab), [address] [place], [address], 3 15:03:30 HbA1c (hemoglobin A1c), blood [address] (Lab), [address] [place], [address], 3 15:04:33 CMP, serum or plasma [address] (Lab), [address] [place], [address], 3 15:02:20 lipid panel, serum [address] (Lab), [address] [place], [address], 3 15:02:35 iron + TIBC + ferritin, serum [address] (Lab), [address] [place], [address], 3 15:02:50 TSH, serum, reflex free T4 [address] (Lab), [address] [place], [address], 3 15:01:36 urinalysis, complete [address] (Lab), [address] [place], [address], 3 15:02:08 vitamin B12, serum [address] (Lab), [address] [place], [address], 3 15:04:19 lipid panel, serum [address] (Lab), [address] [place], [address], 4 09:41:45 TSH, serum or plasma [address] (Lab), [address] [place], [address], 4 09:41:45 CBC [address] (Lab), [address] [place], [address], 4 09:41:45 PSA, serum or plasma [address] (Lab), [address] [place], [address], 4 09:41:44 glycohemogl obin, total, blood 2023 024 [facility] (Lab), [address] [place], [address], 4 07:36:19 CMP, serum or plasma 2023 024 [facility] (Lab), [address] [place], [address], 4 14:42:33 Referral rheumatolog ist referral - Please call patient to schedule an appointment . Thank you. 2023 024 [facility], [address], [address], [place], [address], 5 12:04:10 Procedures colonoscopy screening (PROC) - *Please call pt to schedule* 2023 024 [email or web address] Lyndsey Ervin MD, [address] [facility], [address], [place], [address], 4 11:37:20 Surgeries None recorded. Imaging None recorded. Medication Orders None recorded. Patient TargetsNo targets recorded. Patient Instructions Encounter Date Encounter Id Patient Instructions Last Modified By Organization Details Last Modified Time 02/08/2024 [id number] dementia rating scale-2* ALLEY Not available 02/15/2024 10:55:08 multi-dimensiona l health assessment questionnaire* ALLEY Not available 02/15/2024 10:55:14 care plan* Not available 02/07 15:34:45 advance care planning: care instructions Not available 02/08/2024 15:34:45 advance directiv es: care instructions Not available 02/08/2024 15:34:45 [place] Advance Directives Not available 02/08/2024 15:34:45 Personalized Hea lt Plan and Screening Recommendations Advance Directives - Do you have one? No Advance Directives - Do we have your advance directive on file in your health record? Primary Prevention/Interven tion (prevents or decreases the chance of common diseases from occurring) Smoking Risk: Smoker Alcohol Misuse Screening: Positive Refer to attached alcohol cessation handout Refer to attached handout and prescription will be sent to pharmacy Decrease alcohol intake to 2 or less servings per day Continue to consider stopping alcohol and call if we can assist you Weight: Appropriate Overwei ght Physical activity: Need more exercise/physical activity Nutrition: Good Average Fall Risk (screened today): Low Vaccines Pneumococcal: Ordered Recommended today Recommended today, but you have declined Influenza: Ordered Recommended today Recommended today, but you have declined Chronic Disease Risks Stroke: Low Risk Intermediate Risk I have no recommendations Act bianca diagnosis, Continue current treatment plan Heart Attack: Low risk Intermediate Risk I have no recommendations Act bianca diagnosis, Continue current treatment plan Clogging of the Arteries: Low risk Intermediate Risk I have no recommendations Act bianca diagnosis, Continue current treatment plan Diabetes: Low Risk Intermediate Risk Active diagnosis, Continue current treatment plan Secondary Prevention/Interven tion (detects treatable diseases before they may cause symptoms, disability, or ) Prostate Cancer Screening: No PSA screening necessary Colon Cancer Screening: Colonoscopy Date Screening Last Performed: Eye Disease Screening: Dementia Risk: Low Depression Screening: Negative Active diagnosis, Continue current treatment plan Not available 02/08/2024 15:30:55 Reason for Referral Ret[place]er Referral for Autoimmune connective tissue disorder positive TRE Please call patient to schedule an appointment. Thank you. Referring Physician: Oliverio Ladd, Family Medicine, Encounter Date: 02/08/2024 Results Created Date Observation Date Name Description Value Unit Range Abnormal Flag Note LastModifiedBy Organization Detail LastModifiedTime Result Notes None recorded. Problems Name Problem SNOMED Code Status Onset Date Resolution Date Notes Provider Name and Address Organization Details Recorded Time Dry skin dermatitis 248784446 Active 2021 Not Available [facility], [facility] 3 16:12:57 Onychomycosis 475532569 Active 2020 Not Available [facility] 3 16:12:57 Hypertensive disorder 04406927 Active 2022 CHEYENNE Leo, [facility] [employer] [facility] 3 13:59:30 Osteoarthriti s 378477677 Active 2022 JONNA Peng [address], [address], [place], [address] , [employer] [facility] 3 14:08:04 Autoimmune connective tissue disorder 351703064 Active 2022 JONNA Peng [address], [address], [place], [address] , [employer] [facility] [employer] [facility] 3 14:20:45 Vitamin D deficiency 50404591 Active 2022 JONNA Peng [address], [address], [place], [address] , [employer] [facility] 3 14:22:50 Cobalamin deficiency 819742854 Active 2022 JONNA Peng [address], [address], [place], [address] , [employer] [facility] 3 14:23:03 Obstructive sleep apnea syndrome 18819287 Active 2022 JONNA Peng [address], [address], [place], [address] , [employer] [facility] 3 14:43:02 Notes:Luis Manuel Gregg MD; JONNA Chacko get [facility] sleep study Medical History: Anxiety/Schizophrenia Nicotine use Obesity Hypertension Hyperlipidemia T2DM with neuropathy SHAUN Vit B12 deficiency Vit D deficiency (+) TRE OA Onychomycosis Procedure History: Tracheostomy 2021 Colonoscopy 2021 Problem Notes None recorded. Procedures Surgical History Date Name Laterality Status Provider Name and Address Organization Details Recorded Time Medicare Wellness CPT Code, subsequent completed Gina Milton RN [place] [employer] [facility] 02/08/2024 15:10:31 Imaging Results None recorded. Procedure Notes None recorded. Medical Equipment None Reported. Allergies Allergen ID Allergen Name Allergen Category Reaction Reaction Severity Criticality Documentation Date Start Date Code Code System Note Provider Name and Address Organization Details Recorded Time 46176 lisinopri l medicatio n angioedem a Not available Not available 07/21/2022 14290 RxNorm Not Available [facility] 3 16:13:53 Medications Name Sig Start Date Stop Date Status Note LastModified by Organization Details LastModified Time atorvastati n 40 mg tablet active Not Available Not Available Not Available ammonium lactate 12 % lotion apply to both feet daily as needed for dry skin 05/02 completed Not Available Not Available Not Available risperidone 4 mg tablet active Not Available Not Available Not Available FreeStyle Lancets 28 gauge 05/02 completed Not Available Not Available Not Available haloperidol decanoate 100 mg/mL intramuscul ar solution 05/02 completed Not Available Not Available Not Available prednisone 20 mg tablet 05/02 completed Not Available Not Available Not Available peg-electro lyte solution 420 gram oral solution 05/02 completed Not Available Not Available Not Available triamcinolo ne acetonide 0.1 % topical cream active Not Available Not Available Not Available trazodone 100 mg tablet 05/02 completed Not Available Not Available Not Available OneTouch Ultra Test strips active Not Available Not Available Not Available amlodipine 10 mg tablet active Not Available Not Available Not Available trazodone 150 mg tablet active Not Available Not Available Not Available metformin 1,000 mg tablet active Not Available Not Available Not Available promethazin e 25 mg tablet 05/02 completed Not Available Not Available Not Available ursodiol 300 mg capsule active Not Available Not Available Not Available haloperidol 10 mg tablet active Not Available Not Available Not Available losartan 25 mg tablet active Not Available Not Available No t Available benztropine 1 mg tablet active Not Available Not Available Not Available metoprolol tartrate 50 mg tablet active Not Available Not Available No t Available hydrochloro thiazide 12.5 mg capsule 02/01 completed Not Available Not Available Not Available omeprazole 20 mg capsule,del ayed release active Not Available Not Available Not Available hydroxyzine HCl 25 mg tablet active Not Available Not Available Not Available mupirocin 2 % topical ointment apply to skin fissure daily 05/02 completed Not Available Not Available Not Available metformin ER 500 mg tablet,exte nded release 24 hr active Not Available Not Available Not Available hydrochloro thiazide 12.5 mg tablet active Not Available Not Available Not Available peg 3350-electr olytes 236 gram-22.74 gram-6.74 gram-5.86 gram solution take as directed active Not Available Not Available No t Available [employer] Lite Meter kit 05/02 completed Not Available Not Available Not Available Vitals Date Recorded Body mass index (BMI) Body height Oxygen saturation Oxygen saturation in Arterial blood by Pulse oximetry Heart rate Respiratory rate Body weight Provider Name and Address Organization Details Last Updated DateTime 3 41.3 kg/m2 175.26 cm 98 % 98 % 89 /min 16 /min 982464. 86 g Not Available [employer] 3 16:12:39 Date Recorded Body height Body mass index (BMI) Body weight Body temperature Heart rate Oxygen saturation Oxygen saturation in Arterial blood by Pulse oximetry Systolic blood pressure Diastolic blood pressure Provider Name and Address Organization Details Last Updated DateTime 3 175.26 cm 43.7 kg/m2 678172. 34 g 97.1 [degF] 75 /min 96 % 96 % 146 mm[Hg] 82 mm[Hg] Lorin Maynard CMA [facility] [employer] 3 13:59:08 Date Recorded Body height Body mass index (BMI) Body weight Body temperature Heart rate Oxygen saturation Oxygen saturation in Arterial blood by Pulse oximetry Systolic blood pressure Diastolic blood pressure Provider Name and Address Organization Details Last Updated DateTime 3 175.26 cm 43.1 kg/m2 049680. 97 g 97.1 [degF] 64 /min 94 % 94 % 110 mm[Hg] 68 mm[Hg] Siena Carvajal MA [facility] [employer] 3 10:18:57 Date Recorded Body height Body mass index (BMI) Body weight Body temperature Heart rate Oxygen saturation Oxygen saturation in Arterial blood by Pulse oximetry Systolic blood pressure Diastolic blood pressure Provider Name and Address Organization Details Last Updated DateTime 4 175.26 cm 44.3 kg/m2 806083. 71 g 98.8 [degF] 99 /min 95 % 95 % 134 mm[Hg] 88 mm[Hg] Gina Milton RN [place] - [employer] 15:15:09 Social History Question Answer Notes LastModified by Organizat ion Details LastModified Time Tobacco Smoking Status Current Every Day Smoker Not Available [employer] 07/21/2022 16:11:39 What Is Your Level Of Alcohol Consumption? Moderate [email or web address] Information not available 02/01/2023 What Is Your Level Of Caffeine Consumption? Moderate Information not available 02/01/2023 Have You Ever Been Counseled For Unhealthy Alcohol Use? No [email or web address] Information not available 02/01/2023 Do You Use Any Illicit Or Recreational Drugs? No [email or web address] Information not available 02/01/2023 Has Tobacco Cessation Counseling Been Provided? No [email or web address] Information not available 02/01/2023 Sex: Unknown Functional Status None recorded. Mental Status None recorded. Family History Relationship Description Onset Age of this Age Resolved Age Notes LastModified by Organization Details LastModified Time Father Family history of malignant neoplasm [email or web address] Not available 2022 14:00:03 Maternal Grandfather Hypertensive disorder [email or web address] Not available 2022 14:00:12 Medical History Condition Response DIABETES, TYPE Y HYPERTENSION Y Past Encounters Encounter ID Performer Location Encounter Start Date Encounter Closed Date Diagnosis/Indication Diagnosis SNOMED-CT Code Diagnosis ICD10 Code Diagnosis Note [id number] [facility] [address] [place] [address] 04/02/2021 00:00:00 04/03/2021 07:05:03 [id number] [facility] [address] [place] [address] 09/14/2021 00:00:00 09/14/2021 12:11:17 [id number] [facility] [address] [place] [address] 12/14/2021 00:00:00 12/15/2021 10:49:55 [id number] _[facility]_ DEFAULT_1 _1 , 03/19/2022 00:00:00 03/21/2022 16:13:10 [id number] [facility] [place] [address] [place] [address] 07/15/2022 00:00:00 07/15/2022 15:59:53 [id number] JONNA Peng [facility] Primary Care [facility] [address] [facility] [place] [address] 02/01/2023 13:52:32 02/01/2023 14:48:53 Osteoarthritis 189403863 M19.90 stable with OTC prn Essential hypertension 17467158 I10 stable with use of metoprolol and amlodipine Abdominal pain 02631098 R10.9 Denies N/V/D, denies pain currentlyH ad colonoscop y at least 2 years ago-he is on the 5 year planWas going to have explorator y lap with a previous surgeon but declined to go through with itNotes lump to abdomen on past examPlan to review records-po ssible EGD or CT to rule out Autoimmune connective tissue disorder 091333188 M35.9 Notes generalize d pains to hips/chest /back/stom achHas never been tested for autoimmune diseaselab s obtained Vitamin D deficiency 347 55544 E55.9 Cobalamin deficiency 190 117797 E53.8 Diabetes mellitus 441016 09 E11.9 Notes being stable with metformin usage (uses 1 time/day)N otes last A1c was in the 6 range approx 2 months agodoesn't check his blood sugars Adult heal th examination 194072518 Z00.00 Encouraged fresh fruits and veggiesInc rease daily water intakeEnco urage 30 mins of daily exerciseCo lonoscopy- due in the next 2-3 yearsdecli hector flu shotsmoker -declines interventi on [id number] JONNA Peng [facility] Primary Care [facility] [address] [place] [address] 03/17/2023 10:03:45 03/17/2023 10:41:06 Prediabetes 135915298 R73.03 pt notified of A1c 5.8He is currently on metformin once dailyplans to f/u with own primary in [place] Autoimmune connective tissue disorder 959705766 M35.9 Pt notified of positive ANAgeneral ized pains continue to hips/chest /backHe plans to f/u with his primary for referral to rheumatolo gy Notes generalize d pains to hips/chest /back/stom achHas never been tested for autoimmune diseaselab s obtained Laboratory test result abnormal 732939203 R89.9 discussed all abnormal labs from [id number] Moody Kirby MD [facility] [address] [place] [address] 07/13/2023 10:30:56 07/13/2023 12:44:52 [id number] JONNA Peng [facility] [place] [facility] [address] [facility] [address] [place] [address] 02/08/2024 14:56:24 02/08/2024 15:41:13 Adult health examination 034514780 Z00.00 Encouraged fresh fruits and veggiesInc rease daily water intakeEnco urage 30 mins of daily exerciseCo lonoscopy- due in the next 2-3 yearsdecli hector flu shotsmoker -declines interventi on Screening for disorder 569099933 Z13.9 Autoimmune connective tissue disorder 413179033 M35.9 Pt notified of positive ANAgeneral ized pains continue to hips/chest /backHe plans to f/u with his primary for referral to rheumatolo gy Notes generalize d pains to hips/chest /back/stom achHas never been tested for autoimmune diseaselab s obtained Screening for malignant neoplasm of colon 558845394 Z12.11 Diabetes m ellitus screening 332847290 Z13.1 Screening for malignant neoplasm of prostate 529375552 Z12.5 Thyroid di sorder screening 583152340 Z13.29 Hyperlipid emia screening 718351060 Z13.220 Anemia screening 5107050 07 Z13.0 Health Concerns Section Related Observation LastModified by Organization Detai ls LastModified Time None Recorded Concern Status LastModified by Organization Details LastModified Time None Recorded Advance Directives Directive None Recorded Payers Encounter Date Sequence Insurance Name Policy Number Policy Whitaker Covered Member ID Whitaker Member ID Guarantor Name 02/01/2023 1 [employer] (MEDICARE REPLACEMENT/AD VANTAGE - HMO) [id number] Arsh Montanez [id number] Arsh Adrian Tarik 02/01/2023 2 [place] Arsh Montanez [id number] Arsh Montanez 03/17/2023 1 [employer] (MEDICARE REPLACEMENT/AD VANTAGE - HMO) [id number] Arsh Montanez [id number] Arsh Montanez 03/17/2023 2 [place] Arsh Montanez [id number] Arsh Montanez 07/13/2023 1 [employer] (MEDICARE REPLACEMENT/AD VANTAGE - HMO) [id number] Arsh Montanez [id number] Arsh Montanez 07/13/2023 2 [place] [facility] Arsh Montanez [id number] Arsh Montanez 02/08/2024 1 [facility] (MEDICARE REPLACEMENT/AD VANTAGE - HMO) [id number] Arsh Montanez [id number] Arsh Montanez 02/08/2024 2 [place] WHEN MED[place]ARE OR MEDICARE REPLACEMENT PRIMARY) Arsh Montanez [id number] Arsh Montanez Notes Date Note Type Note Provider Name and Address Organization Details Recorded Time 02/01/2023 text/html Pt is here to get a third opinion. Was tested for HIV and cancer. arthritis to hips knees and ankles htn diabetes ANÍBAL Peng-Heidi [address], [address], [place], [address], [employer] 02/01/2023 14:49:52 03/17/2023 text/html Pt is here to f/u on labs ANÍBAL Peng-Heidi [address], [address], [place], [address], [employer] 03/17/2023 10:43:11 07/13/2023 text/html Patient left before seen. Moody Kirby MD [address], [address], [place], [address], [employer] 07/13/2023 12:47:14 02/08/2024 text/html pt is here for physical Oliverio Ladd, CATECHIST-C [address], [facility] [address], [place], [address], [place] [employer] [facility] 02/08/2024 15:38:06
--- OUTSIDE RECORDS SUMMARY | 2024-06-28 14:44 | XMS_ITS | Clinical Summary ---
Author Organization [facility] Address [address] [place] [address] Care Team Providers Care Instructor Nurse Name Role Phone Timbo Gregg MD Primary Care Provider Oliverio Ladd APRN-[employer] Unavailable [phone] Source Comments [facility],non-owned Affiliates and Associated Physician Practices is amultiple site organization consisting of ambulatory clinics and hospital sitesin [place], [place], [place] and [place]. This disclosure is being madepursuant to the Care Everywhere program and may not contain all information available regarding this patient. Last updated 18.[facility] Allergies Active Allergy Reactions Criticality Noted Date [...] 06/13/2024 Discontinued( List Clean-Up) Fish Oil-Cholecalcifer ol (Holabird-3 Fish Oil/Vitamin D3) [id number] MG-UNIT CAPS Take 1,000 mg by mouth [...] Department Care Team Description 06/13/2024 2:55 PM FAMILY LAWYER - 06/13/2024 11:59 PM FAMILY LAWYER Hospital Encounter [facility] Imaging Services [address] [place] [address] Timbo Gregg MD Discharge Disposition: Home or Self Care 06/13/2024 1:20 PM FAMILY LAWYER Office Visit [facility] Medical Group - Rheumatology [address], [address] [place] [address] Panchito Finnegan DO Polyarthralgia (Primary Dx); Positive [...] Comments Blood Pressure 124/80 06/13/2024 1:11 PM FAMILY LAWYER Pulse 70 06/13/2024 1:11 PM FAMILY LAWYER Temperature 36.1 C (97 F) 06/13/2024 1:11 PM FAMILY LAWYER Respiratory Rate 16 06/13/2024 1:11 PM FAMILY LAWYER Oxygen Saturation 95% 06/13/2024 1:11 PM FAMILY LAWYER Inhaled Oxygen Concentration - - Weight 129.3 kg (285 lb) 06/13/2024 1:11 PM FAMILY LAWYER Height 175.3 cm (5' 9 ) 06/13/2024 1:11 PM FAMILY LAWYER Body Mass Index 42.09 06/13/2024 1:11 PM FAMILY LAWYER Plan of Treatment Upcoming Encounters Date Type Department Care Team (Late st Contact Info) Description 07/03/2024 11:00 AM FAMILY LAWYER Office Visit [facility] - Rheumatology [address], [address] [place] [address] Panchito Finnegan, [address] [place] [address] Health Maintenance Due Date Last [...] - URINE PROTEIN SCREENING 05/23/2024 MEDICARE AWV CALENDAR YEAR 2024 HEPATITIS B VACCINE Completed 08/20/2013, 10/09/2010, 05/25/2010 HIB VACCINE Aged Out No longer eligi ble based on patient's age to complete this topic HPV VACCINE Aged Out No longer eligi ble based on patient's age to complete this topic Procedures Procedure Name Priority Date/Time Associated Diagnosis Comments XR PELVIS W BILAT HIP 1VW Routine 06/13/2024 3:34 PM FAMILY LAWYER Chronic left hip pain XR KNEE BILAT 2VW OR LESS Routine 06/13/2024 3:34 PM FAMILY LAWYER Chronic pain of left knee XR LUMBAR SPINE 4VW OR MORE Routine 06/13/2024 3:34 PM FAMILY LAWYER Chronic midline low back pain without sciatica ERYTHROCYTE SEDIMENTATION RATE Routine 06/13/2024 2:38 PM FAMILY LAWYER Polyarthralgia LUPUS ANTICOAGULANT PANEL W RFLX Routine 06/13/2024 2:38 PM FAMILY LAWYER Positive TRE (antinuclear antibody) CARDIOLIPIN ANTIBODY IGA/IGG/IGM PANEL Routine 06/13/2024 2:38 PM FAMILY LAWYER Positive TRE (antinuclear antibody) TRE PANEL COMPREHENSIVE Routine 06/13/2024 2:38 PM FAMILY LAWYER Positive TRE (antinuclear antibody) TRE BLOOD SCREEN W/REFLEX TITER Routine 06/13/2024 2:38 PM FAMILY LAWYER Positive TRE (antinuclear antibody) RIBOSOMAL P PROTEIN ANTIBODY Routine 06/13/2024 2:37 PM FAMILY LAWYER Positive TRE (antinuclear antibody) COMPLEMENT C3 C4 PANEL Routine 2:37 PM FAMILY LAWYER Positive TRE (antinuclear antibody) from Last 3 Months Results * XR Pelvis W Bilat Hip 1Vw (06/13/2024 3:34 PM FAMILY LAWYER) Anatomical Region Laterality Modality Pelvis Radiographic Marissa ging 06/13/2024 5:09 PM FAMILY LAWYER Impressions 06/13/2024 5:12 PM FAMILY LAWYER IMPRESSION: 1. No significant hip findings. 2. 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 No acute findings. 2. Mild bilateral knee primary osteoarthritis > Interpreting Provider: Sarah Mchugh MD on 06/13/2024 5:13 PM Narrative 06/13/2024 5:13 PM FAMILY LAWYER PROCEDURE: XR KNEE BILAT 2VW OR LESS [...] Spine 4Vw or More (06/13/2024 3:34 PM FAMILY LAWYER) Anatomical Region Laterality Modality Spine Radiographic Marissa ging 06/13/2024 5:08 PM FAMILY LAWYER Impressions 06/13/2024 5:09 PM FAMILY LAWYER IMPRESSION: 1. L3-L4 grade 1-2 degenerative subluxation > Interpreting Provider: Sarah Mchugh MD on 06/13/2024 5:09 PM Narrative 06/13/2024 5:09 PM FAMILY LAWYER PROCEDURE: XR LUMBAR SPINE 4VW OR MORE [...] CARDIOLIPIN ANTIBODY IGA/IGG/IGM PANEL (06/13/2024 2:38 PM FAMILY LAWYER) Cardiolipin Antibody IgG <9 0 - 14 [...] BLOOD SPECIMEN / Unknown 06/13/2024 2:38 PM FAMILY LAWYER 06/13/2024 Narrative [facility] ACCOUNT BILL - 06/14/2024 5:07 PM FAMILY LAWYER Performed at: [address] [id number] Consulting Application Engineer: Tacho Shoemaker PhD, Phone: [phone] Panchito Finnegan DO LAB - SEROLOGY ORDER EVI Performing Organization Address City/State/[facility] Co de Phone Number [facility] ACCOUNT BILL [address] [place] [address] * TRE PANEL COMPREHENSIVE (06/13/2024 2:38 PM FAMILY LAWYER) Anti-dsDNA Quantitative <1 0 - 9 IU/mL [facility] ACCOUNT BILL Comment: Negative <5 Equivocal 5 - 9 Positive >9 TECHNOLOGY CONSULTANT Antibody <0.2 0.0 - 0.9 AI [facility] [...] Sm (anti-Melo) SLE 15 - 30% --------- TECHNOLOGY CONSULTANT Mixed Connective Tissue Disease 95% (U1 nRNP, SLE 30 - 50% anti-ribonucleoprotein) Polymyositis and/or Dermatomyositis 20% --------- Scl-70 (antiDNA Scleroderma (diffuse) 20 - 35% topoisomerase) Crest 13% --------- Josefina-1 Polymyositis and/or Dermatomyositis 20 - 40% --------- Centromere B Scleroderma - Crest variant 80% Blood BLOOD SPECIMEN / Unknown 06/13/2024 2:38 PM FAMILY LAWYER 06/13/2024 Narrative [facility] ACCOUNT BILL - 06/14/2024 3:08 PM FAMILY LAWYER Performed at: [address] - [address] [id number] Consulting Application Engineer: Tacho Shoemaker PhD, Phone: [phone] Panchito Finnegan DO LAB - SEROLOGY ORDER EVI [facility] ACCOUNT BILL [address] [place] [address] * LUPUS ANTICOAGULANT PANEL W RFLX (06/13/2024 2:38 PM FAMILY LAWYER) PTT-LA 37.3 0.0 - 43.5 sec [facility] ACCOUNT BILL dRVVT 30.7 0.0 - 47.0 sec [facility] ACCOUNT BILL Interpretation Comment: [facility] ACCOUNT BILL Comment:No lupus anticoagula nt was detected. Blood BLOOD SPECIMEN / Unknown 06/13/2024 2:38 PM FAMILY LAWYER 06/13/2024 Narrative [facility] ACCOUNT BILL - 06/14/2024 7:07 PM FAMILY LAWYER Performed at: - [address] [id number] Consulting Application Engineer: Jorge Romero MD, Phone: [phone] Panchito Finnegan DO LAB - HEMATOLOGY ORD ERABLES Performing Organization Address City/[facility]/ZIP Co de Phone Number [facility] ACCOUNT BILL [address] [place] [address] * TRE BLOOD SCREEN W/REFLEX TITER (06/13/2024 2:38 PM FAMILY LAWYER) TRE Negative [facility] ACCOUNT BILL Comment: Negative <1:80 Borderline 1:80 Positive >1:80 ICAP nomenclature: AC-0 For more information about Hep-2 cell patterns use ANApatterns.org, the official website for the International Consensus on Antinuclear Antibody (TRE) Patterns (ICAP). Blood BLOOD SPECIMEN / Unknown 06/13/2024 2:38 PM FAMILY LAWYER 06/13/2024 Narrative [facility] ACCOUNT BILL - 06/15/2024 7:07 PM FAMILY LAWYER Performed at: - [address] [id number] Consulting Application Engineer: Tacho Shoemaker PhD, Phone: [phone] Panchito Finnegan DO LAB - CHEMISTRY BECKI BUTT Performing Organization Address City/[facility] Co de Phone Number [facility] ACCOUNT BILL [address] [place] [address] * (ABNORMAL) SED RATE AUTO (ESR) (06/13/2024 2:38 PM FAMILY LAWYER) Erythrocyte Sedimentation Rate Westergren 44(H) 0 - 30 mm/hr [facility] ACCOUNT BILL Blood BLOOD SPECIMEN / Unknown 06/13/2024 2:38 PM FAMILY LAWYER 06/13/2024 Narrative [facility] ACCOUNT BILL - 06/14/2024 7:09 AM FAMILY LAWYER Performed at: - [facility] [id number] [place], [place] [id number] Consulting Application Engineer: Tacho Shoemaker PhD, Phone: [phone] Panchito Finnegan DO LAB - HEMATOLOGY ORD ERABLES Performing Organization Address City/[facility]/ZIP Co de Phone Number [facility] ACCOUNT BILL [address] [place] [address] * RIBOSOMAL P PROTEIN ANTIBODY (06/13/2024 2:37 PM FAMILY LAWYER) Antiribosomal P Antibody <0.2 0.0 - 0.9 AI [facility] ACCOUNT BILL Blood BLOOD SPECIMEN / Unknown 06/13/2024 2:37 PM FAMILY LAWYER 06/13/2024 Narrative [facility] ACCOUNT BILL - 06/14/2024 1:08 PM FAMILY LAWYER Performed at: - [facility] [address] [place], [place] [id number] Consulting Application Engineer: Tacho Shoemaker PhD, Phone: [phone] Panchito Finnegan DO LAB - CHEMISTRY ORDE RABTRICE Performing Organization Address [facility]/ZIP Co de Phone Number [facility] ACCOUNT BILL [address] [place] [address] * (ABNORMAL) COMPLEMENT C3 C4 PANEL (06/13/2024 2:37 PM FAMILY LAWYER) Complement C3 178(H) 82 - 167 mg/dL [facility] ACCOUNT BILL Complement C4 41(H) 12 - 38 mg/dL [facility] ACCOUNT BILL Blood BLOOD SPECIMEN / Unknown 06/13/2024 2:37 PM FAMILY LAWYER 06/13/2024 Narrative [facility] ACCOUNT BILL - 06/14/2024 1:08 PM FAMILY LAWYER Performed at: - [facility] [place] [id number] [place], [place] [id number] Consulting Application Engineer: Tacho Shoemaker PhD, Phone: [phone] Panchito Finnegan DO LAB - CHEMISTRY ORDE RABTRICE Performing Organization Address City/[facility]/ZIP Co de Phone Number [facility] ACCOUNT BILL [address] [place] [address] from Last 3 Months Care Teams Instructor Nurse Relationship Specialty [place] [address] [place] [phone] PCP - General Internal Medicine 02/15/24 Oliverio Ldad APRN-[employer] [address] [place] [address] [place] [id number] Nurse Practitioner Nurse Practitioner Family 02/17/24
== END 2024-06-28 14:30 | disposition home or self-care (01) ==
PROVIDERS: PCP Internal Medicine Infectious Disease; Visit Provider Internal Medicine Infectious Disease
DX: Z12.2 Encounter for screening for malignant neoplasm of respiratory organs (principal); Z87.891 Personal history of nicotine dependence
CPT/HCPCS: 71271

== ENCOUNTER 2024-08-28 11:16 | Outpatient (CLI) | payer MEDICARE, MEDICAID, SELFPAY ==
[2024-08-28 12:28] LABS: Cholesterol 117 mg/dL (0-200); HDL Direct 51 mg/dL; Triglycerides 69 mg/dL (<150)
[2024-08-28 12:39] LABS: LDL Cholesterol Direct 41 mg/dL
--- OUTSIDE RECORDS SUMMARY | 2024-08-28 12:50 | XMS_ITS | Data Portability ---
Author Organization [facility] Address [address] [place] [address] Care Team Providers Care Director Sports Name Role Phone [facility] KEN MANDUJANO Assistant Sales Director Assessment No assessment recorded. Plan of Treatment Reminders Order Date Submit Date Provider Last Modified By Organization Details Last Modified Time Details Appointments None recorded. Lab PSA, total, serum or plasma 2024 025 [email or web address] [facility], [address], [place], [address], 5 10:20:30 HbA1c (hemoglobin A1c), blood 2024 025 ALLEY [facility], [address], [place], [address], 5 03:21:32 lipid panel, serum 2024 025 ALLEY [facility], [address], [place], [address], 5 03:21:32 HbA1c (hemoglobin A1c), blood 2023 024 ALLEY [facility], [address], [place], [address], 4 06:26:44 lipid panel, serum 2023 024 [facility], [address], [address], [place], [address], 4 12:35:44 TSH, ultra-sensi tive, serum 2023 024 [facility], [address], [address], [place], [address], 4 17:24:19 PSA, total, serum or plasma 2023 024 [facility], [address], [place], [address], 4 17:24:19 basic metabolic 1998 panel, serum or plasma 2023 024 ALLEY [facility], [address], [address], [place], [address], 4 15:34:51 CBC 2023 024 [facility], [address], [address], [place], [address], 4 17:24:19 HbA1c (hemoglobin A1c), blood 2023 024 [facility], [address], [address], [place], [address], 4 17:24:19 lipid panel, serum 2023 024 [facility], [address], [address], [place], [address], 4 17:24:19 albumin/cre atinine, mass ratio, urine 2023 024 [facility], [address], [address], [place], [address], 4 17:24:19 HbA1c (hemoglobin A1c), blood 2022 023 [facility], [address], [place], [address], 3 16:02:00 lipid panel, serum 2022 023 [facility], [address], [place], [address], 3 16:02:00 Referral diabetic ophthalmolo gy referral - HBA1C 5.7% 2023 024 becka [facility], [address] , [place], [address], 4 12:46:20 sleep medicine referral - KETAN 2022 023 becka Kirby MD, [address] [place], [address], 4 10:45:02 Procedures None recorded. Surgeries None recorded. Imaging LDCT, chest, for lung cancer screening 2023 025 [facility] (Imaging), [address], [place], [address], 5 17:43:27 LDCT, chest, for lung cancer screening 2022 023 [facility] ([facility]), [address] [place], [address], 3 14:51:07 Medication Orders amlodipine 10 mg tablet 2024 025 [facility], [facility] , [address], [place], [place], [id number], 5 14:56:47 losartan 25 mg tablet 2024 025 [facility], [address] [facility] , [address], [place], [place], [id number], 5 16:48:09 losartan 25 mg tablet 2023 024 [facility], [address] [place] [address] , [address], [place], [place], [id number], 4 12:30:08 OneTouch Ultra Test strips 2022 023 [facility], [address] [place] [address] , [address], [place], [place], [id number], 3 12:28:28 Patient TargetsNo targets recorded. Patient Instructions Encounter Date Encounter Id Patient Instructions Last Modified By Organization Details Last Modified Time 03/29/2023 [id number] Quitting Tobacco : Care Instructions oajao Not available 03/29/2023 12:32:03 body mass index: care instructions oajao Not available 03/29/2023 12:32:52 learning about healthy weight oajao Not available 03/29/2023 12:32:52 sleep apnea: car e instructions oajao Not available 03/29/2023 19:28:[address] Vyas i Note from the Staff Registered Nurse at [facility] Labs Sleep medicine LDCT Stop smoking Follow up in 3 months and PRN oajao Not available 03/29/2023 12:32:27 05/25/2023 [id number] type 2 diabetes: care instructions oajao Not available 05/25/2023 12:25:50 high blood pressure: care instructions oajao Not available 05/25/2023 12:25:50 learning about h igh blood pressure oajao Not available 05/25/2023 12:25:50 Schedule a follo w up appointment with your orthopedic surgeon,, Dr Ernst Start Losartan Follow up in 3-4 weeks oajao Not available 05/25/2023 12:31:00 07/15/2023 [id number] body mass index: care instructions oajao Not [...] donate plasma but the decision is the biomedical repair technician's. oajao Not available 07/15/2023 14:20:47 02/21/2024 [id number] hip arthritis: c are instructions oajao Not available 02/21/2024 12:48:21 Labs LDCT in 03/2024 Sleep medicine as referred Follow up in 5 months and PRN oajao Not available 02/21/2024 12:50:32 08/02/2024 [id number] A healthy lifestyle: care instructions oajao Not available 08/02/2024 14:47:25 body mass index: care instructions oajao Not available 08/02/2024 14:47:08 learning about healthy weight oajao Not available 08/02/2024 14:47:08 type 2 diabetes: care instructions oajao Not available 08/02/2024 14:55:08 Labs next month Stop smoking Follow up in 6 months and PRN oajao Not available 08/02/2024 15:01:16 Reason for Referral Sleep Medicine Referral for Obstructive sleep apnea syndrome KETAN Referring Physician: Timbo Gregg, Internal Medicine, Encounter Date: 03/29/2023 Diabetic Ophthalmology Refer ral for Type 2 diabetes mellitus without complication HBA1C 5.7% HBA1C 5.7% Referring Physician: Timbo Gregg, Internal Medicine, Encounter Date: 05/25/2023 Results Created Date Observation Date Name Description Value Unit Range Abnormal Flag Note LastModifiedBy Organization Detail LastModifiedTime 06/13/1906/15/2024 Nucle ar Ab [Pres ence] in Serum by Immun oassa y TRE Negati ve TRE Negat bianca [facility] ACCOU NT BILL Not Available Not Available 07/12/2024 08:57:57 06/13/19 25 06/15/2024 Nucle ar Ab [Pres ence] in Serum by Immun oassa y Unknown Analyte Perfor med at: 01 - [facility] [address] [place] [address] [id number] Lab Direct or: Lalita richmond PhD, Not Available Not Available 08:57:57 06/13/19 25 06/14/2024 Eryth rocyt e sedim entat ion rate by Tan perez erythrocyte sedimentatio n rate westergren 44 text: 0 - 30 mm/HR high Eryth rocyt e Sedim entat ion Rate Tan sanchez 44 (H) 0 - 30 mm/hr [facility] ACCOU NT BILL Not Available Not Available 07/12/2024 08:57:57 06/13/19 25 06/14/2024 Eryth rocyt e sedim entat ion rate by Tan perez Unknown Analyte Perfor med at: 01 - [facility] [place] [address] [place], [place] [phone] Lab Direct or: Lalita richmond PhD, Not Available Not Available 08:57:57 06/13/19 25 06/14/2024 Eryth rocyt e sedim entat ion rate by Tan perez interpretati on and review of laboratory results Abnorm al Not Available Not Available 08:57:57 06/13/19 25 06/14/2024 Ribos omal P IgG Ab [Unit s/vol ume] in Serum antiribosoma l P antibody <0.2 text: 0.0 - 0.9 ai Antir iboso mal P Antib flaco <0.2 0.0 - 0.9 AI [facility] ACCOU NT BILL Not Available Not Available 07/12/2024 08:57:57 06/13/19 25 06/14/2024 Ribos omal P IgG Ab [Unit s/vol ume] in Serum Unknown Analyte Perfor med at: 01 - [facility] [address] [id number] [place], [place] [id number]87 Lab Direct or: Lalita richmond PhD, Not Available Not Available 08:57:57 06/13/19 25 06/14/2024 Compl ement C3 and C4 panel [Mass /volu me] - Serum or Plasm a complement C3 [mass/volume ] in serum or plasma 178 mg/dL low: 82mg/d Lhigh: 167mg/ dL high Compl ement C3 178 (H) 82 - 167 mg/dL [facility] ACCOU NT BILL Not Available Not Available 07/12/2024 08:57:57 06/13/19 25 06/14/2024 Compl ement C3 and C4 panel [Mass /volu me] - Serum or Plasm a complement C4 [mass/volume ] in serum or plasma 41 mg/dL low: 12mg/d Lhigh: 38mg/d L high Compl ement C4 41 (H) 12 - 38 mg/dL [facility] ACCOU NT BILL Not Available Not Available 07/12/2024 08:57:57 06/13/19 25 06/14/2024 Compl ement C3 and C4 panel [Mass /volu me] - Serum or Plasm a Unknown Analyte Perfor med at: 01 - [facility] [place] [id number] Lab Direct or: Lalita richmond PhD, Not Available Not Available 08:57:57 06/13/19 25 06/14/2024 Compl ement C3 and C4 panel [Mass /volu me] - Serum or Plasm a interpretati on and review of laboratory results Abnorm al Not Available Not Available 08:57:57 04/21/20 23 04/21/2023 LDCT, chest , for lung cance r scree benitez No observ ation record ed. [facility] [address] [place], [address], 05/25/2023 12:17:34 11/09/19 24 02/03/2022 XR, hip + pelvi s, bilat eral No observ ation record ed. [address], [address], 02/21/2024 12:36:42 06/28/19 25 06/28/2024 LDCT, chest , for lung cance r scree benitez No observ ation record ed. [address], [address], 08/02/2024 14:46:17 Result Notes None recorded. Problems Name Problem SNOMED Code Status Onset Date Resolution Date Notes Provider Name and Address Organization Details Recorded Time History of pneumonia 907900216 Active 2022 Timbo Gregg MD Attn: Corey gerard,[address] [facility], [place], [address], [place] - [facility] 3 14:13:01 Type 2 diabetes mellitus without complicatio n 359562684 Active 2022 Timbo Gregg MD Attn: Corey gerard,[address] [facility], [place], [address], [place] [facility] 5 10:18:59 SARS-CoV-2 vaccination declined 1534919860 Active 2022 Timbo Gregg MD Attn: Corey gee,[address] [facility], [place], [address], [place] [facility] 3 14:32:24 Vaccination declined 4487594790 Active 2022 Timbo Gregg MD Attn: Corey gee,[address] [facility], [place], [address], [place] [facility] 3 14:32:38 Smoker 61034473 Active 2022 Timbo Gregg MD Attn: Corey gee,[address] [facility], [place], [address], [place] [facility] 3 14:32:54 Schizophren ia 85252450 Active 2022 Timbo Gregg MD Attn: Corey gee,[address] [facility], [place], [address], [place] [facility] 3 18:56:24 Obstructive sleep apnea syndrome 73873313 Active 2022 Timbo Gregg MD Attn: Corey gee,[address] [facility], [place], [address], [place] [facility] 3 18:56:26 Family history of malignant tumor of hypopharynx 5778517488754 4106 Active 2022 Timbo Gregg MD Attn: Corey gerard,[address] [facility], [place], [address], [place] - [facility] 3 15:49:14 Family history of malignant neoplasm of lung 056264613 Active 2022 Timbo Gregg MD Attn: Corey gerard,[address] [facility], [place], [address], [place] [facility] 3 15:49:15 Benign essential hypertensio n 8157216 Active 2023 Timbo Gregg MD Attn: Corey greard,[address] [facility], [place], [address], [place] [facility] 5 10:19:06 Influenza vaccination declined 931022809 Active 2023 Timbo Gregg MD Attn: Corey gee,[address] [facility], [place], [address], [place] [facility] 4 13:00:18 Osteoarthri tis of hip 050809307 Active 2023 Timbo Gregg MD Attn: Loriagustina gee,[address] [facility], [place], [address], [place] - [facility] 4 13:00:20 Problem Notes None recorded. Procedures Surgical History Date Name Laterality Status Provider Name and Address Organization Details Recorded Time 08/03/19 25 Diabetic Foot Exam completed Timbo Gregg MD Attn: Accounting,[address] [facility], [place], [address], [place] [facility] 08/02/2024 14:59:25 07/15/19 24 Diabetic Foot Exam completed Timbo Gregg MD Attn: Accounting,[address] [facility], [place], [address], [place] [facility] 07/15/2023 13:01:36 05/25/19 24 Diabetic Foot Exam completed Timbo Gregg MD Attn: Accounting,[address], [place], [address], [facility] 05/25/2023 13:52:53 03/29/20 23 Diabetic Foot Exam completed Timbo Gregg MD Attn: Accounting,[address], [place], [address], [facility] 03/29/2023 19:25:46 07/09/19 22 colonoscopy completed Timbo Gregg MD Attn: Accounting,[address], [place], [address], [facility] 12/07/2022 13:25:32 incision completed Timbo Gregg MD Attn: Accounting,[address] [facility], [place], [address], [facility] 10/06/2022 14:09:42 anterior tracheostomy completed Timbo Gregg MD Attn: Accounting,[address] [facility], [place], [address], [facility] 10/06/2022 14:10:11 procedure on lymph node completed Timbo Gregg MD Attn: Accounting,[address] [facility], [place], [address], [facility] 11/24/2022 15:41:10 Imaging Results Imaging Date Name Status LastModified by [facility] Details LastModified Time 04/21/2023 LDCT, chest, for lung cancer screening completed [facility] [address] [place], [address], 05/25/2023 12:17:34 02/03/2022 XR, hip + pelvis, bilateral completed [address] [place] [address], [address], 02/21/2024 12:36:42 06/28/2024 LDCT, chest, for lung cancer screening completed [address], [address], 08/02/2024 14:46:17 Procedure Notes None recorded. Medical Equipment None Reported. Allergies Allergen ID Allergen Name Allergen Category Reaction Reaction Severity Criticality Documentation Date Start Date Code Code System Note Provider Name and Address Organization Details Recorded Time 075241 lisinopri l medicatio n anaphylax is Not available high 10/06/2022 02714 RxNorm Not Available Not Available Not Available 817869 Product containin g angiotens in-conver ting enzyme inhibitor (product) medicatio n anaphylax is severe Not available 10/06/2022 92545 009 SNOMED Not Available Not Available Not [...] t Available amlodipin e 10 mg tablet Take 1 tablet every day by oral route as directed for 90 days, for HTN. 2024 active Not Available Not Available Not Avai lable trazodone 150 mg tablet active Not Available Not Available Not Available haloperid ol 10 mg tablet active Not Available Not Available Not Available losartan 25 mg tablet Take 1 tablet every day by oral route as directed for 90 days, for HTN. 2024 active Not Available Not Available Not Avai lable benztropi ne 1 mg tablet active Not [...] Updated DateTime 3 175.26 cm 42.9 kg/m2 547230. 66 g 95 % 95 % 84 /min 18 /min 124 mm[Hg] 80 mm[Hg] Sweetie Blake [place] [facility] 3 12:05:05 Date Recorded Body height Body mass index (BMI) Body weight Oxygen saturation Oxygen saturation in Arterial blood by Pulse oximetry Heart rate Body temperature Systolic blood pressure Diastolic blood pressure Provider Name and Address Organization Details Last Updated DateTime 4 175.26 cm 43.9 kg/m2 802494. 93 g 97 % 97 % 72 /min 97.8 [degF] 130 mm[Hg] 90 mm[Hg] Sweetie Blake MA [facility] 4 11:52:46 Date Recorded Body height Body mass index (BMI) Body weight Oxygen saturation Oxygen saturation in Arterial blood by Pulse oximetry Heart rate Respiratory rate Systolic blood pressure Diastolic blood pressure Provider Name and Address Organization Details Last Updated DateTime 4 175.26 cm 43.9 kg/m2 617290. 93 g 95 % 95 % 74 /min 20 /min 126 mm[Hg] 80 mm[Hg] Sweetie Blake MA [facility] 4 12:38:14 Date Recorded Body height Body mass index (BMI) Body weight Heart rate Oxygen saturation Oxygen saturation in Arterial blood by Pulse oximetry Respiratory rate Systolic blood pressure Diastolic blood pressure Provider Name and Address Organization Details Last Updated DateTime 4 175.26 cm 44.7 kg/m2 317924. 41 g 72 /min 95 % 95 % 18 /min 124 mm[Hg] 84 mm[Hg] Sweetie Blake [place] [facility] 4 12:34:36 Date Recorded Body height Body mass index (BMI) Body weight Body temperature Heart rate Oxygen saturation Oxygen saturation in Arterial blood by Pulse oximetry Systolic blood pressure Diastolic blood pressure Provider Name and Address Organization Details Last Updated DateTime 175.26 cm 42.2 kg/m2 351080. 42 g 98.2 [degF] 80 /min 93 % 93 % 116 mm[Hg] 80 mm[Hg] Sweetie Blake [place] [facility] 14:40:36 Social History Question Answer Notes LastModified by Organizat ion Details LastModified Time Tobacco Smoking Status Current Some Day Smoker Sweetie Blake MA null, [facility] 07/15/2023 12:36:29 What Is Your Level Of Alcohol Consumption? Occasional Information not available 10/06/2022 How Many Years Have You Consumed Alcohol? 15 Information not available 03/29/2023 What Is Your Level Of Caffeine Consumption? Moderate Information not available 10/06/2022 What Type Of Diet Are You Following? REGULAR Information not available 10/06/2022 What Was The Date Of Your Most Recent Tobacco Screening? 08/02/2024 Information not available 08/02/2024 What Is Your Current Pack Years? 30ormorepackye [...] What Date Was Tobacco Cessation Counseling Provided? 08/02/2024 Information not available 08/02/2024 How Many Years Have You Smoked Tobacco? 35 Information not available 10/06/2022 Do You Or Have You Ever Used Any Other Forms Of Tobacco Or Nicotine? No Information not available 03/29/2023 Sex: Unknown Functional Status None recorded. Mental Status None recorded. Family History Nothing Reported. Medical History Condition Response Coronary Artery Disease N Other Y Atrial Fibrillation N High Blood Pressure Y Depression N COPD N Blood Clots N Anxiety Disorder Y Muscle, Joint, or Bone Problems N Acid Reflux (GERD) N Cancer N Stroke N High Cholesterol Y Liver Disease N Headaches N Kidney or Bladder Problems N Thyroid Problems N GI Problems N Skin Problems N Anemia N Heart Attack ([place]) N Diabetes Y Seizures/Epilepsy N Asthma N Allergies N Hepatitis N Heart Failure N Osteoporosis N Past Encounters Encounter ID Performer Location Encounter Start Date Encounter Closed Date Diagnosis/Indication Diagnosis SNOMED-CT Code Diagnosis ICD10 Code Diagnosis Note [id number] MD Serena Sterling (Adult Med) [address] [place] [phone] 10/06/2022 13:08:09 10/08/2022 12:20:16 General examination of patient 220962447 Z00.01 Type 2 esha betes mellitus without complication 819323014 E11.9 SARS-CoV-2 vaccination declined 8206723636 Z28.21 History of pneumonia 161 924909 Z87.01 Schizophrenia 43798665 F 20.9 Obstructiv e sleep apnea syndrome 17697285 G47.33 Screening for malignant neoplasm of prostate 575879872 Z12.5 Immunization advised 310 310039 Z71.9 Vaccination declined 175 5627925 Z28.21 Smoker 20299282 F17.200 Chest pain 83186454 R07. 9 [id number] MD Serena Sterling (Adult Med) [address] [place] [address] 11/24/2022 14:58:11 11/25/2022 12:17:31 Type 2 diabetes mellitus without complication 607495305 E11.9 HBA1C 6.4%Restar t Metformin ER 500 mg Family his tory of malignant neoplasm of lung 780678905 Z80.1 Family his tory of malignant tumor of hypopharynx 5517655240 4919563 Z80.8 Impaired dentition 95570 4008 K03.9 Screening for cancer 158 71329 Z19.1 CXR 2021 (The report is pending)Co lonoscopy 2021 (The report is pending)PS A 09/23/2022 nl [id number] MD Serena Sterling (Adult Med) [address] [place] [address] 03/29/2023 11:31:48 03/30/2023 12:52:06 Type 2 diabetes mellitus without complication 116485682 E11.9 Labs OV 11/24/2022 HBA1C 6.4%Restar t Metformin ER 500 mg Screening for cancer 158 55503 Z19.1 Colonoscop y 07/09/2021, Q 5 years OV 11/24/2022 CXR 2021 (The report is pending)Co lonoscopy 2021 (The report is pending)PS A 09/23/2022 nl Nicotine dependence 5629 4008 Z87.891 Body mass index 40+ - severely obese 659004138 Z68.41 Obstructiv e sleep apnea syndrome 10380560 G47.33 [id number] MD Serena Sterling (Adult Med) [address] [place] [address] 05/25/2023 11:43:28 05/26/2023 09:34:07 Benign essential hypertension 2778572 I10 Uncontroll edAdd Losartan 25 mg po daily, side effects were discussedC ontinue Amlodipine and Metoprolol Type 2 esha betes mellitus without complication 895865490 E11.9 Labs OV 11/24/2022 HBA1C 6.4%Restar t Metformin ER 500 mg [id number] [facility] [address] [place] [address] 07/15/2023 12:00:31 07/18/2023 16:43:34 Benign essential hypertension 1849034 I10 Stable OV 05/25/2023Un controlled Add Losartan 25 mg po daily, side effects were discussedC ontinue Amlodipine and Metoprolol Type 2 esha betes mellitus without complication 840206549 E11.9 Labs OV 05/25/2023La bs OV 11/24/2022 HBA1C 6.4%Restar t Metformin ER 500 mg Medication monitoring 39 2459614 Z51.81 Screening for malignant neoplasm of prostate 201292353 Z12.5 Body mass index 40+ - severely obese 749620849 Z68.41 [id number] MD Serena Sterling (Adult Med) [address] [place] [address] 02/21/2024 12:22:45 02/24/2024 08:11:56 Benign essential hypertension 9131135 I10 StableOV 07/15/2023S table OV 05/25/2023Un controlled Add Losartan 25 mg po daily, side effects were discussedC ontinue Amlodipine and Metoprolol Type 2 esha betes mellitus without complication 055724722 E11.9 He has discontinu ed his Metformin on his own. I really don't think I need it, my sugar is okay OV 07/15/2023L abs OV 05/25/2023La bs OV 11/24/2022 HBA1C 6.4%Restar t Metformin ER 500 mg Influenza vaccination declined 311039367 Z28.21 Osteoarthritis of hip 23 5923726 M16.9 History of nicotine dependence 7941404041 81296528 Z87.891 [place] Tobacco QuitlineHe has failed the Nicotine patch [id number] [facility] [address] [place] [phone] 08/02/2024 14:33:33 08/03/2024 09:26:50 Body mass index 40+ - severely obese 549172886 Z68.41 Obesity 809711490 E66.9 Type 2 esha betes mellitus without complication 822908410 E11.9 Stable, HBA1C 6.3% on 03/30/2025 OV 03/01/2024 He has discontinu ed his Metformin on his own. I really don't think I need it, my sugar is okay OV 07/15/2023L abs OV 05/25/2023La bs OV 11/24/2022 HBA1C 6.4%Restar t Metformin ER 500 mg Benign ess ential hypertension 2347071 I10 StableOV 07/15/2023S table OV 05/25/2023Un controlled Add Losartan 25 mg po daily, side effects were discussedC ontinue Amlodipine and Metoprolol Screening for malignant neoplasm of prostate 838199923 Z12.5 Health Concerns Section Related Observation LastModified by Organization Detai ls LastModified Time None Recorded Concern Status LastModified by Organization Details LastModified Time None Recorded Advance Directives Directive None Recorded Payers Encounter Date Sequence Insurance Name Policy Number Policy Whitaker Covered Member ID Whitaker Member ID Guarantor Name 03/29/2023 2 [place]ARE OR MEDICARE REPLACEMENT PRIMARY) Arsh Montanez [id number] Arsh Montanez 03/29/2023 1 [facility] (MEDICARE REPLACEMENT/AD VANTAGE - PPO) [id number] Arsh Montanez [id number] Arsh Montanez 05/25/2023 2 [place]IC[place] REPLACEMENT PRIMARY) Arsh Adrian Tarik [id number] Arsh Montanez 05/25/2023 1 [facility] (MEDICARE REPLACEMENT/AD VANTAGE - PPO) [id number] Arsh Perez Tarik [id number] Arsh Montanez 07/15/2023 2 [place] MEDICARE REPLACEMENT PRIMARY) Arsh Montanez [id number] Arsh Montanez 07/15/2023 1 [facility] (MEDICARE REPLACEMENT/AD VANTAGE - PPO) [id number] Arsh Perez Tarik [id number] Arsh Montanez 02/21/2024 2 [place] MEDICARE REPLACEMENT PRIMARY) Arsh Perez Tarik [id number] Arsh Montanez 02/21/2024 1 [facility] (MEDICARE REPLACEMENT/AD VANTAGE - PPO) [id number] Arsh Perez Tarik [id number] Arsh Montanez 08/02/2024 2 [place] WHEN [place] OR MEDICARE REPLACEMENT PRIMARY) Arsh Perez Tarik [id number] Arsh Montanez 08/02/2024 1 [facility] (MEDICARE REPLACEMENT/AD VANTAGE - PPO) [id number] Arsh Perez Tarik [id number] Arsh Montanez Notes Date Note Type Note Provider Name and Address Organization Details Recorded Time 03/29/2023 text/html Diabetes F/URepo rted bypatient.Labs:last A1C [...] HIV but it came back negative Mr Montanez returns, he claims that his PCP mentioned that he had cancer and HIV and later on said that he did not. He has KETAN but never followed up for his repeat tests or CPAP. He has been compliant with his medications and apparently had his eye exam Timbo Gregg MD Attn: Accounting,[address] [facility], [place], [address], [facility] 03/29/2023 19:30:14 05/25/2023 text/html AnkleReported bypatient.Location:l.v. stabler [...] caused the other areas to deteriorate? Mr Tarik returns, he is applying for disability based on his chronic bilateral ankle pain. There was an injury to the left ankle while he was serving and the right ankle was sprained. He had seen an orthopedic surgeon at [facility] for this issue and recently requested that I provide a letter, my suggestion was that his records be forwarded. Timbo Gregg MD Attn: [facility],[address] [facility], [place], [address], [facility] 05/25/2023 13:54:31 07/15/2023 text/html Hypertension F/UReported bypatient.Associated [...] plasma drawn Timbo Gregg MD Attn: Accounting,[address] [facility], [place], [address], [facility] 07/15/2023 14:21:10 02/21/2024 text/html Diabetes F/URepo rted [...] and he has an appointment with the cvor nurse. Timbo Gregg MD Attn: Accounting,[address] [place], [address], [facility] 02/21/2024 13:01:21 08/02/2024 text/html Diabetes F/URepo rted bypatient.Labs:last A1C result: 6.3% Context:taking aspirin daily; not missing doses of medications; no side effects from medications Associated Symptoms:no weight gain; no dizziness; no sweats; no headaches; no confusion; no increased thirst; no increased appetite; no increased urination; no blurred vision; no numbness of feet; no calluses on feet;weight loss (16 lbs) The results of everything Mr Montanez is doing well, he has changed his diet but still smokes about the same. 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 Timbo Gregg MD Attn: Accounting,[address] [place], [address], [facility] 08/02/2024 16:48:12
--- OUTSIDE RECORDS SUMMARY | 2024-08-28 12:50 | XMS_ITS | Clinical Summary ---
Author Organization [facility] Address [address] [place] [address] Care Team Providers Care Hot Stone Setter Name Role Phone Timbo Gregg MD Primary Care Provider Oliverio Ladd APRN-POWDER COMPOUNDER Unavailable [phone] Source Comments [facility],non-owned Affiliates and Associated Physician Practices is amultiple site organization consisting of ambulatory clinics and hospital sitesin [place], [place], [place] and [place]. This disclosure is being madepursuant to the Care Everywhere program and may not contain all information available regarding this patient. Last updated 18.[facility] Allergies Active Allergy Reactions Criticality Noted [...] Active Multiple Vitamin (Multi-Vitamin Daily) TABS Active Active Problems Problem Noted Date Diagnosed Date Generalized osteoarthritis of multiple sites Overview (07/11/2024): Suspect that ankle degenerative arthritis (osteoarthritis) connected manifestation to a more widespread form of generalized osteoarthritis (spine/hips/knees). 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 Other intermediate (current) drug therapy 10/21/2022 Microalbuminuria 08/26/2021 10/21/2022 Diastolic dysfunction 11/26/2020 10/21/2022 B12 deficiency 09/25/2020 10/21/2022 Chronic schizophrenia 09/25/2020 10/21/2022 Overview [...] 01/07/2015 History of tracheostomy 01/07/2015 10/22/19 23 Resolved Problems Problem Noted Date Diagnosed Date Resolved Date Exposure to SARS-associated coronavirus 08/11/2021 0 10/21/2022 07/11/2024 Chest pain, atypical 09/25/2020 10/21/2022 025 Encounters Date Type Department Care Team Description 08/01/2024 Telephone [facility] [address] [place] [address], [address] [place] [address] Panchito Finnegan DO Encounter Opened In Error 07/13/2024 Telephone [facility] - Endocrinology [address] [place] [address], [address] [place] [address] Panchito Finnegan DO Forms/questionnaires 07/11/2024 1:40 PM SECURITY TESTER Office Visit [facility] [address] [place] [address], [address] [place] [address] Panchito Finnegan DO Generalized osteoarthritis of multiple sites (Primary Dx); Spondylosis (degenerative spinal arthritis) of lumbar region without myelopathy or radiculopathy; Spondylolisthesis of lumbar region grade 1 L3-4 level; Primary osteoarthritis of both hips; Bilateral primary osteoarthritis of knee; Primary osteoarthritis of ankles, bilateral 06/13/2024 2:55 PM SECURITY TESTER - 06/13/2024 11:59 PM SECURITY TESTER Hospital Encounter [facility] [address] [place] [address] [address] [place] [address] Timbo Gregg MD Discharge Disposition: Home or Self Care 06/13/2024 1:20 PM SECURITY TESTER Office Visit [facility] [address] [place] [address], [address] [place] [address] Panchito Finnegan DO Polyarthralgia (Primary Dx); Positive [...] Date Recorded Patient Health Questionnaire-2 Score 2 07/11/2024 Sex and Gender Information Value Date Recorded Sex Assigned at Not on file Gender Identity Not on file Sexual Orientation Not on file Last Filed Vital Signs Vital Sign Reading Time Taken Comments Blood Pressure 140/80 07/11/2024 1:40 PM SECURITY TESTER Pulse 85 07/11/2024 1:40 PM SECURITY TESTER Temperature 36.1 C (97 F) 07/11/2024 1:40 PM SECURITY TESTER Respiratory Rate 16 07/11/2024 1:40 PM SECURITY TESTER Oxygen Saturation 95% 07/11/2024 1:40 PM SECURITY TESTER Inhaled Oxygen Concentration - - Weight 129.3 kg (285 lb) 06/13/2024 1:11 PM SECURITY TESTER Height 175.3 cm (5' 9 ) 06/13/2024 1:11 PM SECURITY TESTER Body Mass Index 42.09 06/13/2024 1:11 PM SECURITY TESTER Plan of Treatment Health Maintenance Due Date Last Done Comments COLOGUARD (AGES 45-75) - COL ON CA SCREENING 1971 COLON MONITORING 1971 COLONOSCOPY - COLON CA SCREENING 1971 CT COLONOGRAPHY - COLON CA SCREENING 1971 Colorectal Cancer Screening 1971 FIT - COLON CA SCREENING 1971 FLEX SIG - COLON CA SCREENING 1971 MENINGOCOCCAL GROUPS A/C/Y/W VACCINE (1 - Risk 2-dose series) 1973 MENINGOCOCCAL (Group B) VACCINE SHARED DECISION-MAKING (1 of 5 - Increased Risk) 1981 [...] VACCINE (1 - 2023-2 5 season) 2024 DIABETES - URINE PROTEIN SCREENING 05/23/2024 MEDICARE AWV CALENDAR YEAR 2024 INFLUENZA VACCINE (Season Ended) 2025 06/21/2014, 07/20/2012, 06/03/2011 HEPATITIS B VACCINE Completed 08/20/2013, 10/09/2010, 05/25/2010 HIB VACCINE Aged Out No longer eligi ble based on patient's age to complete this topic HPV VACCINE Aged Out No longer eligi ble based on patient's age to complete this topic Procedures Procedure Name Priority Date/Time Associated Diagnosis Comments XR PELVIS W BILAT HIP 1VW Routine 06/13/2024 3:34 PM SECURITY TESTER Chronic left hip pain XR KNEE BILAT 2VW OR LESS Routine 06/13/2024 3:34 PM SECURITY TESTER Chronic pain of left knee XR LUMBAR SPINE 4VW OR MORE Routine 06/13/2024 3:34 PM SECURITY TESTER Chronic midline low back pain without sciatica ERYTHROCYTE SEDIMENTATION RATE Routine 06/13/2024 2:38 PM SECURITY TESTER Polyarthralgia LUPUS ANTICOAGULANT PANEL W RFLX Routine 06/13/2024 2:38 PM SECURITY TESTER Positive TRE (antinuclear antibody) CARDIOLIPIN ANTIBODY IGA/IGG/IGM PANEL Routine 06/13/2024 2:38 PM SECURITY TESTER Positive TRE (antinuclear antibody) TRE PANEL COMPREHENSIVE Routine 06/13/2024 2:38 PM SECURITY TESTER Positive TRE (antinuclear antibody) TRE BLOOD SCREEN W/REFLEX TITER Routine 06/13/2024 2:38 PM SECURITY TESTER Positive TRE (antinuclear antibody) RIBOSOMAL P PROTEIN ANTIBODY Routine 06/13/2024 2:37 PM SECURITY TESTER Positive TRE (antinuclear antibody) COMPLEMENT C3 C4 PANEL Routine 2:37 PM SECURITY TESTER Positive TRE (antinuclear antibody) from Last 3 Months Results * XR Pelvis W Bilat Hip 1Vw (06/13/2024 3:34 PM SECURITY TESTER) Anatomical Region Laterality Modality Pelvis Radiographic Marissa ging 06/13/2024 5:09 PM SECURITY TESTER Impressions 06/13/2024 5:12 PM SECURITY TESTER IMPRESSION: 1. No significant hip findings. 2. 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 No acute findings. 2. Mild bilateral knee primary osteoarthritis > Interpreting Provider: Sarah Mchugh MD on 06/13/2024 5:13 PM Narrative 06/13/2024 5:13 PM SECURITY TESTER PROCEDURE: XR KNEE BILAT 2VW OR LESS [...] Spine 4Vw or More (06/13/2024 3:34 PM SECURITY TESTER) Anatomical Region Laterality Modality Spine Radiographic Marissa ging 06/13/2024 5:08 PM SECURITY TESTER Impressions 06/13/2024 5:09 PM SECURITY TESTER IMPRESSION: 1. L3-L4 grade 1-2 degenerative subluxation > Interpreting Provider: Sarah Mchugh MD on 06/13/2024 5:09 PM Narrative 06/13/2024 5:09 PM SECURITY TESTER PROCEDURE: XR LUMBAR SPINE 4VW OR MORE [...] CARDIOLIPIN ANTIBODY IGA/IGG/IGM PANEL (06/13/2024 2:38 PM SECURITY TESTER) Cardiolipin Antibody IgG <9 0 - 14 [...] BLOOD SPECIMEN / Unknown 06/13/2024 2:38 PM SECURITY TESTER 06/13/2024 Narrative [facility] ACCOUNT BILL - 06/14/2024 5:07 PM SECURITY TESTER Performed at: [facility] [id number] Analytics Senior Manager: Tacho Shoemaker PhD, Phone: [phone] Panchito Finnegan DO LAB - SEROLOGY ORDER EVI [facility] ACCOUNT BILL [address] [place] [address] * TRE PANEL COMPREHENSIVE (06/13/2024 2:38 PM SECURITY TESTER) Pathologist [facility] Anti-dsDNA Quantitative <1 0 - 9 IU/mL [facility] ACCOUNT BILL Comment: Negative <5 Equivocal 5 - 9 Positive >9 TALENT ACQUISITION ASSISTANT Antibody <0.2 0.0 - 0.9 AI [facility] [...] Sm (anti-Melo) SLE 15 - 30% --------- TALENT ACQUISITION ASSISTANT Mixed Connective Tissue Disease 95% (U1 nRNP, SLE 30 - 50% anti-ribonucleoprotein) Polymyositis and/or Dermatomyositis 20% --------- Scl-70 (antiDNA Scleroderma (diffuse) 20 - 35% topoisomerase) Crest 13% --------- Josefina-1 Polymyositis and/or Dermatomyositis 20 - 40% --------- Centromere B Scleroderma - Crest variant 80% Blood BLOOD SPECIMEN / Unknown 06/13/2024 2:38 PM SECURITY TESTER 06/13/2024 Narrative [facility] ACCOUNT BILL - 06/14/2024 3:08 PM SECURITY TESTER Performed at: [address] [place] [id number] Analytics Senior Manager: Tacho Shoemaker PhD, Phone: [phone] Panchito Finnegan DO LAB - SEROLOGY ORDER EVI [facility] ACCOUNT RICHARD [address] [place] [address] * LUPUS ANTICOAGULANT PANEL W RFLX (06/13/2024 2:38 PM SECURITY TESTER) PTT-LA 37.3 0.0 - 43.5 sec [facility] ACCOUNT BILL dRVVT 30.7 0.0 - 47.0 sec [facility] ACCOUNT BILL Interpretation Comment: [facility] ACCOUNT BILL Comment:No lupus anticoagula nt was detected. Blood BLOOD SPECIMEN / Unknown 06/13/2024 2:38 PM SECURITY TESTER 06/13/2024 Narrative [facility] ACCOUNT BILL - 06/14/2024 7:07 PM SECURITY TESTER Performed at: - [facility] [address] [id number] Analytics Senior Manager: Jorge Romero MD, Phone: [phone] Panchito Finnegan DO LAB - HEMATOLOGY ORD ERABLES [facility] ACCOUNT BILL [address] [place] [address] * TRE BLOOD SCREEN W/REFLEX TITER (06/13/2024 2:38 PM SECURITY TESTER) TRE Negative [facility] ACCOUNT BILL Comment: Negative <1:80 Borderline 1:80 Positive >1:80 ICAP nomenclature: AC-0 For more information about Hep-2 cell patterns use ANApatterns.org, the official website for the International Consensus on Antinuclear Antibody (TRE) Patterns (ICAP). Blood BLOOD SPECIMEN / Unknown 06/13/2024 2:38 PM SECURITY TESTER 06/13/2024 Narrative [facility] ACCOUNT BILL - 06/15/2024 7:07 PM SECURITY TESTER Performed at: - [facility] [id number] Analytics Senior Manager: Tacho Shoemaker PhD, Phone: [phone] Panchito Finnegan DO LAB - CHEMISTRY BECKI BUTT [facility] ACCOUNT BILL [address] [place] [address] * (ABNORMAL) SED RATE AUTO (ESR) (06/13/2024 2:38 PM SECURITY TESTER) Erythrocyte Sedimentation Rate Westergren 44(H) 0 - 30 mm/hr [facility] ACCOUNT BILL Blood BLOOD SPECIMEN / Unknown 06/13/2024 2:38 PM SECURITY TESTER 06/13/2024 Narrative [facility] ACCOUNT BILL - 06/14/2024 7:09 AM SECURITY TESTER Performed at: [facility] [id number] Analytics Senior Manager: Tacho Shoemaker PhD, Phone: [phone] Panchito Finnegan DO LAB - HEMATOLOGY ORD ERABLES Performing Organization Address [facility] Co de Phone Number [facility] ACCOUNT BILL [address] [place] [address] * RIBOSOMAL P PROTEIN ANTIBODY (06/13/2024 2:37 PM SECURITY TESTER) Antiribosomal P Antibody <0.2 0.0 - 0.9 AI [facility] ACCOUNT BILL Blood BLOOD SPECIMEN / Unknown 06/13/2024 2:37 PM SECURITY TESTER 06/13/2024 Narrative [facility] ACCOUNT BILL - 06/14/2024 1:08 PM SECURITY TESTER Performed at: [address] [id number] Analytics Senior Manager: Tacho Shoemaker PhD, Phone: [phone] Panchito Finnegan DO LAB - CHEMISTRY BECKI BUTT Performing Organization Address [facility] de Phone Number [facility] ACCOUNT BILL [address] [place] [address] * (ABNORMAL) COMPLEMENT C3 C4 PANEL (06/13/2024 2:37 PM SECURITY TESTER) Complement C3 178(H) 82 - 167 mg/dL [facility] ACCOUNT BILL Complement C4 41(H) 12 - 38 mg/dL [facility] ACCOUNT BILL Blood BLOOD SPECIMEN / Unknown 06/13/2024 2:37 PM SECURITY TESTER 06/13/2024 Narrative [facility] ACCOUNT BILL - 06/14/2024 1:08 PM SECURITY TESTER Performed at: [address] [place] [id number] Analytics Senior Manager: Tacho Shoemaker PhD, Phone: [phone] Panchito Finnegan DO LAB - CHEMISTRY BECKI BUTT [facility] ACCOUNT BILL [address] [place] [address] from Last 3 Months Care Teams Hot Stone Setter Relationship Specialty Start Date End Date Timbo Gregg MD [address] [place] [phone] PCP - General Internal Medicine 02/15/24 Oliverio Ladd APRN-POWDER COMPOUNDER [address] [place] [address] [place] [id number] Nurse Practitioner Nurse Practitioner Family 02/17/24
--- OUTSIDE RECORDS SUMMARY | 2024-08-28 12:50 | XMS_ITS | CONTINUITY OF CARE DOCUMENT ---
Author Name andriy humbertopeter Address Unknown Organization [facility] Address [address] [place] [address] Phone [phone] Care Team Providers Care Personalized Living Assistant Name Role Phone Dariana DIALLO, Gabe Unavailable [phone] BRITTNEY SANTANA MD Unavailable BRITTNEY SANTANA MD [...] In-person encounter Office Visit Gabe Westbrook MD [facility] - In-person encounter Office Visit Gabe Westbrook MD [facility] - In-person encounter Office Visit Eyad Dunbar MD [facility] Sinus tachycardiaChest pain, atypicalDiastolic dysfunctionDyspnea - In-person encounter Office Visit Eyad Dunbar MD [facility] ObesityScreeningHyperlipi demia; with high crpTobacco dependence, continuousangioedema;DUE TO ACEHTN essentialVitamin D [id number] deficiencySchizophrenia, chronicChest pain, atypicalSleep apnea VITAL SIGNS Date Observation Value Provider Body Mass Index (Ratio) 42.18 kg/m2 Brittney Westbrook MD blood pressure, cuff size regular [facility] blood pressure, diastolic 89 mm[Hg] Ja et blood pressure, systolic 137 mm[Hg] [facility] pulse rate 73 /min Georgi respiratory [...] blood pressure, diastolic 83 mm[Hg] Ca therine John blood pressure, systolic 155 mm[Hg] Cat herine Oklee oxygen saturation, oximetry 97 % Brooklyn Oklee respiratory rate E&M 18 /min Catheri ne Oklee pulse rate 102 /min [place] Oklee weight E&M 292 [lb_av] [place]lee blood pressure, cuff size regular Ca therine Oklee height E&M 70 [in_i] [place] Oklee weight E&M 313 [lb_av] Solomon galarza Body [...] ation, patient education and counseling yes Brooklyn Oklee number of years as a smoker 33 a Brooklyn Oklee smoking history, tot al pack/day 1 ppd Brooklyn John cigarette use yes Brooklyn John smoking status Current every day smoker C atherine Oklee smoking/tobacco cess ation, patient education and counseling [...] Payer name Policy type / Coverage type [employer] party ID [facility] CHRONIC COMPLETE ASSURE (PPO C-SNP) Medicare [id number] [facility] Medicaid 1 [id number] ADVANCE DIRECTIVES Name Date DISCUSSED - NO DECISION MADE TREATMENT PLAN Date Name Performer [id number],C, B P today: 137/89 P rior BP: [...] a day with meals Gabe Westbrook MD [id number],C,H is stress test showed no evidence for ischemia depsite going for only 3 minutes on the treadmill. no noted ST changes Gabe Westbrook MD [id number],C,check UACR Us yelena Westbrook MD [id number],C,T he Patient was reencouraged to stop smoking. Gabe Westbrook MD [id number],B, B P today: 144/80 P rior BP: 155/83 (08/06/2021) Labs Reviewed: C reat: 0.98 (08/26/2021) C hol: 114 (08/26/2021) HDL: 43 (08/26/2021) LDL: 53 MG/DL (CALC) (08/26/2021) T (08/26/2021) Gabe Westbrook MD [id number],C,I t is atypical and i will get his latest labs and schedule him for a stress test and an echo Gabe Westbrook MD [id number],C,76 Eyad nino MD [id number],B, Eyad Serot a [id number],S,DID NOT WANT RX OR SURGERY Eyad Dunbar MD [id number],C, H is updated medication list for this problem includes: Lipitor 40 Mg Tablet (Atorvastatin) ..... 1 tablet once a day Eyad Dunbar MD [id number],S, Eyad Serot a [id number],B, Eyad Serot a [id number],B, Eyad Serot a [id number],S, neg ct pe, NEG HOTLERW Eyad Dunbar MD [id number],S, Eyad Serot a [id number],S,NEG STRESS Ball paula Dunbar MD [id number],S,PRO 19 Eyad Dunbar MD [id number],S, Eyad Serot a [id number],S, m od t o get tietarton Eyad Dunbar MD [id number],C,mod Eyad lane MD Cardiology: B P today: [...]
--- OUTSIDE RECORDS SUMMARY | 2024-08-28 12:50 | XMS_ITS | Patient Health Record ---
Author Organization [facility] Address [address] [place] [address] Support Name Relationship Address Phone Tarik Arsh Guarantor Unknown [phone] Allergies No Known Allergies Reason For Referral No Information Medications Medication SIG (Take, Route, Frequency, Duration) Notes Start Date End Date Status risperiDONE 4 MG 1 tablet Orally twic e a day Active Benztropine Mesylate 1 MG 1 tablet Orall y twice a day Active Haldol Decanoate 100 MG/ML 1.5ml (150mg total) Intramuscular every 2 weeks Active traZODone HCl 150 MG 2 tablets at bedtim e Orally Once a day Active hydrOXYzine HCl 25 mg TAKE 1 TABLET BY M OUTH AT BEDTIME NEEDED FOR ANXIETY for 30 Active amLODIPine Besylate 10 MG 1 tablet Orall y Once a day for 30 day(s) Active Atorvastatin Calcium 40 MG 1 tablet Oral ly Once a day for 30 day(s) Active Metoprolol Tartrate 50 MG 1 tablet with food Orally Twice a day for 30 day(s) Active hydroCHLOROthiazide 12.5 MG 1 capsule in the morning Orally Once a day for 30 day(s) Active Social History Tobacco Use: Social History Observation Description Date Details (start date - stop date) Current Smoker NA - NA Dont use, Tobacco Use/Smoking Question Answer Notes Are you a current smoker How many cigarettes a day do you smoke? 11 PRAPARE Question Answer Notes Date Completed/Updated: 07/06/2024 What is your current housing situation? I have h ousing Are you worried about losing your housing? No What is the highest level of school that you have finished? More than high school What is your current work situation? 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 Check all that apply I do not have problems meeting my needs Has lack of transportation k ept you from medical appointments, meetings, work or from getting things needed for daily living? No How often do you see or talk to people that you care about and feel close to? (For example: talking to friends on the phone, visiting friends or family, going to scientologist or club meetings) 1 or 2 times a week How stressed are you? Stress is when someone feels tense, nervous, anxious, or can\t sleep at night because their mind is troubled A little bit In the past year have you sp ent more than 2 nights in a row in a snf, [place] health care facility, nursing home center, or juvenile correctional facility? No Do you feel physically and e motionally safe where you currently live? Yes In the past year, have you b een afraid of your partner or ex-partner? I have not had a partner in the past year PRAPARE Score: 5 Problems Problem Type SNOMED Code ICD Code Onset Dates Problem Status W/U Status Risk Notes Problem Schizophrenia (00538863) Schizophrenia (F20.9) Active confirmed Encounters Encounter Location Date Provider Diagnosis [address] [place] [address] 07/10/2024 Plan Of Treatment No Information Insurance Providers Payer Name Payer Address Payer Phone Subscriber Number Group Number Insured Name Patient Relationship to Insured Coverage Start Date Coverage End Date [facility] Medicare Assure [address] [address] [place] [address] [id number] Arsh Montanez Self - patient is the insured 2 MEDICAID [address] [place] [address] [id number] Arsh Montanez Self - patient is the insured 2 Medical (General) History Medical History History ICD Code GERD Surgical History Surgery Date(Month/Year)
--- OUTSIDE RECORDS SUMMARY | 2024-08-28 12:50 | XMS_ITS | Data Portability ---
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 Plan of Treatment Reminders Order Date Submit Date Provider Last Modified By Organization Details Last Modified Time Details Appointments None recorded. Lab lipid panel, serum 2023 024 [email or web address] (Lab), [address] [place], [address], 4 09:41:45 TSH, serum or plasma [address] (Lab), [address] [place], [address], 4 09:41:45 CBC 2023 024 [email or web address] (Lab), [address] [place], [address], 4 09:41:45 PSA, serum or plasma 2023 024 [email or web address] (Lab), [address] [place], [address], 4 09:41:44 [email or web address] obin, total, blood 2023 024 AL[facility] (Lab), [address] [place], [address], 4 07:36:19 CMP, serum or plasma 2023 024 AL[place] [facility] (Lab), [address] [place], [address], 4 14:42:33 vitamin D, 25-hydroxy, total, serum [address] (Lab), [address] [place], [address], 3 15:03:55 TRE + rf (antinuclea r antibodies + rheumatoid factor), quantitativ e, serum [address] (Lab), [address] [place], [address], 3 15:03:14 CBC w/ auto diff [address] (Lab), [address] [place], [address], 3 15:03:30 HbA1c (hemoglobin A1c), blood [address] (Lab), [address] [place], [address], 3 15:04:33 CMP, serum or plasma [address] (Lab), [address] [place], [address], 3 15:02:20 lipid panel, serum [address] (Lab), [address] [place], [address], 3 15:02:35 iron + TIBC + ferritin, serum [email or web address] (Lab), [address] [place], [address], 3 15:02:50 TSH, serum, reflex free T4 [email or web address] (Lab), [address] [place], [address], 3 15:01:36 urinalysis, complete [email or web address]Lab), [address] [place], [address], 3 15:02:08 vitamin B12, serum [address] (Lab), [address] [place], [address], 3 15:04:19 Referral rheumatolog ist referral - Please call patient to schedule an appointment . Thank you. 2023 024 [facility], [address] [facility], [place], [address], 5 12:04:10 Procedures colonoscopy screening (PROC) - *Please call pt to schedule* 2023 024 [email or web address] 256 Lyndsey Ervin MD, [address] [facility], [facility] [address], [address], 4 11:37:20 Surgeries None recorded. Imaging None recorded. Medication Orders None recorded. Patient TargetsNo targets recorded. Patient Instructions Encounter Date Encounter Id Patient Instructions Last Modified By Organization Details Last Modified Time 02/08/2024 [id number] dementia rating scale-2* ALLEY Not available 02/15/2024 10:55:08 multi-dimensiona l health assessment questionnaire* ALLEY Not available 02/15/2024 10:55:14 care plan* Not available 02/07 15:34:45 advance care planning: care instructions Not available 02/08/2024 15:34:45 advance directiv es: care instructions Not available 02/08/2024 15:34:45 [place] Advance Directives Not available 02/08/2024 15:34:45 Personalized [...] Not available 02/08/2024 15:30:55 Reason for Referral [employer] Farm[employer] Referral for Autoimmune connective tissue disorder positive [...] Organization Details Recorded Time Dry skin dermatitis 398827824 Active 2021 Not Available [facility] 3 16:12:57 Onychomycosis 439421227 Active 2020 Not Available [facility] 3 16:12:57 Hypertensive disorder 32327491 Active 2022 CHEYENNE Leo, [facility] [employer] [facility] 3 13:59:30 Osteoarthriti s 498491967 Active 2022 JONNA Peng [address], [address], [place], [address] , [employer] [facility] 3 14:08:04 Autoimmune connective tissue disorder 734294379 Active 2022 JONNA Peng [address], [address], [place], [address] , [employer] [facility] [employer] [facility] 3 14:20:45 Vitamin D deficiency 66446575 Active 2022 JONNA Peng [address], [place], [address] , [employer] [facility] 3 14:22:50 Cobalamin deficiency 981880938 Active 2022 JONNA Peng [address], [place], [address] , [employer] [facility] 3 14:23:03 Obstructive sleep apnea syndrome 70317929 Active 2022 JONNA Peng [address], [place], [address] , [employer] [facility] 3 14:43:02 Notes:Luis Manuel Gregg MD; JONNA Chacko get [facility] sleep study Medical History: Anxiety/Schizophrenia Nicotine use Obesity Hypertension Hyperlipidemia T2DM with neuropathy SHAUN Vit B12 deficiency Vit D deficiency (+) TRE OA Onychomycosis Procedure History: Tracheostomy 2021 Colonoscopy 2021 Problem Notes None recorded. Procedures Surgical History Date Name Laterality Status Provider Name and Address Organization Details Recorded Time Medicare Wellness CPT Code, subsequent completed Gina Milton RN [place] [employer] [facility] 02/08/2024 15:10:31 Imaging Results None recorded. Procedure Notes None recorded. Medical Equipment None Reported. Allergies Allergen ID Allergen Name Allergen Category Reaction Reaction Severity Criticality Documentation Date Start Date Code Code System Note Provider Name and Address Organization Details Recorded Time 26298 lisinopri l medicatio n angioedem a Not available Not available 07/21/2022 31181 RxNorm Not Available [facility] 3 16:13:53 Medications Name Sig Start Date [...] % 98 % 89 /min 16 /min 152982. 86 g Not Available [employer] 3 16:12:39 Date Recorded Body height Body mass index (BMI) Body weight Body temperature Heart rate Oxygen saturation Oxygen saturation in Arterial blood by Pulse oximetry Systolic blood pressure Diastolic blood pressure Provider Name and Address Organization Details Last Updated DateTime 3 175.26 cm 43.7 kg/m2 146337. 34 g 97.1 [degF] 75 /min 96 % 96 % 146 mm[Hg] 82 mm[Hg] Lorin Maynard CMA [facility] [employer] 3 13:59:08 Date Recorded Body height Body mass index (BMI) Body weight Body temperature Heart rate Oxygen saturation Oxygen saturation in Arterial blood by Pulse oximetry Systolic blood pressure Diastolic blood pressure Provider Name and Address Organization Details Last Updated DateTime 3 175.26 cm 43.1 kg/m2 299606. 97 g 97.1 [degF] 64 /min 94 % 94 % 110 mm[Hg] 68 mm[Hg] Siena Carvajal MA [facility] [employer] 3 10:18:57 Date Recorded Body height Body mass index (BMI) Body weight Body temperature Heart rate Oxygen saturation Oxygen saturation in Arterial blood by Pulse oximetry Systolic blood pressure Diastolic blood pressure Provider Name and Address Organization Details Last Updated DateTime 4 175.26 cm 44.3 kg/m2 010877. 71 g 98.8 [degF] 99 /min 95 % 95 % 134 mm[Hg] 88 mm[Hg] Gina Milton RN [place] [employer] 15:15:09 Social History Question Answer Notes LastModified by Organizat ion Details LastModified Time Tobacco Smoking Status Current Every Day Smoker Not Available [employer] 07/21/2022 16:11:39 What Is Your Level Of Alcohol Consumption? Moderate [email or web address] Information not available 02/01/2023 What Is Your Level Of Caffeine Consumption? Moderate [email or web address] Information not available 02/01/2023 Have You Ever Been Counseled For Unhealthy Alcohol Use? No Information not available 02/01/2023 Do You Use Any Illicit Or Recreational Drugs? No [email or web address] Information not available 02/01/2023 Has Tobacco Cessation Counseling Been Provided? No [email or web address] Information not available 02/01/2023 Sex: Unknown Functional Status None recorded. Mental Status None recorded. Family History Relationship Description Onset Age of this Age Resolved Age Notes LastModified by Organization Details LastModified Time Father Family history of malignant neoplasm [email or web address] Not available 2022 14:00:03 Maternal Grandfather Hypertensive disorder [email or web address] Not available 2022 14:00:12 Medical History Condition Response DIABETES, TYPE Y HYPERTENSION Y Past Encounters Encounter ID Performer Location Encounter Start Date Encounter Closed Date Diagnosis/Indication Diagnosis SNOMED-CT Code Diagnosis ICD10 Code Diagnosis Note [id number] [facility] [place] [address] [place] [address] 04/02/2021 00:00:00 04/03/2021 07:05:03 [id number] [facility] [place] [address] [place] [address] 09/14/2021 00:00:00 09/14/2021 12:11:17 [id number] [facility] [place] [address] [place] [address] 12/14/2021 00:00:00 12/15/2021 10:49:55 [id number] _ATHENA_M IGRATION_ DEFAULT_1 _1 , 03/19/2022 00:00:00 03/21/2022 16:13:[id number] [facility] [place] [address] [place] [address] 07/15/2022 00:00:00 07/15/2022 15:59:[id number] [facility] Primary Care [facility] [address] [facility] [address] 02/01/2023 13:52:32 02/01/2023 14:48:53 Osteoarthritis 149576765 M19.90 stable with OTC prn Essential hypertension 09851054 I10 stable with use of metoprolol and amlodipine Abdominal pain 45567600 R10.9 Denies N/V/D, denies pain currentlyH ad colonoscop y at least 2 years ago-he is on the 5 year planWas going to have explorator y lap with a previous surgeon but declined to go through with itNotes lump to abdomen on past examPlan to review records-po ssible EGD or CT to rule out Autoimmune connective tissue disorder 671547859 M35.9 Notes generalize d pains to hips/chest /back/stom achHas never been tested for autoimmune diseaselab s obtained Vitamin D deficiency 347 35172 E55.9 Cobalamin deficiency 190 980964 E53.8 Diabetes mellitus 146872 09 E11.9 Notes being stable with metformin usage (uses 1 time/day)N otes last A1c was in the 6 range approx 2 months agodoesn't check his blood sugars Adult heal th examination 769956002 Z00.00 Encouraged fresh fruits and veggiesInc rease daily water intakeEnco urage 30 mins of daily exerciseCo lonoscopy- due in the next 2-3 yearsdecli hector flu shotsmoker -declines interventi on [id number] JONNA Peng [facility] Primary [facility] [address] [place] [address] 03/17/2023 10:03:45 03/17/2023 10:41:06 Prediabetes 798356706 R73.03 pt notified of A1c 5.8He is currently on metformin once dailyplans to f/u with own primary in [place] Autoimmune connective tissue disorder 678881702 M35.9 Pt notified of positive ANAgeneral ized pains continue to hips/chest /backHe plans to f/u with his primary for referral to rheumatolo gy Notes generalize d pains to hips/chest /back/stom achHas never been tested for autoimmune diseaselab s obtained Laboratory test result abnormal 121432203 R89.9 discussed all abnormal labs from [id number] Moody Kirby MD [facility] [employer] [facility] [address] [place] [address] 07/13/2023 10:30:56 07/13/2023 12:44:52 [id number] JONNA Peng [facility] [address] [facility] [address] [place] [address] 02/08/2024 14:56:24 02/08/2024 15:41:13 Adult health examination 182704840 Z00.00 Encouraged fresh fruits and veggiesInc rease daily water intakeEnco urage 30 mins of daily exerciseCo lonoscopy- due in the next 2-3 yearsdecli hector flu shotsmoker -declines interventi on Screening for disorder 019101294 Z13.9 Autoimmune connective tissue disorder 799790344 M35.9 Pt notified of positive ANAgeneral ized pains continue to hips/chest /backHe plans to f/u with his primary for referral to rheumatolo gy Notes generalize d pains to hips/chest /back/stom achHas never been tested for autoimmune diseaselab s obtained Screening for malignant neoplasm of colon 770805418 Z12.11 Diabetes m ellitus screening 259020901 Z13.1 Screening for malignant neoplasm of prostate 107356360 Z12.5 Thyroid di sorder screening 279443650 Z13.29 Hyperlipid emia screening 631668812 Z13.220 Anemia screening 1723156 07 Z13.0 Health Concerns Section Related Observation LastModified by Organization Detai ls LastModified Time None Recorded Concern Status LastModified by Organization Details LastModified Time None Recorded Advance Directives Directive None Recorded Payers Encounter Date Sequence Insurance Name Policy Number Policy Whitaker Covered Member ID Whitaker Member ID Guarantor Name 02/01/2023 1 [employer] (MEDICARE REPLACEMENT/AD VANTAGE - HMO) [id number] Arsh Montanez [id number] Arsh Adrian Tarik 02/01/2023 2 [place] [facility] [place] Arsh Montanez [id number] Arsh Montanez 03/17/2023 1 [employer] (MEDICARE REPLACEMENT/AD VANTAGE - HMO) [id number] Arsh Montanez [id number] Arsh Montanez 03/17/2023 2 [place] [facility] [place] [place] Arsh Montanez [id number] Arsh Montanez 07/13/2023 1 [employer] (MEDICARE REPLACEMENT/AD VANTAGE - HMO) [id number] Arsh Montanez [id number] Arsh Montanez 07/13/2023 2 [place] [facility] Arsh Montanez [id number] Arsh Montanez 02/08/2024 1 [facility] (MEDICARE REPLACEMENT/AD VANTAGE - HMO) [id number] Arsh Montanez [id number] Arsh Montanez 02/08/2024 2 [place] WHEN MED[place]ARE OR MEDICARE REPLACEMENT PRIMARY) Arsh Montanez [id number] Arsh Montanez Notes Date Note Type Note Provider Name and Address Organization Details Recorded Time 02/01/2023 text/html Pt is here to get a third opinion. Was tested for HIV and cancer. arthritis to hips knees and ankles htn diabetes ANÍBAL Peng-Heidi [address], [address], [place], [address], [employer] 02/01/2023 14:49:52 03/17/2023 text/html Pt is here to f/u on labs ANÍBAL Peng-Heidi [address], [address], [place], [address], [employer] 03/17/2023 10:43:11 07/13/2023 text/html Patient left before seen. Moody Kirby MD [address], [address], [place], [address], [employer] 07/13/2023 12:47:14 02/08/2024 text/html pt is here for physical Oliverio Ladd, ASSOCIATE CONSULTING ENGINEER-C [address] [facility], [facility] [address], [place], [address], [place] [employer] [facility] 02/08/2024 15:38:06
[2024-08-28 12:58] LABS: Prostate Specific Antigen 0.5 ng/mL (< OR = 4.0)
[2024-08-28 13:16] LABS: Hemoglobin A1C 5.4 % (<5.7)
== END 2024-08-28 11:17 | disposition home or self-care (01) ==
PROVIDERS: PCP Internal Medicine Infectious Disease; Visit Provider Internal Medicine Infectious Disease
DX: Z12.5 Encounter for screening for malignant neoplasm of prostate (principal); E11.9 Type 2 diabetes mellitus without complications
CPT/HCPCS: 36415; 80061; 83036; 84153; G0103